=== PATIENT | male | born 1925 | race Caucasian/White ===

== ENCOUNTER 2017-08-17 21:49 | Inpatient (IN) | payer OTHER ==
--- NOTE | 2017-08-17 21:51 | PDOC ---
History of Present Illness - General History Source: Patient, EMS, Old Records Exam Limitations: No Limitations - History of Present Illness Initial Comments: 08/17/17 22:17 The patient is an 89 year old male with a significant PMH of eyelid CA, AFIB (s/ p pacemaker), HTN, hyperlipidemia, diabetes, and extensive cardiac history but unclear if had CHF who presents to the emergency department via EMS from [facility] in respiratory distress. As per EMS, the patients O2 sat. in [facility] was in the 70s. EMS reports starting the patient on BiPaP en route, which brought her O2 sat. to the mid to high 80s. The patient denies any chest pain. The patient denies headache and dizziness. Denies fever, chills, nausea, vomit, diarrhea and constipation. Denies dysuria, frequency, urgency and hematuria. Allergies: Dabigatran etexilate mesylate. Past surgical history: Pacemaker placement (2005, replaced 2013). Open cholecystectomy. Right carpal tunnel release. Social history: Social alcohol use. Former smoker. No reported drug use. PCP: Dr. Carranza <Jermain Farr - Last Filed: 08/17/17 22:17> - General History Source: Patient <Cesar Alvarez - Last Filed: 08/18/17 02:50> - General Stated Complaint: SOB Time Seen by Provider: 08/17/17 21:51 Past History <Jermain Farr - Last Filed: 08/17/17 22:17> - Past Medical History Anemia: No Asthma: No Cancer: Yes (RIGHT LOWER LID) Cardiac Disorders: Yes (A-FIB,PACEMAKER,ANGINA) CVA: No COPD: No CHF: No Dementia: No (FORGETFUL) Diabetes: Yes (TYPE 2) GI Disorders: No Disorders: Yes (RECENT UTI-COMPLETED A/B THERAPY) HTN: Yes Hypercholesterolemia: Yes Liver Disease: No Seizures: No Thyroid Disease: No - Surgical History Abdominal Surgery: Yes (OPEN CHOLEY) Appendectomy: No Cardiac Surgery: Yes (PACEMAKER-2005,REPLACED 12/2013) Cholecystectomy: Yes (OPEN-1974) Lung Surgery: No Neurologic Surgery: No Orthopedic Surgery: Yes (RIGHT CARPAL TUNNEL RELEASE) - Suicide/Smoking/Psychosocial Hx Smoking History: Former smoker Have you smoked in the past 12 months: No Number of Cigarettes Smoked Daily: 20 If you are a former smoker, when did you quit?: 1988 Hx Alcohol Use: Yes (SOCIALLY) Drug/Substance Use Hx: No Substance Use Type: Alcohol Hx Substance Use Treatment: No <Cesar Alvarez - Last Filed: 08/18/17 02:50> - Past Medical History Allergies/Adverse Reactions: Allergies Allergy/AdvReac Type Severity Reaction Status Date / Time dabigatran etexilate mesylate Allergy Intermediate GUM Verified 08/17/17 22:06 [From Pradaxa] BLEEDING Home Medications: Ambulatory Orders Aspirin [Aspirin EC] 81 mg PO DAILY 03/26/15 Atenolol [Tenormin -] 25 mg PO DAILY 03/26/15 Atorvastatin Ca [Lipitor] 40 mg PO DAILY 03/26/15 Digoxin [Lanoxin -] 0.25 mg PO DAILY 03/26/15 Insulin Glargine,Hum.rec.anlog [Lantus Solostar PEN -] 60 units SQ HS 03/26/15 Sitagliptin Phosphate [Januvia] 100 mg PO DAILY 03/26/15 Warfarin Sodium [Coumadin] 5 mg PO DAILY #0 03/26/15 metFORMIN HCL [Glucophage] 1,000 mg PO BID 03/26/15 Brimonidine Tartrate [Alphagan P 0.1% -] 1 drop BID 08/18/17 Review of Systems - Review of Systems Able to Perform ROS?: Yes Comments:: 08/17/17 22:17 CONSTITUTIONAL: Absent: fever, chills, diaphoresis, generalized weakness, malaise, loss of appetite HEENT: Absent: rhinorrhea, nasal congestion, throat pain, throat swelling, difficulty swallowing, mouth swelling, ear pain, eye pain, visual Changes CARDIOVASCULAR: Absent: chest pain, syncope, palpitations, irregular heart rate, lightheadedness , peripheral edema RESPIRATORY: (+) Shortness of breath. Absent: cough, shortness of breath, dyspnea with exertion, orthopnea, wheezing, stridor, hemoptysis GASTROINTESTINAL: Absent: abdominal pain, abdominal distension, nausea, vomiting, diarrhea, constipation, melena, hematochezia GENITOURINARY: Absent: dysuria, frequency, urgency, hesitancy, hematuria, flank pain, genital pain MUSCULOSKELETAL: Absent: myalgia, arthralgia, joint swelling SKIN: Absent: rash, itching, pallor HEMATOLOGIC/IMMUNOLOGIC: Absent: easy bleeding, easy bruising, lymphadenopathy, frequent infections ENDOCRINE: Absent: unexplained weight gain, unexplained weight loss, heat intolerance, cold intolerance NEUROLOGIC: Absent: headache, focal weakness or paresthesias, dizziness, unsteady gait, seizure, mental status changes, bladder or bowel incontinence PSYCHIATRIC: Absent: anxiety, depression, suicidal or homicidal ideation, hallucinations. <Jermain Farr - Last Filed: 08/17/17 22:17> *Physical Exam - Physical Exam Comments: 08/17/17 22:18 GENERAL: Well developed, well nourished. Awake and alert. No acute distress. HEENT: Normocephalic, atraumatic. PERRLA, EOMI. No conjunctival pallor. Sclera are non- icteric. Moist mucous membranes. Oropharynx is clear. NECK: Supple. Full ROM. No JVD. Carotid pulses 2+ and symmetric, without bruits. No thyromegaly. No lymphadenopathy. CARDIOVASCULAR: (+) Tachycardic. Regular rhythm. No murmurs, rubs, or gallops. Distal pulses are 2+ and symmetric. PULMONARY: (+) Moderate respiratory distress. (+) Scattered crackles in upper lung miramontes. (+) Decreased breath sounds bilaterally. No wheezing, rales or rhonchi. ABDOMINAL: Soft. Non-tender. Non-distended. No rebound or guarding. No organomegaly. Normoactive bowel sounds. MUSCULOSKELETAL Normal range of motion at all joints. No bony deformities or tenderness. No CVA tenderness. EXTREMITIES: No cyanosis. No clubbing. No edema. No calf tenderness. SKIN: Warm and dry. Normal capillary refill. No rashes. No jaundice. NEUROLOGICAL: Alert, awake, appropriate. Cranial nerves 2-12 intact. No deficits to light touch and temperature in face, upper extremities and lower extremities. No motor deficits in the in face, upper extremities and lower extremities. Normoreflexic in the upper and lower extremities. Normal speech. Toes are downgoing bilaterally. Gait is normal without ataxia. PSYCHIATRIC: Cooperative. Good eye contact. Appropriate mood and affect. <Jermain Farr - Last Filed: 08/17/17 22:17> Heart Score/ECG Review #1 08/17/17 22:06 Vent rate 81 bpm Atrial fibrillation Left bundle bracnh block Abnormal ECG <Jermain Farr - Last Filed: 08/17/17 22:17> ED Treatment Course - LABORATORY CBC & Chemistry Diagram: 08/17/17 22:00 08/17/17 22:00 <Jermain Farr - Last Filed: 08/17/17 22:17> - LABORATORY CBC & Chemistry Diagram: 08/17/17 22:00 08/17/17 22:00 <Cesar Alvarez - Last Filed: 08/18/17 02:50> Medical Decision Making - Medical Decision Making 08/17/17 23:58 PT seen by ICU CONSUMER ADVOCATE Jennings. not an ICU candidate at this time. Dr. Alvarez: The scribe's documentation has been prepared under my direction and personally reviewed by me in its entirery. I confirm that the note above accurately reflects all work, treatment, procedures, and medical decision making performed by me. 08/18/17 02:47 Pt found to be in pulmonary edema. Pt was diuresed with Lasix 100mg IVP. Pt clinically improved. Will continue to observe here in ED. <Cesar Alvarez - Last Filed: 08/18/17 02:50> *DC/Admit/Observation/Transfer - Attestations Scribe Attestion: 08/17/17 22:18 Documentation prepared by Jermain Farr, acting as biomedical engineering professor for Cesar Alvarez DO. <Jermain Farr - Last Filed: 08/17/17 22:17> - Discharge Dispostion Admit: Yes <Cesar Alvarez - Last Filed: 08/18/17 02:50> Diagnosis at time of Disposition: Pulmonary edema Qualifiers: Chronicity: acute Qualified Code(s): J81.0 - Acute pulmonary edema - Discharge Dispostion Condition at time of disposition: Stable
[2017-08-17] MEDS ORDERED: FUROSEMIDE 40 MG/4 ML INJECTABLE VIAL IVPUSH ONE ×3 (21:53→22:32)
[2017-08-17] MEDS ORDERED: NITROGLYCERIN 2% OINTMENT - 1GM PACKET TD ONE ×2 (21:55→21:57)
[2017-08-17] MEDS ORDERED: FUROSEMIDE 40 MG/4 ML INJECTABLE VIAL ONE ×2 (21:56→22:33)
[2017-08-17 22:10] LABS: EOS % 1.6 % (0-4.5); HEMATOCRIT 45.6 % (35.4-49); HEMOGLOBIN 14.8 GM/dL (11.7-16.9); MCH 32.7 pg (25.7-33.7); MCHC 32.4 g/dl (32.0-35.9); MEAN CELL VOLUME 100.7 fl (80-96); MEAN PLT VOLUME 9.8 fl (7.5-11.1); MONO % 8.4 % (3.8-10.2); PLATELET COUNT 335 K/MM3 (134-434); RBC 4.53 M/mm3 (4.00-5.60); RDW 14.2 % (11.9-15.9); WHITE BLOOD COUNT 18.5 K/mm3 (4.0-10.0)
[2017-08-17 22:23] LABS: INR 1.48 (0.82-1.09); PROTHROMBIN TIME (PATIENT) 16.7 SEC (9.98-11.88)
[2017-08-17 22:32] LABS: ALBUMIN 3.4 g/dl (3.4-5.0); ANION GAP 11 (8-16); BILIRUBIN,TOTAL 0.5 mg/dL (0.2-1.0); BLOOD UREA NITROGEN 37 mg/dL (7-18); CALCIUM 8.4 mg/dL (8.5-10.1); CHLORIDE 102 mmol/L (98-107); CO2 21 mmol/L (21-32); CREATININE 1.5 mg/dL (0.7-1.3); MAGNESIUM 2.1 mg/dL (1.8-2.4); SGOT/AST 50 U/L (15-37); SGPT/ALT 25 U/L (12-78); SODIUM 134 mmol/L (136-145); TOT PROT 7.2 g/dl (6.4-8.2)
[2017-08-17 22:35] VITALS: BMI 25.0
[2017-08-17 22:35] LABS: ALK PHOS 110 U/L (45-117)
[2017-08-17] MEDS ORDERED: INSULIN REGULAR HUMAN 100 UNITS/ML *VIAL IVPUSH ONE (22:45)
[2017-08-17] MEDS ORDERED: CALCIUM GLUCONATE 10% - 1,000 MG/10 ML VIAL IVPUSH ONE (22:45)
[2017-08-17] MEDS ORDERED: SODIUM BICARBONATE 8.4% 50 MEQ/50 ML DISP.SYRIN IVPUSH ONE (22:45)
[2017-08-17 22:47] LABS: GLUCOSE,RANDOM 335 mg/dL (74-106)
[2017-08-17 22:48] LABS: POTASSIUM 6.1 mmol/L (3.5-5.1)
[2017-08-17] MEDS ORDERED: CALCIUM GLUCONATE 10% - 1,000 MG/10 ML VIAL ONE (23:07)
[2017-08-17] MEDS ORDERED: SODIUM BICARBONATE 8.4% - 50 ML ONE (23:07)
[2017-08-17] MEDS ORDERED: INSULIN REGULAR HUMAN 100 UNITS/ML *VIAL ONE (23:07)
[2017-08-17] MEDS ORDERED: ENOXAPARIN NA (PORCINE) 80 MG/0.8 ML DISP.SYRIN SQ SCH (23:30)
[2017-08-17] MEDS ORDERED: ENOXAPARIN NA (PORCINE) 80 MG/0.8 ML DISP.SYRIN SQ ONE ×2 (23:30→23:38)
[2017-08-17] MEDS ORDERED: VANCOMYCIN 1,000 MG in DEXTROSE 5%-WATER - 250 ML IVPB ONE (23:32)
[2017-08-17] MEDS ORDERED: PIPERACILLIN/TAZOB 3.375 GM 50 ML IVPB ONE (23:33)
--- NOTE | 2017-08-17 23:36 | HP ---
CHIEF COMPLAINT: PCP: HISTORY OF PRESENT ILLNESS: ER course was notable for: (1) (2) (3) Recent Travel: PAST MEDICAL HISTORY: PAST SURGICAL HISTORY: Social History: Smoking: Alcohol: Drugs: Family History: Allergies dabigatran etexilate mesylate [From Pradaxa] Allergy (Intermediate, Verified 12/27 22:06) GUM BLEEDING HOME MEDICATIONS: Home Medications Medication Instructions Recorded Aspirin [Aspirin EC] 81 mg PO DAILY 03/26/15 Atenolol [Tenormin -] 25 mg PO DAILY 03/26/15 Atorvastatin Ca [Lipitor] 40 mg PO DAILY 03/26/15 Digoxin [Lanoxin -] 0.25 mg PO DAILY 03/26/15 Insulin Glargine,Hum.rec.anlog 60 units SQ HS 03/26/15 [Lantus Solostar PEN -] Sitagliptin Phosphate [Januvia] 100 mg PO DAILY 03/26/15 Warfarin Sodium [Coumadin] 5 mg PO DAILY #0 03/26/15 metFORMIN HCL [Glucophage] 1,000 mg PO BID 03/26/15 REVIEW OF SYSTEMS CONSTITUTIONAL: Absent: fever, chills, diaphoresis, generalized weakness, malaise, loss of appetite, weight change HEENT: Absent: rhinorrhea, nasal congestion, throat pain, throat swelling, difficulty swallowing, mouth swelling, ear pain, eye pain, visual changes CARDIOVASCULAR: Absent: chest pain, syncope, palpitations, irregular heart rate, lightheadedness , peripheral edema RESPIRATORY: Absent: cough, shortness of breath, dyspnea with exertion, orthopnea, wheezing, stridor, hemoptysis GASTROINTESTINAL: Absent: abdominal pain, abdominal distension, nausea, vomiting, diarrhea, constipation, melena, hematochezia GENITOURINARY: Absent: dysuria, frequency, urgency, hesitancy, hematuria, flank pain, genital pain MUSCULOSKELETAL: Absent: myalgia, arthralgia, joint swelling, back pain, neck pain SKIN: Absent: rash, itching, pallor HEMATOLOGIC/IMMUNOLOGIC: Absent: easy bleeding, easy bruising, lymphadenopathy, frequent infections ENDOCRINE: Absent: unexplained weight gain, unexplained weight loss, heat intolerance, cold intolerance NEUROLOGIC: Absent: headache, focal weakness or paresthesias, dizziness, unsteady gait, seizure, mental status changes, bladder or bowel incontinence PSYCHIATRIC: Absent: anxiety, depression, suicidal or homicidal ideation, hallucinations. PHYSICAL EXAMINATION Vital Signs - 24 hr 08/17/17 08/17/17 22:05 22:06 Pulse Rate 77 Respiratory 38 H Rate Blood Pressure 172/76 O2 Sat by Pulse 98 65 L Oximetry (%) GENERAL: Awake, alert, and fully oriented, in no acute distress. HEAD: Normal with no signs of trauma. EYES: Pupils equal, round and reactive to light, extraocular movements intact, sclera anicteric, conjunctiva clear. No lid lag. EARS, NOSE, THROAT: Ears normal, nares patent, oropharynx clear without exudates. Moist mucous membranes. NECK: Normal range of motion, supple without lymphadenopathy, JVD, or masses. LUNGS: Breath sounds equal, clear to auscultation bilaterally. No wheezes, and no crackles. No accessory muscle use. HEART: Regular rate and rhythm, normal S1 and S2 without murmur, rub or gallop. ABDOMEN: Soft, nontender, not distended, normoactive bowel sounds, no guarding, no rebound, no masses. No hepatomegaly or splenomegaly. MUSCULOSKELETAL: Normal range of motion at all joints. No bony deformities or tenderness. No CVA tenderness. UPPER EXTREMITIES: 2+ pulses, warm, well-perfused. No cyanosis. No clubbing. No peripheral edema. LOWER EXTREMITIES: 2+ pulses, warm, well-perfused. No calf tenderness. No peripheral edema. NEUROLOGICAL: Cranial nerves II-XII intact. Normal speech. Normal gait. PSYCHIATRIC: Cooperative. Good eye contact. Appropriate mood and affect. SKIN: Warm, dry, normal turgor, no rashes or lesions noted, normal capillary refill. Laboratory Results - last 24 hr 08/17/17 08/17/17 08/17/17 22:00 22:00 22:00 WBC 18.5 H RBC 4.53 Hgb 14.8 Hct 45.6 MCV 100.7 H MCH 32.7 MCHC 32.4 RDW 14.2 Plt Count 335 MPV 9.8 Neutrophils % 75.0 Lymphocytes % 14.0 Monocytes % 8.4 Eosinophils % 1.6 Basophils % 1.0 PT with INR 16.70 H INR 1.48 H Sodium 134 L Potassium 6.1 H* Chloride 102 Carbon Dioxide 21 Anion Gap 11 BUN 37 H Creatinine 1.5 H Creat Clearance w eGFR 44.07 Random Glucose 335 H* Lactic Acid Calcium 8.4 L Magnesium 2.1 Total Bilirubin 0.5 AST 50 H ALT 25 Alkaline Phosphatase 110 Creatine Kinase 45 Troponin I 0.14 H B-Natriuretic Peptide Total Protein 7.2 Albumin 3.4 08/17/17 08/17/17 22:00 22:00 WBC RBC Hgb Hct MCV MCH MCHC RDW Plt Count MPV Neutrophils % Lymphocytes % Monocytes % Eosinophils % Basophils % PT with INR INR Sodium Potassium Chloride Carbon Dioxide Anion Gap BUN Creatinine Creat Clearance w eGFR Random Glucose Lactic Acid 6.9 H* Calcium Magnesium Total Bilirubin AST ALT Alkaline Phosphatase Creatine Kinase Troponin I B-Natriuretic Peptide 4683.30 H Total Protein Albumin ASSESSMENT/PLAN:
[2017-08-17] MEDS ORDERED: VANCOMYCIN 1 GRAM (PRE-DOCKED) 1,000 MG/250 ML BAG IVPB ONE (23:38)
--- NOTE | 2017-08-17 23:43 | PN ---
Teaching Attending Note Name of Resident: Layla Bunch ATTENDING PHYSICIAN STATEMENT I saw and evaluated the patient. I reviewed the resident's note and discussed the case with the resident. I agree with the resident's findings and plan as documented. SUBJECTIVE: 89 yo M with pmhx of eyelid ca, Afib (s/p PPm), HTN, HLD, DM, ? CHF who presents from [facility]. Pt. denies chest pain or pressure. Placed on BIPAP upon arrival to ED as pt. had 02 sat 0f 65%. Found to be in pulmonary edema. OBJECTIVE: Physical: VS: Vital Signs Period Temp Pulse Resp BP Sys/Hernandez Pulse Ox Last 24 Hr 77 38 172/76 65-98 GEN: NAD, Resting in bed, Awake and Alert HEENT: NCAT, PERRL, throat without erythema or exudates CARD: RRR S1, S2 RESP: Coarse breath sounds all miramontes ABD: BSX4, NTD to palpation EXT: - C/C/E CBCD WBC 18.5 K/mm3 (4.0-10.0) H 08/17/17 22:00 RBC 4.53 M/mm3 (4.00-5.60) 08/17/17 22:00 Hgb 14.8 GM/dL (11.7-16.9) 08/17/17 22:00 Hct 45.6 % (35.4-49) 08/17/17 22:00 MCV 100.7 fl (80-96) H 08/17/17 22:00 MCHC 32.4 g/dl (32.0-35.9) 08/17/17 22:00 RDW 14.2 % (11.9-15.9) 08/17/17 22:00 Plt Count 335 K/MM3 (134-434) 08/17/17 22:00 MPV 9.8 fl (7.5-11.1) 08/17/17 22:00 CMP Sodium 134 mmol/L (136-145) L 08/17/17 22:00 Potassium 6.1 mmol/L (3.5-5.1) H* 08/17/17 22:00 Chloride 102 mmol/L (98-107) 08/17/17 22:00 Carbon Dioxide 21 mmol/L (21-32) 08/17/17 22:00 Anion Gap 11 (8-16) 08/17/17 22:00 BUN 37 mg/dL (7-18) H 08/17/17 22:00 Creatinine 1.5 mg/dL (0.7-1.3) H 08/17/17 22:00 Creat Clearance w eGFR 44.07 (>60) 08/17/17 22:00 Random Glucose 335 mg/dL (74-106) H* 08/17/17 22:00 Calcium 8.4 mg/dL (8.5-10.1) L 08/17/17 22:00 Total Bilirubin 0.5 mg/dL (0.2-1.0) 08/17/17 22:00 AST 50 U/L (15-37) H 08/17/17 22:00 ALT 25 U/L (12-78) 08/17/17 22:00 Alkaline Phosphatase 110 U/L (45-117) 08/17/17 22:00 Total Protein 7.2 g/dl (6.4-8.2) 08/17/17 22:00 Albumin 3.4 g/dl (3.4-5.0) 08/17/17 22:00 CARDIAC ENZYMES Creatine Kinase 45 IU/L (39-308) 08/17/17 22:00 Troponin I 0.14 ng/ml (0.00-0.05) H 08/17/17 22:00 CXR- ? Infilterates with bilateral venous congestion. 08/17/17 22:06 Vent rate 81 bpm Atrial fibrillation Left bundle bracnh block Abnormal ECG Home Medications Medication Instructions Recorded Aspirin [Aspirin EC] 81 mg PO DAILY 03/26/15 Atenolol [Tenormin -] 25 mg PO DAILY 03/26/15 Atorvastatin Ca [Lipitor] 40 mg PO DAILY 03/26/15 Digoxin [Lanoxin -] 0.25 mg PO DAILY 03/26/15 Insulin Glargine,Hum.rec.anlog 60 units SQ HS 03/26/15 [Lantus Solostar PEN -] Sitagliptin Phosphate [Januvia] 100 mg PO DAILY 03/26/15 Warfarin Sodium [Coumadin] 5 mg PO DAILY #0 03/26/15 metFORMIN HCL [Glucophage] 1,000 mg PO BID 03/26/15 ASSESSMENT AND PLAN: 89 yo M with pmhx of eyelid ca, Afib (s/p PPm), HTN, HLD, DM, ? CHF who presents from [facility], with shortness of breath, being admitted for Acute CHF ans severe sepsis 1.) Acute Hypoxic Respiratory Failure - Repeat ABG - C/W BIPAP 2.) Acute Congestive Heart Failure - No recent echo, possible systolic - LAsix 100mg given in ED - Strict I/O - ECHO - Na/Fluid restrict - Trend Trop/EKG - C/W Lasix IV in Am - Cardiology consult 3.) Sepsis Severe - Most likely due to Pneumonia HCAP/Influenza A Positive - Droplet Percautions/Isolation/Linda-Flu Renally Dosed - Vanco/Zosyn (from MS) - ID consult - REPEAT LA - Linda Flu 4.) Elevated Troponin - Possibly Demand - LBBB unknown if old or new - Denies any chest pain - Trend Troponin/EKG - ECHO/Cards consult 5.) HLD - C/W Home meds 6.) A-Fib - Rate controlle -C/W Digoxin - On Coumadin, Not theraputic - Lovenox - Goal INR 2-3 7.) Hyperk K - S/P Calcium, Alb, Insulin/Dextrose in ED 8.) Uncontrolled DM - HOLD PO meds, including Metformin - FS - RAISS - NPO and poor po intake, Hold Lantus - Chk. HgbA1c 9.) ESTEBAN?CKD - U lytes - Trend Cr - Avoid Nephrotoxins 10.) Dvt Ppx - On Lovenox Asked for ICU Eval, not a candidate at this time
[2017-08-17 23:51] LABS: ARTERIAL BLOOD GAS BASE EXCESS -1.6 meq/l (-2-2); ARTERIAL BLOOD GAS PCO2 32.8 mmHg (35-45); ARTERIAL BLOOD GAS pH 7.43 (7.35-7.45); CARBOXYHEMOGLOBIN 1.2 gm% (0.5-2.0)
[2017-08-17 23:52] LABS: ALLENS TEST POSITIVE
--- NOTE | 2017-08-17 23:53 | PN ---
Progress Note (short form) - Note Progress Note: Asked by ED Attending to Evaluate Pt for possible ICU level of care. Briefly Mr Carty is 89 year old male with a significant PMH of eyelid CA, AFIB (s/p pacemaker), HTN, hyperlipidemia, diabetes, and extensive cardiac history unk CHF/no Echo in our records. Pt tx to emergency department via EMS from [facility] for respiratory distress. Per EMS, the patients O2 sat. in [facility] was in the 70s on [place]. EMS reports starting the patient on BiPaP en route, which improved sats to the mid to high 80s. The patient denies : LOC, chest pain , headache and dizziness, fever, chills, nausea, vomit, diarrhea and constipation. Denies dysuria, frequency, urgency and hematuria. In ED pt was afebrile, BP 170/70s, paced rhythm 70s, RR 30s. CXR with pulm edema L > R, no dense infiltrate. Pt given 100mg lasix with good UOP. Greatly improved resp status with diuresis. Started on PipTaz and Vanco for HCAP. FLu swab pending. Vital Signs Temp Pulse 77 08/17/17 22:06 Resp 38 H 08/17/17 22:06 BP 172/76 08/17/17 22:06 Pulse Ox 65 L 08/17/17 22:06 Intake & Output 08/16/17 08/17/17 08/17/17 23:59 11:59 23:59 Weight 72.575 kg Other: Height 5 ft 7 in Body Mass Index (BMI) 25.0 Weight Measurement Method Estimated by Staff Current Medications Enoxaparin Sodium (Lovenox -) 80 mg SQ ONCE BHAVIN Vancomycin HCl 1,000 mg/ (Dextrose) 250 mls @ 250 mls/hr IVPB ONCE ONE PRN Reason: Protocol Stop: 08/18/17 00:31 Piperacillin/Tazobactam/Dextrose (Zosyn 3.375gm Ivpb (Premix)) 50 mls @ 100 mls /hr IVPB ONCE ONE PRN Reason: Protocol Stop: 08/18/17 00:02 PE: GEn: non toxic non distress HEENT: no jvd, NCAT PULM: crackles bilateral bases, R > L , no wheezes ABD: soft, NT EXT: 1+ tibial edema Neuro: non focal A/ eld man with hypoxic resp failure, improving with diuresis, broad spectum ab Plan: -agree with diuresis as tolerated with BP, already improved nicely - agree with broad spectrum abx for HCAP, pending cxl - f/u flu swab - once out 1.5-2L would trial off NIV to determine if can maintain adequate ventilation and oxygenation - if cont to improve wtih this trajectory, ok for floor vs tele depending on clinical status [place] ACNP [facility] [id number]
[2017-08-17 23:54] LABS: ARTERIAL BLD GAS O2 SATURATION 99.6 % (90-98.9)
[2017-08-17 23:55] LABS: URINE APPEARANCE CLEAR; URINE BILIRUBIN NEGATIVE (NEGATIVE); URINE BLOOD NEGATIVE (NEGATIVE); URINE COLOR LTYELLOW; URINE GLUCOSE (UA) NEGATIVE (NEGATIVE); URINE KETONE NEGATIVE (NEGATIVE); URINE LEUK ESTERASE TRACE (NEGATIVE); URINE NITRITE NEGATIVE (NEGATIVE); URINE PROTEIN NEGATIVE (NEGATIVE); URINE UROBILINOGEN NEGATIVE mg/dL (0.2-1.0)
[2017-08-18] LABS: EPI CELLS RARE /HPF (FEW); URINE BACTERIA RARE /hpf (NONE SEEN); URINE MUCUS RARE
--- NOTE | 2017-08-18 00:15 | HP ---
CHIEF COMPLAINT: cough, resp distress PCP: HISTORY OF PRESENT ILLNESS: 89 y/o M with PMH dementia, cataracts, PVD, CAD, overactive bladder, hx falls, metabolic encephalopathy, eyelid CA, afib (s/p pacemaker), HTN, HLD, diabetes ( with nephropathy), hx falls, who presents to ED from [facility] with respiratory distress. As per EMS, pt's 02 sat at [facility] was into the 70's and once pt was started on BiPAP, he improved into the 80's. In ED pt on following settings: IPAP 14/EPAP 6/ Rate 38/ 100% Fi02, sat 100%. Pt currently only endorses dry cough. Denies GIBSON, fever, chills, SOB, chest pain or pressure, changes in urinary or bowel function. ER course was notable for: (1) Ca gluconate 10% x 1 (2) Lasix 80mg IVP, 60mg IVP, 40mg IVP (3) NG 2% paste (4) Sodium bicarb 50mEq IVP x 1 (5) Vanc 1g, zosyn 3.375g x 1 Recent Travel: none PAST MEDICAL HISTORY: dementia, cataracts, PVD, CAD, overactive bladder, hx falls, metabolic encephalopathy, eyelid CA, afib (s/p pacemaker), HTN, HLD, diabetes (with nephropathy), hx falls PAST SURGICAL HISTORY: pacemaker placement (2005, replaced 2013), open cholecystectomy, R carpal tunnel release Social History: Smoking: smoked in past (does not know when) 1 ppd x 8-10 yrs Alcohol: socially Drugs: denies Family History: non-contributory Allergies dabigatran etexilate mesylate [From Pradaxa] Allergy (Intermediate, Verified 12/27 22:06) GUM BLEEDING HOME MEDICATIONS: Home Medications Medication Instructions Recorded Aspirin [Aspirin EC] 81 mg PO DAILY 03/26/15 Atenolol [Tenormin -] 25 mg PO DAILY 03/26/15 Atorvastatin Ca [Lipitor] 40 mg PO DAILY 03/26/15 Digoxin [Lanoxin -] 0.25 mg PO DAILY 03/26/15 Insulin Glargine,Hum.rec.anlog 60 units SQ HS 03/26/15 [Lantus Solostar PEN -] Sitagliptin Phosphate [Januvia] 100 mg PO DAILY 03/26/15 Warfarin Sodium [Coumadin] 5 mg PO DAILY #0 03/26/15 metFORMIN HCL [Glucophage] 1,000 mg PO BID 03/26/15 REVIEW OF SYSTEMS CONSTITUTIONAL: Absent: fever, chills, diaphoresis, generalized weakness, malaise, loss of appetite, weight change HEENT: Absent: rhinorrhea, nasal congestion, throat pain, throat swelling, difficulty swallowing, mouth swelling, ear pain, eye pain, visual changes CARDIOVASCULAR: Absent: chest pain, syncope, palpitations, irregular heart rate, lightheadedness , peripheral edema RESPIRATORY: +SOB Absent: cough, shortness of breath, dyspnea with exertion, orthopnea, wheezing, stridor, hemoptysis GASTROINTESTINAL: Absent: abdominal pain, abdominal distension, nausea, vomiting, diarrhea, constipation, melena, hematochezia GENITOURINARY: Absent: dysuria, frequency, urgency, hesitancy, hematuria, flank pain, genital pain MUSCULOSKELETAL: Absent: myalgia, arthralgia, joint swelling, back pain, neck pain SKIN: Absent: rash, itching, pallor HEMATOLOGIC/IMMUNOLOGIC: Absent: easy bleeding, easy bruising, lymphadenopathy, frequent infections ENDOCRINE: Absent: unexplained weight gain, unexplained weight loss, heat intolerance, cold intolerance NEUROLOGIC: Absent: headache, focal weakness or paresthesias, dizziness, unsteady gait, seizure, mental status changes, bladder or bowel incontinence PSYCHIATRIC: Absent: anxiety, depression, suicidal or homicidal ideation, hallucinations. PHYSICAL EXAMINATION Vital Signs 08/17/17 22:06 Pulse Rate 77 Respiratory 38 H Rate Blood Pressure 172/76 O2 Sat by Pulse 65 L Oximetry (%) GENERAL: Sitting comfortably. Awake, alert, in no acute distress. On BiPAP HEAD: Normal with no signs of trauma. EYES: Pupils equal, round and reactive to light, extraocular movements intact, sclera anicteric, conjunctiva clear. EARS, NOSE, THROAT: Ears normal, nares patent, oropharynx clear without exudates. Moist mucous membranes. NECK: Normal range of motion, supple without lymphadenopathy, JVD, or masses. LUNGS: scattered rhonchi appreciated, crackles at bases. no wheezing or accessory m. usage. HEART: regular rate and rhythm, normal S1 and S2 without murmur, rub or gallop. ABDOMEN: Soft, nontender, not distended, normoactive bowel sounds, no guarding, no rebound, no masses. MUSCULOSKELETAL: Normal range of motion at all joints. No bony deformities or tenderness LOWER EXTREMITIES: 2+ posterior tibial pulses, warm, well-perfused. No calf tenderness. No peripheral edema. NEUROLOGICAL: Cranial nerves II-XII intact. Normal speech. Normal gait. Laboratory Results 08/17/17 08/17/17 08/17/17 22:00 22:00 22:00 WBC 18.5 H RBC 4.53 Hgb 14.8 Hct 45.6 MCV 100.7 H MCH 32.7 MCHC 32.4 RDW 14.2 Plt Count 335 MPV 9.8 Neutrophils % 75.0 Lymphocytes % 14.0 Monocytes % 8.4 Eosinophils % 1.6 Basophils % 1.0 PT with INR 16.70 H INR 1.48 H Pressure Support Vent Sodium 134 L Potassium 6.1 H* Chloride 102 Carbon Dioxide 21 Anion Gap 11 BUN 37 H Creatinine 1.5 H Creat Clearance w eGFR 44.07 Random Glucose 335 H* Lactic Acid Calcium 8.4 L Magnesium 2.1 Total Bilirubin 0.5 AST 50 H ALT 25 Alkaline Phosphatase 110 Creatine Kinase 45 Troponin I 0.14 H B-Natriuretic Peptide Total Protein 7.2 Albumin 3.4 Urine Color 08/17/17 08/17/17 08/17/17 22:00 22:00 23:27 INR Puncture Site Right radial ABG pH 7.43 ABG pCO2 at Pt Temp 32.8 L ABG pO2 at Pt Temp 175.0 H* ABG HCO3 21.4 L ABG O2 Sat (Measured) 99.6 H* ABG O2 Content 19.2 ABG Base Excess -1.6 Toni Test Positive Carboxyhemoglobin 1.2 Methemoglobin 0.8 O2 Delivery Device Bipap Oxygen Flow Rate 100% Vent Mode No Result Required. Vent Rate No Result Required. Random Glucose Lactic Acid 6.9 H* ALT B-Natriuretic Peptide 4683.30 H Microbiology 08/17/17 23:30 Nasopharyngeal Swab Influenza Types A,B Antigen (VADIM) - Final 08/17/17 23:30 Nasopharyngeal Swab - Final -Blood cx- pending -Urine cx- pending Radio CXR: congestion, blunting of costophrenic angles - b/l effusions, with potential superimposed infiltrate- official report pending ASSESSMENT/PLAN: 89 y/o M with PMH dementia, cataracts, PVD, CAD, overactive bladder, hx falls, metabolic encephalopathy, eyelid CA, afib (s/p pacemaker), HTN, HLD, diabetes ( with nephropathy), hx falls, who presents to ED from [facility] with respiratory distress. Pt admitted to telemetry for acute hypoxic respiratory failure 2/2 Flu, CHF exacerbation. #Acute hypoxic respiratory failure 2/2 Flu, CHF exacerbation -F/u AM ABG -Continue on BiPAP #Influenza A+ -started on Tamiflu 30mg PO BID - for 5 day course. Renally dosed -on isolation precautions- droplet #Acute CHF exacerbation -Elevated BNP -F/u ECHO -Strict I's & O's -Daily weights -Na/fluid restriction -Lasix 40mg IVP in AM, evaluate continued use. Elevated Cr #Sepsis 2/2 HCAP -Leukocytosis 18.5, lactate 6.9 -Received vanc, zosyn in ED x 1 -Continued on vanc 1g IVPB qd, zosyn 3.375g q6h for HCAP coverage -F/u repeat lactate -F/u blood cx, urine cx -F/u Urine Ag -ID consult- Dr. King #Elevated troponin most likely 2/2 demand 2/2 CHF exacerbation -Troponin +0.14, without chest pain -EKG: widening of QRS, ventricular rhythm with pacing, possible LBBB -Trend troponins -F/u EKG as needed -Cardio consult- Dr. Canas #Afib -Subtherapeutic INR 1.48, goal 2-3 -Changed from coumadin to lovenox 70mg BID for a/c -Continue digoxin 0.25 mg PO daily for rate control -Holding BB, as pt with comorbid resp issues #Hyperkalemia -widening of QRS - EKG changes, thus Ca gluconate given in ED -Repeat ca gluconate/insulin/nebs/d50 if needed -Monitor BMP #IDDM -Hold metformin, home meds - avoid lactic acidosis. Also as Cr 1.5 -ISS ACHS -BGM q4h -NPO #ESTEBAN superimposed on CKD -Follow Cr -Urine electrolytes -F/u BMP #PPX DVT: lovenox 70 SQ BID #F/E/N No fluids to avoid vol overload, CHF Monitor electrolytes, ivana K NPO #Dispo Telemetry monitoring Visit type - Emergency Visit Emergency Visit: Yes ED Registration Date: 08/17/17 Care time: The patient presented to the Emergency Department on the above date and was hospitalized for further evaluation of their emergent condition. - New Patient This patient is new to me today: Yes Date on this admission: 08/18/17 - Critical Care Critical Care patient: No
[2017-08-18] MEDS ORDERED: PIPERACILLIN/TAZOB 3.375 GM 3.375 GM/50 ML BAG IVPB ONE ×2 (00:48→08:21)
[2017-08-18] MEDS: OSELTAMIVIR PHOSPHATE 30 MG CAPSULE PO SCH ×3 (01:50→23:20)
[2017-08-18] MEDS ORDERED: PIPERACIL/TAZOB 3.375 GM 3.375 GM/50 ML PREMIX IVPB SCH (05:00)
[2017-08-18] MEDS ORDERED: FUROSEMIDE 40 MG/4 ML INJECTABLE VIAL IVPUSH ONE (06:00)
[2017-08-18 06:42] LABS: ARTERIAL BLD GAS O2 SATURATION 97.7 % (90-98.9); ARTERIAL BLOOD GAS BASE EXCESS -0.7 meq/l (-2-2); ARTERIAL BLOOD GAS PCO2 30.6 mmHg (35-45); ARTERIAL BLOOD GAS PO2 90.8 mmHg (68-100); ARTERIAL BLOOD GAS pH 7.47 (7.35-7.45)
[2017-08-18 06:43] LABS: ALLENS TEST POSITIVE
[2017-08-18 07:27] LABS: HEMATOCRIT 41.5 % (35.4-49); HEMOGLOBIN 13.6 GM/dL (11.7-16.9); MCH 32.1 pg (25.7-33.7); MCHC 32.7 g/dl (32.0-35.9); MEAN PLT VOLUME 9.9 fl (7.5-11.1); PLATELET COUNT 221 K/MM3 (134-434); RBC 4.23 M/mm3 (4.00-5.60); RDW 13.6 % (11.9-15.9); WHITE BLOOD COUNT 25.4 K/mm3 (4.0-10.0)
[2017-08-18 07:56] LABS: ANION GAP 9 (8-16); BLOOD UREA NITROGEN 42 mg/dL (7-18); CALCIUM 8.3 mg/dL (8.5-10.1); CHLORIDE 105 mmol/L (98-107); CO2 24 mmol/L (21-32); CREATININE 1.3 mg/dL (0.7-1.3); GLUCOSE,RANDOM 175 mg/dL (74-106); POTASSIUM 4.6 mmol/L (3.5-5.1); SODIUM 138 mmol/L (136-145)
[2017-08-18] MEDS ORDERED: VANCOMYCIN 1 GRAM (PRE-DOCKED) 1,000 MG/250 ML BAG IVPB ONE (08:21)
[2017-08-18] MEDS ORDERED: ENOXAPARIN NA (PORCINE) 80 MG/0.8 ML DISP.SYRIN SQ ONE (08:21)
[2017-08-18] MEDS ORDERED: DIGOXIN 0.25 MG TABLET (FP) ONE (08:21)
[2017-08-18] MEDS ORDERED: PIPERACILLIN/TAZOB 3.375 GM 3.375 GM in DEXTROSE 5%-WATER - 100 ML IVPB ONE (09:00)
--- NOTE | 2017-08-18 09:03 | CON.ID ---
Consult Consult Specialty:: infectious disease Referred by:: hospitalist Reason for Consultation:: pneumonia - History of Present Illness Chief Complaint: hypoxia History of Present Illness: 89 year old man NHR brought from [facility] with hypoxia, he reports cough at [place] no chest pain, no abdominal pain required BIPAP in ED (still on bipap) oxygen sat in 80s at [facility] per admitting history found to be positive for influenza A wbc noted to be 18.5 lactic acid 6.9 bilateral infiltrates on cxray he received tamiflu/lasiix/vanco/zosyn in ED currently on bipai in ED he is awake and following commands - History Source History Provided By: Patient, Medical Record Limitations to Obtaining History: Clinical Condition - Past Medical History Cardio/Vascular: Yes: AFIB, CAD, HTN, Hyperlipdemia Heme/Onc: Yes: Other (eyelid cancer) Endocrine: Yes: Diabetes Mellitus Additional Medical History: cataracts, overactive bladder - Past Surgical History Past Surgical History: Yes: Cholecystectomy, Permanent Pacemaker Additional Surgical History: right carpal tunnel surgery - Alcohol/Substance Use Hx Alcohol Use: Yes (SOCIALLY) - Smoking History Smoking history: Former smoker Have you smoked in the past 12 months: No Aproximately how many cigarettes per day: 20 If you are a former smoker, when did you quit?: 1987 - Social History Usual Living Arrangement: [facility] History of Recent Travel: No Home Medications - Allergies Allergies/Adverse Reactions: Allergies Allergy/AdvReac Type Severity Reaction Status Date / Time dabigatran etexilate mesylate Allergy Intermediate GUM Verified 08/17/17 22:06 [From Pradaxa] BLEEDING - Home Medications Home Medications: Ambulatory Orders Aspirin [Aspirin EC] 81 mg PO DAILY 03/26/15 Atenolol [Tenormin -] 25 mg PO DAILY 03/26/15 Atorvastatin Ca [Lipitor] 40 mg PO DAILY 03/26/15 Digoxin [Lanoxin -] 0.25 mg PO DAILY 03/26/15 Insulin Glargine,Hum.rec.anlog [Lantus Solostar PEN -] 60 units SQ HS 03/26/15 Sitagliptin Phosphate [Januvia] 100 mg PO DAILY 03/26/15 Warfarin Sodium [Coumadin] 5 mg PO DAILY #0 03/26/15 metFORMIN HCL [Glucophage] 1,000 mg PO BID 03/26/15 Brimonidine Tartrate [Alphagan P 0.1% -] 1 drop BID 08/18/17 Family Disease History - Family Disease History Family History: Unable to Obtain Review of Systems - Review of Systems Cardiovascular: denies: Chest Pain Respiratory: reports: Cough, SOB Gastrointestinal: reports: No Symptoms. denies: Abdominal Pain Genitourinary: reports: No Symptoms Physical Exam Vital Signs: Vital Signs Temperature 99.1 F 08/18/17 06:30 Pulse Rate 74 08/18/17 06:30 Respiratory Rate 29 H 08/18/17 06:30 Blood Pressure 121/53 08/18/17 06:30 O2 Sat by Pulse Oximetry (%) 100 08/18/17 06:30 Constitutional: Yes: Well Nourished, No Distress, Other (on bipap) Eyes: Yes: WNL, Conjunctiva Clear HENT: Yes: Atraumatic, Normocephalic Neck: Yes: Supple Cardiovascular: Yes: Regular Rate and Rhythm Respiratory: Yes: Regular, CTA Bilaterally, Diminished (at bases) Gastrointestinal: Yes: Normal Bowel Sounds, Soft. No: Tenderness, Epigastrium ...Rectal Exam: Yes: Deferred Edema: No Psychiatric: Yes: Alert, Oriented Labs: CBC, BMP 08/18/17 06:32 08/18/17 06:32 influenza A positive Microbiology 08/17/17 23:30 Nasopharyngeal Swab Influenza Types A,B Antigen (VADIM) - Final 08/17/17 23:30 Nasopharyngeal Swab - Final UA negative blood cultures pending Imaging - Results Chest X-ray: Report Reviewed, Image Reviewed Problem List - Problems (1) Influenza A Code(s): J10.1 - FLU DUE TO OTH IDENT INFLUENZA VIRUS W OTH RESP MANIFEST (2) Respiratory failure with hypoxia Code(s): J96.91 - RESPIRATORY FAILURE, UNSPECIFIED WITH HYPOXIA (3) Pneumonia Code(s): J18.9 - PNEUMONIA, UNSPECIFIED ORGANISM Assessment/Plan influenza A with possible HCAP-elevated lact ic acid he has a rising WBC which is concerning and not ususally seen with influenza alone overall hemodynamics and oxygenation have improved overnight would continue tamiflu would continue bs antibiotics to cover HCAP as he is from [place] history of PPM/CAD positive troponins- not unusual to see in the setting of infection, especially influenza repeat cxray
[2017-08-18] MEDS: INSULIN SLIDING SCALE (NOVOLOG) 1 VIAL SQ SCH ×4 (09:15→22:40)
[2017-08-18 09:27] LABS: PLATELET ESTIMATE ADEQUATE
[2017-08-18] MEDS ORDERED: PIPERACILLIN/TAZOB 3.375 GM/50 ML PRE-DOCKED IVPB SCH (09:30)
--- NOTE | 2017-08-18 09:52 | EKG ---
Test Reason : Blood Pressure : / mmHG Vent. Rate : 081 BPM Atrial Rate : 105 BPM P-R Int : 000 ms QRS Dur : 146 ms QT Int : 370 ms P-R-T Axes : 000 005 196 degrees QTc Int : 429 ms ATRIAL FIBRILLATION LEFT BUNDLE BRANCH BLOCK ABNORMAL ECG NO PREVIOUS ECGS AVAILABLE Confirmed by TWILA MIRELES, RADHA ([id number]) on 08/18/2017 9:51:39 AM Referred By: Confirmed By:RADHA MATTSON MD
[2017-08-18] MEDS ORDERED: VANCOMYCIN 1,000 MG in DEXTROSE 5%-WATER - 250 ML IVPB SCH (10:00)
[2017-08-18] MEDS ORDERED: VANCOMYCIN 1 GRAM (PRE-DOCKED) 1,000 MG/250 ML BAG IVPB SCH (10:00)
[2017-08-18] MEDS: DIGOXIN 0.25 MG TABLET (FP) PO SCH (10:04)
[2017-08-18] MEDS: ENOXAPARIN NA (PORCINE) 80 MG/0.8 ML DISP.SYRIN SQ SCH ×2 (10:04→23:00)
[2017-08-18] MEDS: ASPIRIN COATED 81 MG TABLET.EC PO SCH (10:29)
--- NOTE | 2017-08-18 12:02 | CON.CARD ---
Cardiology Consult (text) - Consultation Consultation Note: cc: [place] distress hpi: 89 m hx dementia, ppm, afib, hld, dm, htn, sent [place] resp distress. Hx from chart pt with dementia. In ER treated for pna, flu, chf. Remains on bipap, appears comfortable. pmh: per hpi psh: ppm, cholecystectomy social: ex tob fam: unknown ros: unable to obtain 2/2 dementia meds: Home Medications Medication Instructions Recorded Aspirin [Aspirin EC] 81 mg PO DAILY 03/26/15 Atenolol [Tenormin -] 25 mg PO DAILY 03/26/15 Atorvastatin Ca [Lipitor] 40 mg PO DAILY 03/26/15 Digoxin [Lanoxin -] 0.25 mg PO DAILY 03/26/15 Insulin Glargine,Hum.rec.anlog 60 units SQ HS 03/26/15 [Lantus Solostar PEN -] Sitagliptin Phosphate [Januvia] 100 mg PO DAILY 03/26/15 Warfarin Sodium [Coumadin] 5 mg PO DAILY #0 03/26/15 metFORMIN HCL [Glucophage] 1,000 mg PO BID 03/26/15 Brimonidine Tartrate [Alphagan P 1 drop BID 08/18/17 0.1% -] pe: Vital Signs Period Temp Pulse Resp BP Sys/Hernandez Pulse Ox Last 24 Hr 99.1 F 69-77 28-38 121-172/53-76 65-100 nad no jvd irreg, s1s2 no mrg scattered rhonchi, on bipap no le e/c/c abd nt nd pos bs no jaundice diaphoresis pos dp pt awake alert confused Laboratory Last Values WBC 25.4 K/mm3 (4.0-10.0) H D 08/18/17 06:32 RBC 4.23 M/mm3 (4.00-5.60) 08/18/17 06:32 Hgb 13.6 GM/dL (11.7-16.9) 08/18/17 06:32 Hct 41.5 % (35.4-49) 08/18/17 06:32 MCV 98.0 fl (80-96) H 08/18/17 06:32 MCH 32.1 pg (25.7-33.7) 08/18/17 06:32 MCHC 32.7 g/dl (32.0-35.9) 08/18/17 06:32 RDW 13.6 % (11.9-15.9) 08/18/17 06:32 Plt Count 221 K/MM3 (134-434) D 08/18/17 06:32 MPV 9.9 fl (7.5-11.1) 08/18/17 06:32 Total Counted 100 08/18/17 06:32 Neutrophils % No Result Required. 08/18/17 06:32 Neutrophils % (Manual) 92.0 % (42.8-82.8) H* 08/18/17 06:32 Band Neutrophils % 3.0 % 08/18/17 06:32 Lymphocytes % No Result Required. 08/18/17 06:32 Monocytes % 8.4 % (3.8-10.2) 08/17/17 22:00 Monocytes % (Manual) 5 % (3.8-10.2) 08/18/17 06:32 Eosinophils % 1.6 % (0-4.5) 08/17/17 22:00 Basophils % 1.0 % (0-2.0) 08/17/17 22:00 Platelet Estimate Adequate 08/18/17 06:32 PT with INR 16.70 SEC (9.98-11.88) H 08/17/17 22:00 INR 1.48 (0.82-1.09) H 08/17/17 22:00 Anticoagulation Therapy No Result Required. 08/17/17 23:27 Puncture Site Right radial 08/18/17 06:00 ABG pH 7.47 (7.35-7.45) H 08/18/17 06:00 ABG pCO2 at Pt Temp 30.6 mmHg (35-45) L 08/18/17 06:00 ABG pO2 at Pt Temp 90.8 mmHg (68-100) D 08/18/17 06:00 ABG HCO3 21.7 meq/L (22-26) L 08/18/17 06:00 ABG O2 Sat (Measured) 97.7 % (90-98.9) 08/18/17 06:00 ABG O2 Content 18.3 % vol (15-22) 08/18/17 06:00 ABG Base Excess -0.7 meq/l (-2-2) 02/07/18 06:00 Toni Test Positive 08/18/17 06:00 Carboxyhemoglobin 1.2 gm% (0.5-2.0) 08/17/17 23:27 Methemoglobin 0.8 % (0.4-1.5) 08/17/17 23:27 O2 Delivery Device Bipap 08/18/17 06:00 Oxygen Flow Rate 60 08/18/17 06:00 Vent Mode S/t 08/18/17 06:00 Vent Rate 16 08/18/17 06:00 Mechanical Rate No Result Required. 08/17/17 23:27 Pressure Support Vent 14/7 08/18/17 06:00 Sodium 138 mmol/L (136-145) 08/18/17 06:32 Potassium 4.6 mmol/L (3.5-5.1) D 08/18/17 06:32 Chloride 105 mmol/L (98-107) 08/18/17 06:32 Carbon Dioxide 24 mmol/L (21-32) 08/18/17 06:32 Anion Gap 9 (8-16) 08/18/17 06:32 BUN 42 mg/dL (7-18) H 08/18/17 06:32 Creatinine 1.3 mg/dL (0.7-1.3) 08/18/17 06:32 Creat Clearance w eGFR 44.07 (>60) 08/17/17 22:00 Random Glucose 175 mg/dL (74-106) H D 08/18/17 06:32 Hemoglobin A1c % 6.6 % (4.8-6.0) H 08/18/17 08:55 Lactic Acid 1.9 mmol/L (0.0-2.0) 08/18/17 09:15 Calcium 8.3 mg/dL (8.5-10.1) L 08/18/17 06:32 Magnesium 2.1 mg/dL (1.8-2.4) 08/17/17 22:00 Total Bilirubin 0.5 mg/dL (0.2-1.0) 08/17/17 22:00 AST 50 U/L (15-37) H 08/17/17 22:00 ALT 25 U/L (12-78) 08/17/17 22:00 Alkaline Phosphatase 110 U/L (45-117) 08/17/17 22:00 Creatine Kinase 45 IU/L (39-308) 08/17/17 22:00 Troponin I 0.61 ng/ml (0.00-0.05) H* D 08/18/17 06:32 B-Natriuretic Peptide 4683.30 pg/ml (5-450) H 08/17/17 22:00 Total Protein 7.2 g/dl (6.4-8.2) 08/17/17 22:00 Albumin 3.4 g/dl (3.4-5.0) 08/17/17 22:00 Urine Color Ltyellow 08/17/17 23:30 Urine Appearance Clear 08/17/17 23:30 Urine pH 5.0 (5.0-8.0) 08/17/17 23:30 Ur Specific [place] 1.009 (1.001-1.035) 08/17/17 23:30 Urine Protein Negative (NEGATIVE) 08/17/17 23:30 Urine Glucose (UA) Negative (NEGATIVE) 08/17/17 23:30 Urine Ketones Negative (NEGATIVE) 08/17/17 23:30 Urine Blood Negative (NEGATIVE) 08/17/17 23:30 Urine Nitrite Negative (NEGATIVE) 08/17/17 23:30 Urine Bilirubin Negative (NEGATIVE) 08/17/17 23:30 Urine Urobilinogen Negative mg/dL (0.2-1.0) 08/17/17 23:30 Ur Leukocyte Esterase Trace (NEGATIVE) 08/17/17 23:30 Urine WBC (Auto) 1 /hpf (3-5) 08/17/17 23:30 Urine RBC (Auto) <1 /hpf (0-3) 08/17/17 23:30 Ur Epithelial Cells Rare /HPF (FEW) 08/17/17 23:30 Urine Bacteria Rare /hpf (NONE SEEN) 08/17/17 23:30 Urine Mucus Rare 08/17/17 23:30 Ur Random Sodium 83 MMOL/L 08/18/17 07:32 Ur Random Potassium 41.9 MMOL/L 08/18/17 07:32 Ur Random Chloride 117 MMOL/L 08/18/17 07:32 cxr: ?left pna ecg: afib, rate controlled, lbbb (no old to compare) a/p: 89 m hx dementia, ppm, afib, hld, dm, htn, [place]. resp distress, pna, acute chf: -possibly multifactorial with infection and chf contributing -agree with abx -agree with trial of iv lasix (got dose yesterday and today, monitor response, cr) -check echo pos trops: -mild elevation, possibly demand ischemia -monitor trend for now -check echo -cont tele afib: -rate controlled -cont dig, check level -holding home atenolol, monitor bp -cont ac (on coumadin at [place]) ppm: -routine outpt monitoring hld: -cont statin htn: -low side, monitor off atenolol for now
[2017-08-18] MEDS: DEXTROSE 5%-0.45% SALINE 1,000 ML IV SCH (13:30)
[2017-08-18] MEDS: VANCOMYCIN 1,000 MG in DEXTROSE 5%-WATER - 250 ML IVPB SCH (14:25)
[2017-08-18] MEDS: PIPERACILLIN/TAZOB 3.375 GM 3.375 GM in DEXTROSE 5%-WATER - 100 ML IVPB SCH ×2 (17:32→18:10)
--- NOTE | 2017-08-18 17:42 | PN ---
Progress Note, Physician History of Present Illness: pulmonary alert,less dyspneic currently on nasal o2,-tachypnea. O2 sat 94%. pt positive for influenza A. - Current Medication List Current Medications: Active Medications Aspirin (Ecotrin -) 81 mg PO DAILY [facility] Last Admin: 08/18/17 10:29 Dose: 81 mg Atorvastatin Calcium (Lipitor -) 40 mg PO HS [facility] Digoxin (Lanoxin -) 0.25 mg PO DAILY [facility] Last Admin: 08/18/17 10:04 Dose: 0.25 mg Enoxaparin Sodium (Lovenox -) 70 mg SQ BID [facility] Last Admin: 08/18/17 10:04 Dose: 70 mg Dextrose/Sodium Chloride (D5-1/2ns -) 1,000 mls @ 83 mls/hr IV ASDIR [facility] Last Admin: 08/18/17 13:30 Dose: 83 mls/hr Piperacillin Sod/Tazobactam (Sod 3.375 gm/ Dextrose) 100 mls @ 200 mls/hr IVPB Q8H-IV [facility] Last Admin: 08/18/17 17:32 Dose: 200 mls/hr Vancomycin HCl 1,000 mg/ (Dextrose) 250 mls @ 166.667 mls/hr IVPB DAILY [facility] Last Admin: 08/18/17 14:25 Dose: Not Given Insulin Aspart (Novolog Vial Sliding Scale -) 1 vial SQ ACHS [facility] PRN Reason: Protocol Last Admin: 08/18/17 13:30 Dose: Not Given Oseltamivir Phosphate (Tamiflu -) 30 mg PO BID [facility] Stop: 08/23/17 01:29 Last Admin: 08/18/17 10:29 Dose: 30 mg - Objective Vital Signs: Vital Signs Temperature 99.1 F 08/18/17 06:30 Pulse Rate 63 08/18/17 13:33 Respiratory Rate 23 08/18/17 13:33 Blood Pressure 126/52 08/18/17 13:33 O2 Sat by Pulse Oximetry (%) 60 L 08/18/17 15:45 Constitutional: Yes: Well Nourished, Calm Eyes: Yes: WNL HENT: Yes: WNL Neck: Yes: WNL Cardiovascular: Yes: Pulse Irregular, S1, S2 Respiratory: Yes: Rales (BILATERAL RALES) Gastrointestinal: Yes: Normal Bowel Sounds, Soft Extremities: Yes: WNL Edema: No Labs: CBC, BMP 08/18/17 06:32 08/18/17 06:32 INR, PTT INR 1.48 (0.82-1.09) H 08/17/17 22:00 Laboratory Tests 08/17/17 08/18/17 22:00 06:00 ABG pH 7.47 H ABG pCO2 at Pt Temp 30.6 L ABG pO2 at Pt Temp 90.8 D ABG HCO3 21.7 L ABG O2 Sat (Measured) 97.7 Oxygen Flow Rate 60 Vent Rate 16 Pressure Support Vent 14/7 B-Natriuretic Peptide 4683.30 H Problem List - Problems (1) A-fib Code(s): I48.91 - UNSPECIFIED ATRIAL FIBRILLATION (2) Influenza A Code(s): J10.1 - FLU DUE TO OTH IDENT INFLUENZA VIRUS W OTH RESP MANIFEST (3) Pneumonia Code(s): J18.9 - PNEUMONIA, UNSPECIFIED ORGANISM (4) Pulmonary edema Code(s): J81.1 - CHRONIC PULMONARY EDEMA Qualifiers: Chronicity: acute Qualified Code(s): J81.0 - Acute pulmonary edema (5) Respiratory failure with hypoxia Code(s): J96.91 - RESPIRATORY FAILURE, UNSPECIFIED WITH HYPOXIA (6) Elevated troponin I level Code(s): R74.8 - ABNORMAL LEVELS OF OTHER SERUM ENZYMES (7) Acute hypoxemic respiratory failure Code(s): J96.01 - ACUTE RESPIRATORY FAILURE WITH HYPOXIA Assessment/Plan IMP ACUTE HYPOXEMIC RESPIRATORY FAILURE PNEUMONIA CHF INFLUENZA A AFIB ASHD +TROPONINS DM HTN DEMENTIA PLAN O2 NIPPV NEEDED ANTIBIOTICS PER ID CULTURES F/U CHEST X-RAY LASIX TREND TROPONINS DR ECHOLS
[2017-08-18] MEDS ORDERED: PNEUMOCOCCAL 23 VACCINE 0.5 ML VIAL IM ONE (19:56)
[2017-08-18] MEDS: ATORVASTATIN CA 40 MG TABLET (FP) PO SCH (23:05)
[2017-08-19] MEDS ORDERED: ATORVASTATIN CA 40 MG TABLET (FP) ONE (01:30)
[2017-08-19] MEDS ORDERED: ENOXAPARIN NA (PORCINE) 80 MG/0.8 ML DISP.SYRIN SQ ONE (01:30)
[2017-08-19] MEDS: PIPERACILLIN/TAZOB 3.375 GM 3.375 GM in DEXTROSE 5%-WATER - 100 ML IVPB SCH ×3 (02:43→18:45)
[2017-08-19] MEDS: INSULIN SLIDING SCALE (NOVOLOG) 1 VIAL SQ SCH ×4 (08:58→21:57)
[2017-08-19] MEDS: ASPIRIN COATED 81 MG TABLET.EC PO SCH (10:18)
[2017-08-19] MEDS: OSELTAMIVIR PHOSPHATE 30 MG CAPSULE PO SCH ×2 (10:18→23:18)
[2017-08-19] MEDS: ENOXAPARIN NA (PORCINE) 80 MG/0.8 ML DISP.SYRIN SQ SCH ×2 (10:19→21:57)
[2017-08-19] MEDS: DIGOXIN 0.25 MG TABLET (FP) PO SCH (10:20)
--- NOTE | 2017-08-19 10:34 | PN ---
Progress Note, Physician Chief Complaint: ID Still in ER awaiting bed No distress and denies SOB vancomycin zosyn day 1 along Oseltamavir - Current Medication List Current Medications: Active Medications Albuterol/Ipratropium (Duoneb -) 1 amp NEB Q4H PRN PRN Reason: SHORTNESS OF BREATH Aspirin (Ecotrin -) 81 mg PO DAILY [facility] Last Admin: 08/19/17 10:18 Dose: 81 mg Atorvastatin Calcium (Lipitor -) 40 mg PO HS [facility] Last Admin: 08/18/17 23:05 Dose: 40 mg Digoxin (Lanoxin -) 0.25 mg PO DAILY [facility] Last Admin: 08/19/17 10:20 Dose: 0.25 mg Enoxaparin Sodium (Lovenox -) 70 mg SQ BID [facility] Last Admin: 08/19/17 10:19 Dose: 70 mg Dextrose/Sodium Chloride (D5-1/2ns -) 1,000 mls @ 83 mls/hr IV ASDIR [facility] Last Admin: 08/18/17 13:30 Dose: 83 mls/hr Piperacillin Sod/Tazobactam (Sod 3.375 gm/ Dextrose) 100 mls @ 200 mls/hr IVPB Q8H-IV [facility] Last Admin: 08/19/17 02:43 Dose: 200 mls/hr Vancomycin HCl 1,000 mg/ (Dextrose) 250 mls @ 166.667 mls/hr IVPB DAILY [facility] Last Admin: 08/18/17 14:25 Dose: Not Given Insulin Aspart (Novolog Vial Sliding Scale -) 1 vial SQ ACHS [facility] PRN Reason: Protocol Last Admin: 08/19/17 08:58 Dose: 4 units Oseltamivir Phosphate (Tamiflu -) 30 mg PO BID [facility] Stop: 08/23/17 01:29 Last Admin: 08/19/17 10:18 Dose: 30 mg - Objective Vital Signs: Vital Signs Temperature 98.1 F 08/19/17 06:58 Pulse Rate 67 08/19/17 10:20 Respiratory Rate 16 08/19/17 07:22 Blood Pressure 134/52 08/19/17 07:22 O2 Sat by Pulse Oximetry (%) 95 08/19/17 07:22 Constitutional: Yes: No Distress HENT: Yes: WNL, Atraumatic Neck: Yes: WNL, Supple Cardiovascular: Yes: Regular Rate and Rhythm, S2. No: Murmur Respiratory: Yes: WNL, Regular, CTA Bilaterally, Rhonchi Gastrointestinal: Yes: WNL, Normal Bowel Sounds, Soft Edema: No Labs: CBC, BMP 08/18/17 06:32 08/18/17 06:32 INR, PTT INR 1.48 (0.82-1.09) H 08/17/17 22:00 Assessment/Plan Microbiology 08/18/17 07:32 Urine For Antigen Detection Legionella Antigen - Final 08/18/17 07:32 Urine For Antigen Detection Streptococcus pneumoniae Antigen (M - Final 08/17/17 23:30 Urine - Urine Montes Urine Culture - Final NO GROWTH OBTAINED 08/17/17 23:30 Nasopharyngeal Swab Influenza Types A,B Antigen (VADIM) - Final 08/17/17 23:30 Nasopharyngeal Swab - Final 08/17/17 22:00 Blood - Peripheral Venous Blood Culture - Preliminary NO GROWTH OBTAINED AFTER 24 HOURS, INCUBATION TO CONTINUE FOR 4 DAYS. 08/17/17 22:00 Blood - Peripheral Venous Blood Culture - Preliminary NO GROWTH OBTAINED AFTER 24 HOURS, INCUBATION TO CONTINUE FOR 4 DAYS. Laboratory Tests 08/17/17 08/17/17 08/18/17 22:00 22:00 06:32 WBC 18.5 H 25.4 H D Hgb 13.6 Hct 41.5 Plt Count 221 D BUN Creatinine Creat Clearance w eGFR 44.07 08/18/17 06:32 WBC Hgb Hct Plt Count BUN 42 H Creatinine 1.3 Creat Clearance w eGFR Assessment Influenza A Pneumonia Hypoxemia improved Atrial fibrillation Acute CHF Elevated TNI Leukomoid reaction Plan Continue bacterial coverage along with treatment of the Flu Megan MIRELES
[2017-08-19] MEDS: DEXTROSE 5%-0.45% SALINE 1,000 ML IV SCH ×3 (10:37→15:00)
[2017-08-19] MEDS: VANCOMYCIN 1,000 MG in DEXTROSE 5%-WATER - 250 ML IVPB SCH (13:39)
--- NOTE | 2017-08-19 14:30 | PN ---
Progress Note (short form) - Note Progress Note: PULMONARY Breathing better today. +nonproductive cough. No fevers recorded. Last Vital Signs Temp Pulse Resp BP Pulse Ox 99.5 F 61 20 123/44 94 L 08/19/17 12:28 08/19/17 12:28 08/19/17 12:28 08/19/17 12:28 08/19/17 13:26 Intake & Output 08/16/17 08/17/17 08/18/17 08/19/17 23:59 23:59 23:59 23:59 Intake Total 250 1282 Output Total 1700 500 Balance -1450 782 Weight 72.575 kg 70.307 kg Gen: mildly tachypneic at rest Heart: RRR Lung: scattered rhonchi Abd: soft, nontender Ext:no edema CBC, BMP 08/18/17 06:32 08/18/17 06:32 Active Medications Albuterol/Ipratropium (Duoneb -) 1 amp NEB Q4H PRN PRN Reason: SHORTNESS OF BREATH Aspirin (Ecotrin -) 81 mg PO DAILY [facility] Last Admin: 08/19/17 10:18 Dose: 81 mg Atorvastatin Calcium (Lipitor -) 40 mg PO HS [facility] Last Admin: 08/18/17 23:05 Dose: 40 mg Digoxin (Lanoxin -) 0.25 mg PO DAILY [facility] Last Admin: 08/19/17 10:20 Dose: 0.25 mg Enoxaparin Sodium (Lovenox -) 70 mg SQ BID [facility] Last Admin: 08/19/17 10:19 Dose: 70 mg Piperacillin Sod/Tazobactam (Sod 3.375 gm/ Dextrose) 100 mls @ 200 mls/hr IVPB Q8H-IV [facility] Last Admin: 08/19/17 10:37 Dose: 200 mls/hr Vancomycin HCl 1,000 mg/ (Dextrose) 250 mls @ 166.667 mls/hr IVPB DAILY [facility] Last Admin: 08/19/17 13:39 Dose: 166.667 mls/hr Dextrose/Sodium Chloride (D5-1/2ns -) 1,000 mls @ 60 mls/hr IV ASDIR [facility] Insulin Aspart (Novolog Vial Sliding Scale -) 1 vial SQ ACHS [facility] PRN Reason: Protocol Last Admin: 08/19/17 12:21 Dose: 2 units Oseltamivir Phosphate (Tamiflu -) 30 mg PO BID [facility] Stop: 08/23/17 01:29 Last Admin: 08/19/17 10:18 Dose: 30 mg Warfarin Sodium (Coumadin -) 5 mg PO DAILY@1800 [facility] A/P Acute Hypoxic Respiratory Failure Influenza A r/o Pneumonia Atrial Fibrillation CAD +Troponins likely Demand Ischemia HTN DM Dementia - antibiotics, tamiflu - f/u cultures - o2 to keep SpO2 >90% - rate control - continue anticoagulation - monitor CXR
[2017-08-19] MEDS: ALBUTEROL SO4 2.5/IPRATROPIUM 0.5 INH SOL 3 ML VIAL.NEB. NEB PRN (16:45)
[2017-08-19] MEDS ORDERED: ACETAMINOPHEN 325 MG TABLET (FP) PO ONE (17:00)
[2017-08-19] MEDS: WARFARIN NA 5 MG TABLET (UD) PO SCH (17:06)
--- NOTE | 2017-08-19 18:52 | PN ---
Progress Note, Physician Chief Complaint: Pt examined confused sister states that he is not himself per staff - Current Medication List Current Medications: Active Medications Albuterol/Ipratropium (Duoneb -) 1 amp NEB Q4H PRN PRN Reason: SHORTNESS OF BREATH Last Admin: 08/19/17 16:45 Dose: 1 amp Aspirin (Ecotrin -) 81 mg PO DAILY [facility] Last Admin: 08/19/17 10:18 Dose: 81 mg Atorvastatin Calcium (Lipitor -) 40 mg PO HS [facility] Last Admin: 08/18/17 23:05 Dose: 40 mg Digoxin (Lanoxin -) 0.25 mg PO DAILY [facility] Last Admin: 08/19/17 10:20 Dose: 0.25 mg Enoxaparin Sodium (Lovenox -) 70 mg SQ BID [facility] Last Admin: 08/19/17 10:19 Dose: 70 mg Piperacillin Sod/Tazobactam (Sod 3.375 gm/ Dextrose) 100 mls @ 200 mls/hr IVPB Q8H-IV [facility] Last Admin: 08/19/17 10:37 Dose: 200 mls/hr Vancomycin HCl 1,000 mg/ (Dextrose) 250 mls @ 166.667 mls/hr IVPB DAILY [facility] Last Admin: 08/19/17 13:39 Dose: 166.667 mls/hr Dextrose/Sodium Chloride (D5-1/2ns -) 1,000 mls @ 60 mls/hr IV ASDIR [facility] Last Admin: 08/19/17 15:00 Dose: 60 mls/hr Insulin Aspart (Novolog Vial Sliding Scale -) 1 vial SQ ACHS [facility] PRN Reason: Protocol Last Admin: 08/19/17 17:06 Dose: 2 units Oseltamivir Phosphate (Tamiflu -) 30 mg PO BID [facility] Stop: 08/23/17 01:29 Last Admin: 08/19/17 10:18 Dose: 30 mg Warfarin Sodium (Coumadin -) 5 mg PO DAILY@1800 [facility] Last Admin: 08/19/17 17:06 Dose: 5 mg - Objective Vital Signs: Vital Signs Temperature 98.8 F 08/19/17 18:14 Pulse Rate 61 08/19/17 13:45 Respiratory Rate 28 H 08/19/17 13:45 Blood Pressure 122/47 08/19/17 13:45 O2 Sat by Pulse Oximetry (%) 94 L 08/19/17 13:26 Constitutional: Yes: No Distress Cardiovascular: Yes: Regular Rate and Rhythm Respiratory: Yes: Diminished, Rhonchi Gastrointestinal: Yes: Normal Bowel Sounds, Soft. No: Abdomen, Obese, Tenderness Edema: No Labs: CBC, BMP 08/18/17 06:32 08/18/17 06:32 INR, PTT INR 1.48 (0.82-1.09) H 08/17/17 22:00 Problem List - Problems (1) A-fib Code(s): I48.91 - UNSPECIFIED ATRIAL FIBRILLATION (2) Acute hypoxemic respiratory failure Code(s): J96.01 - ACUTE RESPIRATORY FAILURE WITH HYPOXIA (3) Influenza A Code(s): J10.1 - FLU DUE TO OTH IDENT INFLUENZA VIRUS W OTH RESP MANIFEST (4) Pneumonia Code(s): J18.9 - PNEUMONIA, UNSPECIFIED ORGANISM (5) Pulmonary edema Code(s): J81.1 - CHRONIC PULMONARY EDEMA Qualifiers: Chronicity: acute Qualified Code(s): J81.0 - Acute pulmonary edema (6) Respiratory failure with hypoxia Code(s): J96.91 - RESPIRATORY FAILURE, UNSPECIFIED WITH HYPOXIA (7) Elevated troponin I level Code(s): R74.8 - ABNORMAL LEVELS OF OTHER SERUM ENZYMES Assessment/Plan PLAN droplet isolation On Iv antibiotics and Tamiflu supportive care Continue iv fluids-- has poor po intake may start supplements O2 Nebs elevated troponins-- trending down now-- demand ischemia
--- NOTE | 2017-08-19 20:10 | PN ---
Progress Note (short form) - Note Progress Note: cc: resp distress/flu S: off bipap. received both lasix and IVF yesterday. remains on iVF. states breathing better today, minimal cough. no cp, palps, dizziness. Current Medications Albuterol/Ipratropium (Duoneb -) 1 amp NEB Q4H PRN PRN Reason: SHORTNESS OF BREATH Last Admin: 08/19/17 16:45 Dose: 1 amp Aspirin (Ecotrin -) 81 mg PO DAILY [facility] Last Admin: 08/19/17 10:18 Dose: 81 mg Atorvastatin Calcium (Lipitor -) 40 mg PO HS [facility] Last Admin: 08/18/17 23:05 Dose: 40 mg Digoxin (Lanoxin -) 0.25 mg PO DAILY [facility] Last Admin: 08/19/17 10:20 Dose: 0.25 mg Enoxaparin Sodium (Lovenox -) 70 mg SQ BID [facility] Last Admin: 08/19/17 10:19 Dose: 70 mg Piperacillin Sod/Tazobactam (Sod 3.375 gm/ Dextrose) 100 mls @ 200 mls/hr IVPB Q8H-IV [facility] Last Admin: 08/19/17 18:45 Dose: 200 mls/hr Vancomycin HCl 1,000 mg/ (Dextrose) 250 mls @ 166.667 mls/hr IVPB DAILY [facility] Last Admin: 08/19/17 13:39 Dose: 166.667 mls/hr Dextrose/Sodium Chloride (D5-1/2ns -) 1,000 mls @ 60 mls/hr IV ASDIR [facility] Last Admin: 08/19/17 15:00 Dose: 60 mls/hr Insulin Aspart (Novolog Vial Sliding Scale -) 1 vial SQ ACHS [facility] PRN Reason: Protocol Last Admin: 08/19/17 17:06 Dose: 2 units Oseltamivir Phosphate (Tamiflu -) 30 mg PO BID [facility] Stop: 08/23/17 01:29 Last Admin: 08/19/17 10:18 Dose: 30 mg Warfarin Sodium (Coumadin -) 5 mg PO DAILY@1800 [facility] Last Admin: 08/19/17 17:06 Dose: 5 mg pe: Vital Signs - 24 hr 08/19/17 08/19/17 08/19/17 06:58 07:22 09:00 Temperature 98.1 F Pulse Rate Pulse Rate [ 69 65 Apical] Pulse Rate [ 16 L 16 L Left Apical] Respiratory 16 16 16 Rate Blood Pressure Blood Pressure 121/77 134/52 [Right Arm] O2 Sat by Pulse 98 95 93 L Oximetry (%) 08/19/17 08/19/17 08/19/17 10:20 12:28 13:26 Temperature 99.5 F Pulse Rate 67 61 Pulse Rate [ Apical] Pulse Rate [ Left Apical] Respiratory 20 Rate Blood Pressure 123/44 Blood Pressure [Right Arm] O2 Sat by Pulse 94 L Oximetry (%) 08/19/17 08/19/17 08/19/17 13:45 17:00 18:14 Temperature 99.7 F H 101.4 F H 98.8 F Pulse Rate 61 60 Pulse Rate [ Apical] Pulse Rate [ Left Apical] Respiratory 28 H 24 Rate Blood Pressure 122/47 132/60 Blood Pressure [Right Arm] O2 Sat by Pulse Oximetry (%) Intake & Output 08/17/17 08/18/17 08/19/17 08/20/17 07:59 07:59 07:59 07:59 Intake Total 250 1282 Output Total 400 1300 800 Balance -400 -1050 482 Weight 160 lb 0.002 oz 155 lb nad calm no jvd irreg, s1s2 no mrg scattered rhonchi, nl effort no le e/c/c abd nt nd pos bs no jaundice diaphoresis pos dp pt awake alert CBC, BMP 08/18/17 06:32 08/18/17 06:32 Laboratory Tests 08/17/17 08/17/17 08/18/17 22:00 22:00 06:00 INR 1.48 H ABG pH 7.47 H ABG pCO2 at Pt Temp 30.6 L ABG pO2 at Pt Temp 90.8 D ABG HCO3 21.7 L Troponin I 0.14 H 08/18/17 08/18/17 06:32 17:50 INR ABG pH ABG pCO2 at Pt Temp ABG pO2 at Pt Temp ABG HCO3 Troponin I 0.61 H* D 0.44 H cxr: ?left pna cxr 08/19: mild inc in congestive changes. increased bibasilar infiltrates. echo 08/2017: nl lv size/fn.. tds rwma. rv not well seen. vlaves not well seen , no gross pathology ecg: afib, rate controlled, lbbb (no old to compare) tele: intermittent v-pacing with intermittent [place] beats. underlying afib. a/p: 89 m hx dementia, ppm, afib, hld, dm, htn, sent from [place] for resp distress. resp distress, pna, acute chf: -possibly multifactorial with infection and chf contributing -agree with abx -unclear whether he needs diuresis or IVF since don't have accurate i/o's or weights and he received both iv lasix (60 on 08/17 and 40 on 08/18) as well as IVF. currently remains on maintenance fluids. cxr slightly worse today, but symptomatically improved agree so will con't current mgm't and defer lasix today and reassess tomorrow. - echo tds but no gross ab pos trops: -mild elevation, possibly demand ischemia - con't asa for now. con't statin -echo tds, but overall nl sys fn. -cont tele afib: -rate controlled -cont dig, check level -holding home atenolol, monitor bp, currently controlled. -cont ac (on coumadin). dosing per pmd. currently on lovenox bridge. ppm: -routine outpt monitoring hld: -cont statin htn: -initally on low side. atenolol held. stable for now off atenolol.
[2017-08-19] MEDS ORDERED: PT OWN MED DRAWER 7, Y5N ONE (21:51)
[2017-08-19] MEDS: ATORVASTATIN CA 40 MG TABLET (FP) PO SCH (21:58)
[2017-08-20] MEDS ORDERED: PT OWN MED DRAWER 7, Y5N ONE ×6 (01:09→22:55)
[2017-08-20] MEDS: PIPERACILLIN/TAZOB 3.375 GM 3.375 GM in DEXTROSE 5%-WATER - 100 ML IVPB SCH ×3 (01:20→17:42)
[2017-08-20] MEDS ORDERED: ACETAMINOPHEN 325 MG TABLET (FP) PO PRN (06:02)
[2017-08-20] MEDS: INSULIN SLIDING SCALE (NOVOLOG) 1 VIAL SQ SCH ×4 (06:55→21:48)
[2017-08-20 07:26] LABS: HEMOGLOBIN 10.8 GM/dL (11.7-16.9); MCH 33.1 pg (25.7-33.7); MCHC 33.8 g/dl (32.0-35.9); MEAN CELL VOLUME 97.9 fl (80-96); MEAN PLT VOLUME 9.6 fl (7.5-11.1); PLATELET COUNT 157 K/MM3 (134-434); RBC 3.27 M/mm3 (4.00-5.60); RDW 13.6 % (11.9-15.9); WHITE BLOOD COUNT 8.9 K/mm3 (4.0-10.0)
[2017-08-20 07:38] LABS: INR 1.73 (0.82-1.09); PROTHROMBIN TIME (PATIENT) 19.5 SEC (9.98-11.88)
[2017-08-20 07:57] LABS: CHLORIDE 102 mmol/L (98-107); SODIUM 138 mmol/L (136-145)
[2017-08-20 08:05] LABS: ALBUMIN 2.5 g/dl (3.4-5.0); ALK PHOS 59 U/L (45-117); ANION GAP 9 (8-16); BILIRUBIN,TOTAL 1.2 mg/dL (0.2-1.0); BLOOD UREA NITROGEN 35 mg/dL (7-18); CALCIUM 7.7 mg/dL (8.5-10.1); CO2 27 mmol/L (21-32); GLUCOSE,RANDOM 193 mg/dL (74-106); SGOT/AST 42 U/L (15-37); SGPT/ALT 17 U/L (12-78); TOT PROT 5.4 g/dl (6.4-8.2)
[2017-08-20] MEDS: DEXTROSE 5%-0.45% SALINE 1,000 ML IV SCH ×2 (10:16→17:27)
[2017-08-20] MEDS: ASPIRIN COATED 81 MG TABLET.EC PO SCH (10:17)
[2017-08-20] MEDS: DIGOXIN 0.25 MG TABLET (FP) PO SCH (10:18)
[2017-08-20] MEDS: ENOXAPARIN NA (PORCINE) 80 MG/0.8 ML DISP.SYRIN SQ SCH ×2 (10:18→21:48)
[2017-08-20] MEDS: OSELTAMIVIR PHOSPHATE 30 MG CAPSULE PO SCH ×2 (10:19→21:48)
[2017-08-20] MEDS: VANCOMYCIN 1,000 MG in DEXTROSE 5%-WATER - 250 ML IVPB SCH (10:19)
--- NOTE | 2017-08-20 10:42 | PN ---
Progress Note (short form) - Note Progress Note: awake and alert no complaints some blood tinged sputum this am no chest pain or abdominal pain less cough Vital Signs Period Temp Pulse Resp BP Sys/Hernandez Pulse Ox Last 24 Hr 98.8 F-101.4 F 60-76 20-28 122-132/44-60 93-94 cor-rrr lungs decreased bs at bases abd soft,nt ext no edema CBC, BMP 08/20/17 07:14 08/20/17 07:14 Microbiology 08/17/17 22:00 Blood - Peripheral Venous Blood Culture - Preliminary NO GROWTH OBTAINED AFTER 48 HOURS, INCUBATION TO CONTINUE FOR 3 DAYS. 08/17/17 22:00 Blood - Peripheral Venous Blood Culture - Preliminary NO GROWTH OBTAINED AFTER 48 HOURS, INCUBATION TO CONTINUE FOR 3 DAYS. 08/17/17 23:30 Urine - Urine Montes Urine Culture - Final NO GROWTH OBTAINED 08/18/17 07:32 Urine For Antigen Detection Legionella Antigen - Final 08/18/17 07:32 Urine For Antigen Detection Streptococcus pneumoniae Antigen (M - Final 08/17/17 23:30 Nasopharyngeal Swab Influenza Types A,B Antigen (VADIM) - Final 08/17/17 23:30 Nasopharyngeal Swab - Final Current Medications Acetaminophen (Tylenol -) 650 mg PO Q6H PRN PRN Reason: FEVER Last Admin: 08/20/17 06:55 Dose: 650 mg Albuterol/Ipratropium (Duoneb -) 1 amp NEB Q4H PRN PRN Reason: SHORTNESS OF BREATH Last Admin: 08/19/17 16:45 Dose: 1 amp Aspirin (Ecotrin -) 81 mg PO DAILY [facility] Last Admin: 08/20/17 10:17 Dose: 81 mg Atorvastatin Calcium (Lipitor -) 40 mg PO HS [facility] Last Admin: 08/19/17 21:58 Dose: 40 mg Digoxin (Lanoxin -) 0.25 mg PO DAILY [facility] Last Admin: 08/20/17 10:18 Dose: 0.25 mg Enoxaparin Sodium (Lovenox -) 70 mg SQ BID [facility] Last Admin: 08/20/17 10:18 Dose: 70 mg Piperacillin Sod/Tazobactam (Sod 3.375 gm/ Dextrose) 100 mls @ 200 mls/hr IVPB Q8H-IV [facility] Last Admin: 08/20/17 10:20 Dose: 200 mls/hr Vancomycin HCl 1,000 mg/ (Dextrose) 250 mls @ 166.667 mls/hr IVPB DAILY [facility] Last Admin: 08/20/17 10:19 Dose: 166.667 mls/hr Dextrose/Sodium Chloride (D5-1/2ns -) 1,000 mls @ 60 mls/hr IV ASDIR [facility] Last Admin: 08/20/17 10:16 Dose: 60 mls/hr Insulin Aspart (Novolog Vial Sliding Scale -) 1 vial SQ ACHS [facility] PRN Reason: Protocol Last Admin: 08/20/17 06:55 Dose: 2 units Oseltamivir Phosphate (Tamiflu -) 30 mg PO BID [facility] Stop: 08/23/17 01:29 Last Admin: 08/20/17 10:19 Dose: 30 mg Warfarin Sodium (Coumadin -) 5 mg PO DAILY@1800 [facility] Last Admin: 08/19/17 17:06 Dose: 5 mg cxray ?RML infiltrate a/p Influenza A HCAP ?CHF send sputum culture clinically improved continue tamiflu/zosyn/vancomycin leukocytosis resolved Problem List - Problems (1) Influenza A Code(s): J10.1 - FLU DUE TO OTH IDENT INFLUENZA VIRUS W OTH RESP MANIFEST (2) Respiratory failure with hypoxia Code(s): J96.91 - RESPIRATORY FAILURE, UNSPECIFIED WITH HYPOXIA (3) Pneumonia Code(s): J18.9 - PNEUMONIA, UNSPECIFIED ORGANISM
--- NOTE | 2017-08-20 10:56 | PN ---
Progress Note (short form) - Note Progress Note: cc: resp distress/flu S: off bipap. states breathing better today, minimal cough. no cp, palps, dizziness. Current Medications Generic Name Dose Route Start Last Admin Trade Name Freq PRN Reason Stop Dose Admin Acetaminophen 650 mg 08/20/17 06:02 08/20/17 06:55 Tylenol - PO 650 mg Q6H PRN Administration FEVER Albuterol/Ipratropium 1 amp 08/18/17 17:47 08/19/17 16:45 Duoneb - NEB 1 amp Q4H PRN Administration SHORTNESS OF BREATH Aspirin 81 mg 08/18/17 10:00 08/20/17 10:17 Ecotrin - PO 81 mg DAILY [facility] Administration Atorvastatin Calcium 40 mg 08/18/17 22:00 08/19/17 21:58 Lipitor - PO 40 mg HS [facility] Administration Digoxin 0.25 mg 08/18/17 10:00 08/20/17 10:18 Lanoxin - PO 0.25 mg DAILY [facility] Administration Enoxaparin Sodium 70 mg 08/18/17 10:00 08/20/17 10:18 Lovenox - SQ 70 mg BID [facility] Administration Piperacillin Sod/Tazobactam 100 mls @ 200 mls/hr 08/18/17 14:00 08/20/17 10: 20 Sod 3.375 gm/ Dextrose IVPB 200 mls/hr Q8H-IV [facility] Administration Vancomycin HCl 1,000 mg/ 250 mls @ 166.667 mls/hr 08/18/17 14:15 08/20/17 10: 19 Dextrose IVPB 166.667 mls/hr DAILY [facility] Administration Dextrose/Sodium Chloride 1,000 mls @ 60 mls/hr 08/19/17 14:07 08/20/17 10:16 D5-1/2ns - IV 60 mls/hr ASDIR [facility] Administration Insulin Aspart 1 vial 08/18/17 07:00 08/20/17 06:55 Novolog Vial Sliding Scale - SQ 2 units ACHS [facility] Administration Protocol Oseltamivir Phosphate 30 mg 08/18/17 01:30 08/20/17 10:19 Tamiflu - PO 08/23/17 01:29 30 mg BID [facility] Administration Warfarin Sodium 5 mg 08/19/17 18:00 08/19/17 17:06 Coumadin - PO 5 mg DAILY@1800 [facility] Administration pe: Vital Signs Period Temp Pulse Resp BP Sys/Hernandez Pulse Ox Last 24 Hr 98.8 F-101.4 F 60-76 20-28 122-132/44-60 93-94 nad calm no jvd irreg, s1s2 no mrg scattered rhonchi, nl effort no le e/c/c abd nt nd pos bs no jaundice diaphoresis pos dp pt awake alert CBC, BMP 08/20/17 07:14 08/20/17 07:14 echo 08/2017: nl lv size/fn.. tds rwma. rv not well seen. vlaves not well seen , no gross pathology ecg: afib, rate controlled, lbbb (no old to compare) tele: intermittent v-pacing with intermittent [place] beats. underlying afib. a/p: 89 m hx dementia, ppm, afib, hld, dm, htn, sent from [facility] for resp distress. resp distress, pna, acute chf: -possibly multifactorial with infection and chf contributing -agree with abx -unclear whether he needs diuresis or IVF since don't have accurate i/o's or weights and he received both iv lasix (60 on 08/17 and 40 on 08/18) as well as IVF. symptomatically improved agree so will con't current mgm't and defer lasix for now. - echo tds but no gross ab pos trops: -mild elevation, flat trend, likely demand ischemia. no signs acs - con't asa for now. con't statin -echo tds, but overall nl sys fn. -cont tele afib: -rate controlled -cont dig, level ok -holding home atenolol, monitor bp, currently controlled. -cont ac (on coumadin) ppm: -routine outpt monitoring hld: -cont statin htn: -initally on low side. atenolol held. stable for now off atenolol.
--- NOTE | 2017-08-20 14:17 | PN ---
Progress Note, Physician History of Present Illness: pulmonary alert,feeling better,less congested - Current Medication List Current Medications: Active Medications Acetaminophen (Tylenol -) 650 mg PO Q6H PRN PRN Reason: FEVER Last Admin: 08/20/17 06:55 Dose: 650 mg Albuterol/Ipratropium (Duoneb -) 1 amp NEB Q4H PRN PRN Reason: SHORTNESS OF BREATH Last Admin: 08/19/17 16:45 Dose: 1 amp Aspirin (Ecotrin -) 81 mg PO DAILY [facility] Last Admin: 08/20/17 10:17 Dose: 81 mg Atorvastatin Calcium (Lipitor -) 40 mg PO HS [facility] Last Admin: 08/19/17 21:58 Dose: 40 mg Digoxin (Lanoxin -) 0.25 mg PO DAILY [facility] Last Admin: 08/20/17 10:18 Dose: 0.25 mg Enoxaparin Sodium (Lovenox -) 70 mg SQ BID [facility] Last Admin: 08/20/17 10:18 Dose: 70 mg Piperacillin Sod/Tazobactam (Sod 3.375 gm/ Dextrose) 100 mls @ 200 mls/hr IVPB Q8H-IV [facility] Last Admin: 08/20/17 10:20 Dose: 200 mls/hr Vancomycin HCl 1,000 mg/ (Dextrose) 250 mls @ 166.667 mls/hr IVPB DAILY [facility] Last Admin: 08/20/17 10:19 Dose: 166.667 mls/hr Dextrose/Sodium Chloride (D5-1/2ns -) 1,000 mls @ 60 mls/hr IV ASDIR [facility] Last Admin: 08/20/17 10:16 Dose: 60 mls/hr Insulin Aspart (Novolog Vial Sliding Scale -) 1 vial SQ ACHS [facility] PRN Reason: Protocol Last Admin: 08/20/17 11:53 Dose: 2 units Oseltamivir Phosphate (Tamiflu -) 30 mg PO BID [facility] Stop: 08/23/17 01:29 Last Admin: 08/20/17 10:19 Dose: 30 mg Warfarin Sodium (Coumadin -) 5 mg PO DAILY@1800 [facility] Last Admin: 08/19/17 17:06 Dose: 5 mg - Objective Vital Signs: Vital Signs Temperature 98.4 F 08/20/17 10:00 Pulse Rate 65 08/20/17 10:18 Respiratory Rate 20 08/20/17 10:00 Blood Pressure 115/55 08/20/17 10:00 O2 Sat by Pulse Oximetry (%) 96 08/20/17 09:00 Constitutional: Yes: Well Nourished, Calm Eyes: Yes: WNL HENT: Yes: WNL Neck: Yes: WNL Cardiovascular: Yes: Pulse Irregular, S1, S2 Respiratory: Yes: Rhonchi (scattered rhonchi) Gastrointestinal: Yes: Normal Bowel Sounds, Soft Extremities: Yes: WNL Edema: No Labs: CBC, BMP 08/20/17 07:14 08/20/17 07:14 INR, PTT INR 1.73 (0.82-1.09) H 08/20/17 07:14 Problem List - Problems (1) A-fib Code(s): I48.91 - UNSPECIFIED ATRIAL FIBRILLATION (2) Influenza A Code(s): J10.1 - FLU DUE TO OTH IDENT INFLUENZA VIRUS W OTH RESP MANIFEST (3) Pneumonia Code(s): J18.9 - PNEUMONIA, UNSPECIFIED ORGANISM (4) Pulmonary edema Code(s): J81.1 - CHRONIC PULMONARY EDEMA Qualifiers: Chronicity: acute Qualified Code(s): J81.0 - Acute pulmonary edema (5) Respiratory failure with hypoxia Code(s): J96.91 - RESPIRATORY FAILURE, UNSPECIFIED WITH HYPOXIA (6) Elevated troponin I level Code(s): R74.8 - ABNORMAL LEVELS OF OTHER SERUM ENZYMES (7) Acute hypoxemic respiratory failure Code(s): J96.01 - ACUTE RESPIRATORY FAILURE WITH HYPOXIA Assessment/Plan Problem List - Problems (1) A-fib Code(s): I48.91 - UNSPECIFIED ATRIAL FIBRILLATION (2) Influenza A Code(s): J10.1 - FLU DUE TO OTH IDENT INFLUENZA VIRUS W OTH RESP MANIFEST (3) Pneumonia Code(s): J18.9 - PNEUMONIA, UNSPECIFIED ORGANISM (4) Pulmonary edema Code(s): J81.1 - CHRONIC PULMONARY EDEMA Qualifiers: Chronicity: acute Qualified Code(s): J81.0 - Acute pulmonary edema (5) Respiratory failure with hypoxia Code(s): J96.91 - RESPIRATORY FAILURE, UNSPECIFIED WITH HYPOXIA (6) Elevated troponin I level Code(s): R74.8 - ABNORMAL LEVELS OF OTHER SERUM ENZYMES (7) Acute hypoxemic respiratory failure Code(s): J96.01 - ACUTE RESPIRATORY FAILURE WITH HYPOXIA Assessment/Plan IMP ACUTE HYPOXEMIC RESPIRATORY FAILURE PNEUMONIA CHF INFLUENZA A AFIB ASHD +TROPONINS DM HTN DEMENTIA PLAN O2 NIPPV NEEDED ANTIBIOTICS PER ID TAMIFLU F/U CHEST X-RAY LASIX TREND TROPONINS DR ECHOLS
[2017-08-20] MEDS: WARFARIN NA 5 MG TABLET (UD) PO SCH (17:42)
--- NOTE | 2017-08-20 18:26 | PN ---
Progress Note (short form) - Note Progress Note: pt seen/ examined . chart reviewed awake/ comfortable denies pain enganges in meaningful conversation Vital Signs Temp 98.6 F 08/20/17 15:50 Pulse 64 08/20/17 15:50 Resp 20 08/20/17 15:50 BP 125/61 08/20/17 15:50 Pulse Ox 96 08/20/17 09:00 Intake & Output 08/19/17 08/20/17 08/20/17 23:59 11:59 23:59 Intake Total 1010 1020 Output Total 550 200 500 Balance -550 810 520 Intake: IV 720 720 D5-1/2Ns - 1,000 ml @ 60 720 720 mls/hr IV ASDIR BHAVIN Rx#: [id number] IVPB 50 300 Oral 240 Output: Urine 550 200 500 Montes 550 200 500 Other: Voiding Method Indwelling Catheter Indwelling Catheter Indwelling Catheter # Unmeasured Voids Montes 0 Bowel Movement No No Active Medications Acetaminophen (Tylenol -) 650 mg PO Q6H PRN PRN Reason: FEVER Last Admin: 08/20/17 06:55 Dose: 650 mg Albuterol/Ipratropium (Duoneb -) 1 amp NEB Q4H PRN PRN Reason: SHORTNESS OF BREATH Last Admin: 08/19/17 16:45 Dose: 1 amp Aspirin (Ecotrin -) 81 mg PO DAILY [facility] Last Admin: 08/20/17 10:17 Dose: 81 mg Atorvastatin Calcium (Lipitor -) 40 mg PO HS [facility] Last Admin: 08/19/17 21:58 Dose: 40 mg Digoxin (Lanoxin -) 0.25 mg PO DAILY [facility] Last Admin: 08/20/17 10:18 Dose: 0.25 mg Enoxaparin Sodium (Lovenox -) 70 mg SQ BID [facility] Last Admin: 08/20/17 10:18 Dose: 70 mg Piperacillin Sod/Tazobactam (Sod 3.375 gm/ Dextrose) 100 mls @ 200 mls/hr IVPB Q8H-IV [facility] Last Admin: 08/20/17 17:42 Dose: 200 mls/hr Vancomycin HCl 1,000 mg/ (Dextrose) 250 mls @ 166.667 mls/hr IVPB DAILY [facility] Last Admin: 08/20/17 10:19 Dose: 166.667 mls/hr Dextrose/Sodium Chloride (D5-1/2ns -) 1,000 mls @ 60 mls/hr IV ASDIR [facility] Last Admin: 08/20/17 17:27 Dose: Not Given Insulin Aspart (Novolog Vial Sliding Scale -) 1 vial SQ ACHS [facility] PRN Reason: Protocol Last Admin: 08/20/17 17:42 Dose: 2 units Oseltamivir Phosphate (Tamiflu -) 30 mg PO BID [facility] Stop: 08/23/17 01:29 Last Admin: 08/20/17 10:19 Dose: 30 mg Warfarin Sodium (Coumadin -) 5 mg PO DAILY@1800 [facility] Last Admin: 08/20/17 17:42 Dose: 5 mg CBC, BMP 08/20/17 07:14 08/20/17 07:14 Microbiology 08/17/17 22:00 Blood Culture - Preliminary Blood - Peripheral Venous NO GROWTH OBTAINED AFTER 48 HOURS, INCUBATION TO CONTINUE FOR 3 DAYS. 08/17/17 22:00 Blood Culture - Preliminary Blood - Peripheral Venous NO GROWTH OBTAINED AFTER 48 HOURS, INCUBATION TO CONTINUE FOR 3 DAYS. - Objective Constitutional: Yes: No Distress. comfortable. Cardiovascular: Yes: Regular Rate and Rhythm Respiratory: Yes: Diminished at bases Gastrointestinal: Yes: Normal Bowel Sounds, Soft. No: Abdomen, Obese, Tenderness Edema: No Problem List - Problems (1) A-fib Code(s): I48.91 - UNSPECIFIED ATRIAL FIBRILLATION (2) Acute hypoxemic respiratory failure Code(s): J96.01 - ACUTE RESPIRATORY FAILURE WITH HYPOXIA (3) Influenza A Code(s): J10.1 - FLU DUE TO OTH IDENT INFLUENZA VIRUS W OTH RESP MANIFEST (4) Pneumonia Code(s): J18.9 - PNEUMONIA, UNSPECIFIED ORGANISM (5) Pulmonary edema Code(s): J81.1 - CHRONIC PULMONARY EDEMA Qualifiers: Chronicity: acute Qualified Code(s): J81.0 - Acute pulmonary edema (6) Respiratory failure with hypoxia Code(s): J96.91 - RESPIRATORY FAILURE, UNSPECIFIED WITH HYPOXIA (7) Elevated troponin I level Code(s): R74.8 - ABNORMAL LEVELS OF OTHER SERUM ENZYMES Assessment/Plan clinically better continue current management droplet precautions abx monitor inr discussed with nursing staff
[2017-08-20] MEDS ORDERED: INSULIN (NOVOLOG) ASPART 100 UNITS/ML 10ML VIAL ONE (21:36)
[2017-08-20] MEDS: ATORVASTATIN CA 40 MG TABLET (FP) PO SCH (21:48)
[2017-08-21] MEDS: PIPERACILLIN/TAZOB 3.375 GM 3.375 GM in DEXTROSE 5%-WATER - 100 ML IVPB SCH ×3 (01:53→17:06)
[2017-08-21] MEDS: DEXTROSE 5%-0.45% SALINE 1,000 ML IV SCH (01:54)
[2017-08-21] MEDS: INSULIN SLIDING SCALE (NOVOLOG) 1 VIAL SQ SCH ×4 (06:23→22:24)
[2017-08-21] MEDS ORDERED: PT OWN MED DRAWER 7, Y5N ONE ×4 (08:58→22:20)
[2017-08-21] MEDS: ASPIRIN COATED 81 MG TABLET.EC PO SCH (10:01)
[2017-08-21] MEDS: ENOXAPARIN NA (PORCINE) 80 MG/0.8 ML DISP.SYRIN SQ SCH (10:01)
[2017-08-21] MEDS: DIGOXIN 0.25 MG TABLET (FP) PO SCH (10:01)
[2017-08-21] MEDS: OSELTAMIVIR PHOSPHATE 30 MG CAPSULE PO SCH ×2 (10:01→22:24)
[2017-08-21] MEDS: VANCOMYCIN 1,000 MG in DEXTROSE 5%-WATER - 250 ML IVPB SCH (10:01)
[2017-08-21 10:49] LABS: INR 3.67 (0.82-1.09); PROTHROMBIN TIME (PATIENT) 41.5 SEC (9.98-11.88)
--- NOTE | 2017-08-21 11:19 | PN ---
Progress Note, Physician Chief Complaint: Pt examined mental status better more alert eating better per staff - Current Medication List Current Medications: Active Medications Acetaminophen (Tylenol -) 650 mg PO Q6H PRN PRN Reason: FEVER Last Admin: 08/20/17 06:55 Dose: 650 mg Albuterol/Ipratropium (Duoneb -) 1 amp NEB Q4H PRN PRN Reason: SHORTNESS OF BREATH Last Admin: 08/19/17 16:45 Dose: 1 amp Aspirin (Ecotrin -) 81 mg PO DAILY [facility] Last Admin: 08/21/17 10:01 Dose: 81 mg Atorvastatin Calcium (Lipitor -) 40 mg PO HS [facility] Last Admin: 08/20/17 21:48 Dose: 40 mg Digoxin (Lanoxin -) 0.25 mg PO DAILY [facility] Last Admin: 08/21/17 10:01 Dose: 0.25 mg Piperacillin Sod/Tazobactam (Sod 3.375 gm/ Dextrose) 100 mls @ 200 mls/hr IVPB Q8H-IV [facility] Last Admin: 08/21/17 10:02 Dose: 200 mls/hr Vancomycin HCl 1,000 mg/ (Dextrose) 250 mls @ 166.667 mls/hr IVPB DAILY [facility] [place] Last Admin: 08/21/17 10:01 Dose: 166.667 mls/hr Dextrose/Sodium Chloride (D5-1/2ns -) 1,000 mls @ 60 mls/hr IV ASDIR [facility] [place] Last Admin: 08/21/17 01:54 Dose: 60 mls/hr Insulin Aspart (Novolog Vial Sliding Scale -) 1 vial SQ ACHS [facility] [place] PRN Reason: Protocol Last Admin: 08/21/17 06:23 Dose: 2 units Oseltamivir Phosphate (Tamiflu -) 30 mg PO BID [facility] Stop: 08/23/17 01:29 Last Admin: 08/21/17 10:01 Dose: 30 mg - Objective Vital Signs: Vital Signs Temperature 98 F 08/21/17 06:00 Pulse Rate 64 08/21/17 10:01 Respiratory Rate 20 08/21/17 06:00 Blood Pressure 123/65 08/21/17 06:00 O2 Sat by Pulse Oximetry (%) 94 L 08/21/17 08:37 Constitutional: Yes: No Distress, Calm Cardiovascular: Yes: Pulse Irregular Respiratory: Yes: Diminished Gastrointestinal: Yes: Normal Bowel Sounds, Soft. No: Tenderness Edema: No Labs: CBC, BMP 08/20/17 07:14 08/20/17 07:14 INR, PTT INR 3.67 (0.82-1.09) H D 08/21/17 10:10 Problem List - Problems (1) A-fib Code(s): I48.91 - UNSPECIFIED ATRIAL FIBRILLATION Qualifiers: Atrial fibrillation type: permanent Qualified Code(s): I48.2 - Chronic atrial fibrillation (2) Acute hypoxemic respiratory failure Code(s): J96.01 - ACUTE RESPIRATORY FAILURE WITH HYPOXIA (3) Influenza A Code(s): J10.1 - FLU DUE TO OTH IDENT INFLUENZA VIRUS W OTH RESP MANIFEST (4) Pneumonia Code(s): J18.9 - PNEUMONIA, UNSPECIFIED ORGANISM (5) Pulmonary edema Code(s): J81.1 - CHRONIC PULMONARY EDEMA Qualifiers: Chronicity: acute Qualified Code(s): J81.0 - Acute pulmonary edema (6) Respiratory failure with hypoxia Code(s): J96.91 - RESPIRATORY FAILURE, UNSPECIFIED WITH HYPOXIA (7) Elevated troponin I level Code(s): R74.8 - ABNORMAL LEVELS OF OTHER SERUM ENZYMES Assessment/Plan PLAN droplet isolation On Iv antibiotics and Tamiflu supportive care dc iv fluids dc Lovenox and hold coumadin today-- INR elevated-- monitor may start supplements PT eval O2 Nebs elevated troponins-- trending down now-- demand ischemia
--- NOTE | 2017-08-21 11:49 | PN ---
Progress Note, Physician History of Present Illness: pulmonary alert,feeling better,dyspnea improving - Current Medication List Current Medications: Active Medications Acetaminophen (Tylenol -) 650 mg PO Q6H PRN PRN Reason: FEVER Last Admin: 08/20/17 06:55 Dose: 650 mg Albuterol/Ipratropium (Duoneb -) 1 amp NEB Q4H PRN PRN Reason: SHORTNESS OF BREATH Last Admin: 08/19/17 16:45 Dose: 1 amp Aspirin (Ecotrin -) 81 mg PO DAILY [facility] Last Admin: 08/21/17 10:01 Dose: 81 mg Atorvastatin Calcium (Lipitor -) 40 mg PO HS [facility] Last Admin: 08/20/17 21:48 Dose: 40 mg Digoxin (Lanoxin -) 0.25 mg PO DAILY [facility] Last Admin: 08/21/17 10:01 Dose: 0.25 mg Piperacillin Sod/Tazobactam (Sod 3.375 gm/ Dextrose) 100 mls @ 200 mls/hr IVPB Q8H-IV [facility] Last Admin: 08/21/17 10:02 Dose: 200 mls/hr Vancomycin HCl 1,000 mg/ (Dextrose) 250 mls @ 166.667 mls/hr IVPB DAILY [facility] Last Admin: 08/21/17 10:01 Dose: 166.667 mls/hr Insulin Aspart (Novolog Vial Sliding Scale -) 1 vial SQ ACHS [facility] PRN Reason: Protocol Last Admin: 08/21/17 06:23 Dose: 2 units Oseltamivir Phosphate (Tamiflu -) 30 mg PO BID [facility] Stop: 08/23/17 01:29 Last Admin: 08/21/17 10:01 Dose: 30 mg - Objective Vital Signs: Vital Signs Temperature 98 F 08/21/17 06:00 Pulse Rate 64 08/21/17 10:01 Respiratory Rate 20 08/21/17 06:00 Blood Pressure 123/65 08/21/17 06:00 O2 Sat by Pulse Oximetry (%) 94 L 08/21/17 08:37 Constitutional: Yes: Well Nourished, Calm Eyes: Yes: WNL HENT: Yes: WNL Neck: Yes: WNL Cardiovascular: Yes: Pulse Irregular, S1, S2 Respiratory: Yes: Rales (el crackles and scattered rhonchi) Gastrointestinal: Yes: Normal Bowel Sounds, Soft Extremities: Yes: WNL Edema: No Labs: CBC, BMP 08/20/17 07:14 08/20/17 07:14 INR, PTT INR 3.67 (0.82-1.09) H D 08/21/17 10:10 Problem List - Problems (1) A-fib Code(s): I48.91 - UNSPECIFIED ATRIAL FIBRILLATION (2) Influenza A Code(s): J10.1 - FLU DUE TO OTH IDENT INFLUENZA VIRUS W OTH RESP MANIFEST (3) Pneumonia Code(s): J18.9 - PNEUMONIA, UNSPECIFIED ORGANISM (4) Pulmonary edema Code(s): J81.1 - CHRONIC PULMONARY EDEMA Qualifiers: Chronicity: acute Qualified Code(s): J81.0 - Acute pulmonary edema (5) Respiratory failure with hypoxia Code(s): J96.91 - RESPIRATORY FAILURE, UNSPECIFIED WITH HYPOXIA (6) Elevated troponin I level Code(s): R74.8 - ABNORMAL LEVELS OF OTHER SERUM ENZYMES (7) Acute hypoxemic respiratory failure Code(s): J96.01 - ACUTE RESPIRATORY FAILURE WITH HYPOXIA Assessment/Plan Problem List - Problems (1) A-fib Code(s): I48.91 - UNSPECIFIED ATRIAL FIBRILLATION (2) Influenza A Code(s): J10.1 - FLU DUE TO OTH IDENT INFLUENZA VIRUS W OTH RESP MANIFEST (3) Pneumonia Code(s): J18.9 - PNEUMONIA, UNSPECIFIED ORGANISM (4) Pulmonary edema Code(s): J81.1 - CHRONIC PULMONARY EDEMA Qualifiers: Chronicity: acute Qualified Code(s): J81.0 - Acute pulmonary edema (5) Respiratory failure with hypoxia Code(s): J96.91 - RESPIRATORY FAILURE, UNSPECIFIED WITH HYPOXIA (6) Elevated troponin I level Code(s): R74.8 - ABNORMAL LEVELS OF OTHER SERUM ENZYMES (7) Acute hypoxemic respiratory failure Code(s): J96.01 - ACUTE RESPIRATORY FAILURE WITH HYPOXIA Assessment/Plan IMP ACUTE HYPOXEMIC RESPIRATORY FAILURE improving PNEUMONIA CHF INFLUENZA A AFIB ASHD +TROPONINS DM HTN DEMENTIA PLAN O2 NIPPV NEEDED ANTIBIOTICS PER ID TAMIFLU F/U CHEST X-RAY AM LASIX PER CARDIOLOGY AC DR ECHOLS
--- NOTE | 2017-08-21 16:06 | PN ---
Progress Note (short form) - Note Progress Note: cc: resp distress/flu S: states breathing better today, minimal cough. no cp, palps, dizziness. IVF stopped Current Medications Acetaminophen (Tylenol -) 650 mg PO Q6H PRN PRN Reason: FEVER Last Admin: 08/20/17 06:55 Dose: 650 mg Albuterol/Ipratropium (Duoneb -) 1 amp NEB Q4H PRN PRN Reason: SHORTNESS OF BREATH Last Admin: 08/19/17 16:45 Dose: 1 amp Aspirin (Ecotrin -) 81 mg PO DAILY [facility] Last Admin: 08/21/17 10:01 Dose: 81 mg Atorvastatin Calcium (Lipitor -) 40 mg PO HS [facility] Last Admin: 08/20/17 21:48 Dose: 40 mg Digoxin (Lanoxin -) 0.25 mg PO DAILY [facility] Last Admin: 08/21/17 10:01 Dose: 0.25 mg Piperacillin Sod/Tazobactam (Sod 3.375 gm/ Dextrose) 100 mls @ 200 mls/hr IVPB Q8H-IV [facility] Last Admin: 08/21/17 10:02 Dose: 200 mls/hr Vancomycin HCl 1,000 mg/ (Dextrose) 250 mls @ 166.667 mls/hr IVPB DAILY [facility] Last Admin: 08/21/17 10:01 Dose: 166.667 mls/hr Insulin Aspart (Novolog Vial Sliding Scale -) 1 vial SQ ACHS [facility] PRN Reason: Protocol Last Admin: 08/21/17 12:18 Dose: 2 units Oseltamivir Phosphate (Tamiflu -) 30 mg PO BID [facility] Stop: 08/23/17 01:29 Last Admin: 08/21/17 10:01 Dose: 30 mg pe: Vital Signs - 24 hr 08/20/17 08/20/17 08/20/17 18:30 22:00 22:27 Temperature 97.7 F 97.4 F L Pulse Rate 69 61 Respiratory 20 16 Rate Blood Pressure 134/55 123/56 O2 Sat by Pulse 97 Oximetry (%) 08/21/17 08/21/17 08/21/17 02:00 06:00 08:37 Temperature 98.8 F 98 F Pulse Rate 71 68 Respiratory 20 20 Rate Blood Pressure 129/64 123/65 O2 Sat by Pulse 94 L Oximetry (%) 08/21/17 08/21/17 08/21/17 10:00 10:01 13:30 Temperature 97.4 F L Pulse Rate 64 64 60 Respiratory 18 27 H Rate Blood Pressure 119/54 121/51 O2 Sat by Pulse 94 L Oximetry (%) Intake & Output 08/19/17 08/20/17 08/21/17 08/22/17 07:59 07:59 07:59 07:59 Intake Total 250 2292 2280 Output Total 1300 1250 1500 600 Balance -1050 1042 780 -600 Weight 155 lb 166 lb 9.6 oz nad calm no jvd irreg, s1s2 08/17 harsh sys murmur at lsb radiating to apex. scattered rhonchi, nl effort no le e/c/c abd nt nd pos bs no jaundice diaphoresis pos dp pt awake alert no CBC, BMP today 08/20/17 07:14 08/20/17 07:14 Laboratory Tests 08/21/17 10:10 INR 3.67 H D echo 08/2017: nl lv size/fn.. tds rwma. rv not well seen. vlaves not well seen , no gross pathology ecg: afib, rate controlled, lbbb (no old to compare) tele: intermittent v-pacing with intermittent [place] beats. underlying afib. a/p: 89 m hx dementia, ppm, afib, hld, dm, htn, [place] resp distress. resp distress, pna, vs acute chf: -possibly multifactorial with infection and chf contributing -agree with abx -unclear whether he needs diuresis or IVF since don't have accurate i/o's or weights and he received both iv lasix (60 on 08/17 and 40 on 08/18) as well as IVF. - has continued to symptomatically improved on IVF alone. Stopped yesterday, defer lasix for now. repeat cxr tomorrow - echo tds but no gross ab pos trops: -mild elevation, flat trend, likely demand ischemia. no signs acs - con't asa for now. con't statin -echo tds, but overall nl sys fn. -cont tele afib: -rate controlled -cont dig, level ok -holding home atenolol, monitor bp, currently controlled. -cont ac (on coumadin) ppm: -routine outpt monitoring hld: -cont statin htn: -initally on low side. atenolol held. stable for now off atenolol.
[2017-08-21] MEDS: ALBUTEROL SO4 2.5/IPRATROPIUM 0.5 INH SOL 3 ML VIAL.NEB. NEB PRN (20:25)
[2017-08-21] MEDS: ATORVASTATIN CA 40 MG TABLET (FP) PO SCH (22:24)
[2017-08-22] MEDS: PIPERACILLIN/TAZOB 3.375 GM 3.375 GM in DEXTROSE 5%-WATER - 100 ML IVPB SCH ×3 (02:19→17:22)
[2017-08-22] MEDS: INSULIN SLIDING SCALE (NOVOLOG) 1 VIAL SQ SCH ×4 (06:46→22:05)
[2017-08-22] MEDS ORDERED: INSULIN (NOVOLOG) ASPART 100 UNITS/ML 10ML VIAL ONE (07:00)
[2017-08-22 08:05] LABS: INR 3.45 (0.82-1.09)
[2017-08-22] MEDS: OSELTAMIVIR PHOSPHATE 30 MG CAPSULE PO SCH ×2 (10:03→22:02)
[2017-08-22] MEDS: DIGOXIN 0.25 MG TABLET (FP) PO SCH (10:03)
[2017-08-22] MEDS: ASPIRIN COATED 81 MG TABLET.EC PO SCH (10:03)
[2017-08-22] MEDS: VANCOMYCIN 1,000 MG in DEXTROSE 5%-WATER - 250 ML IVPB SCH (10:04)
--- NOTE | 2017-08-22 11:52 | PN ---
Progress Note, Physician Chief Complaint: Pt examined mental status better more alert eating better per staff had loose bm today x 1 - Current Medication List Current Medications: Active Medications Acetaminophen (Tylenol -) 650 mg PO Q6H PRN PRN Reason: FEVER Last Admin: 08/20/17 06:55 Dose: 650 mg Albuterol/Ipratropium (Duoneb -) 1 amp NEB Q4H PRN PRN Reason: SHORTNESS OF BREATH Last Admin: 08/21/17 20:25 Dose: 1 amp Aspirin (Ecotrin -) 81 mg PO DAILY [facility] Last Admin: 08/22/17 10:03 Dose: 81 mg Atorvastatin Calcium (Lipitor -) 40 mg PO HS [facility] Last Admin: 08/21/17 22:24 Dose: 40 mg Digoxin (Lanoxin -) 0.25 mg PO DAILY [facility] Last Admin: 08/22/17 10:03 Dose: 0.25 mg Piperacillin Sod/Tazobactam (Sod 3.375 gm/ Dextrose) 100 mls @ 200 mls/hr IVPB Q8H-IV [facility] Last Admin: 08/22/17 10:04 Dose: 200 mls/hr Vancomycin HCl 1,000 mg/ (Dextrose) 250 mls @ 166.667 mls/hr IVPB DAILY [facility] Last Admin: 08/22/17 10:04 Dose: 166.667 mls/hr Insulin Aspart (Novolog Vial Sliding Scale -) 1 vial SQ ACHS [facility] PRN Reason: Protocol Last Admin: 08/22/17 11:44 Dose: 6 units Oseltamivir Phosphate (Tamiflu -) 30 mg PO BID [facility] Stop: 08/23/17 01:29 Last Admin: 08/22/17 10:03 Dose: 30 mg - Objective Vital Signs: Vital Signs Temperature 97.5 F L 08/22/17 10:09 Pulse Rate 76 08/22/17 10:09 Respiratory Rate 20 08/22/17 10:09 Blood Pressure 140/60 08/22/17 10:09 O2 Sat by Pulse Oximetry (%) 93 L 08/22/17 09:20 Constitutional: Yes: No Distress Cardiovascular: Yes: Pulse Irregular Respiratory: Yes: Diminished Gastrointestinal: Yes: Normal Bowel Sounds, Soft. No: Tenderness Edema: No Labs: CBC, BMP 08/20/17 07:14 08/20/17 07:14 INR, PTT INR 3.45 (0.82-1.09) H 08/22/17 06:30 Problem List - Problems (1) A-fib Code(s): I48.91 - UNSPECIFIED ATRIAL FIBRILLATION Qualifiers: Atrial fibrillation type: permanent Qualified Code(s): I48.2 - Chronic atrial fibrillation (2) Acute hypoxemic respiratory failure Code(s): J96.01 - ACUTE RESPIRATORY FAILURE WITH HYPOXIA (3) Influenza A Code(s): J10.1 - FLU DUE TO OTH IDENT INFLUENZA VIRUS W OTH RESP MANIFEST (4) Pneumonia Code(s): J18.9 - PNEUMONIA, UNSPECIFIED ORGANISM (5) Pulmonary edema Code(s): J81.1 - CHRONIC PULMONARY EDEMA Qualifiers: Chronicity: acute Qualified Code(s): J81.0 - Acute pulmonary edema (6) Respiratory failure with hypoxia Code(s): J96.91 - RESPIRATORY FAILURE, UNSPECIFIED WITH HYPOXIA (7) Elevated troponin I level Code(s): R74.8 - ABNORMAL LEVELS OF OTHER SERUM ENZYMES Assessment/Plan PLAN droplet isolation On Iv antibiotics and Tamiflu supportive care dc iv fluids hold coumadin today-- INR elevated-- monitor PT eval O2 Nebs elevated troponins-- trending down now-- demand ischemia if any further loose bm, advised to send stool for cdiff
--- NOTE | 2017-08-22 12:17 | PN ---
Progress Note, Physician History of Present Illness: pulmonary alert,nad,-c/o sob,-cp - Current Medication List Current Medications: Active Medications Acetaminophen (Tylenol -) 650 mg PO Q6H PRN PRN Reason: FEVER Last Admin: 08/20/17 06:55 Dose: 650 mg Albuterol/Ipratropium (Duoneb -) 1 amp NEB Q4H PRN PRN Reason: SHORTNESS OF BREATH Last Admin: 08/21/17 20:25 Dose: 1 amp Aspirin (Ecotrin -) 81 mg PO DAILY [facility] Last Admin: 08/22/17 10:03 Dose: 81 mg Atorvastatin Calcium (Lipitor -) 40 mg PO HS [facility] Last Admin: 08/21/17 22:24 Dose: 40 mg Digoxin (Lanoxin -) 0.25 mg PO DAILY [facility] Last Admin: 08/22/17 10:03 Dose: 0.25 mg Piperacillin Sod/Tazobactam (Sod 3.375 gm/ Dextrose) 100 mls @ 200 mls/hr IVPB Q8H-IV [facility] Last Admin: 08/22/17 10:04 Dose: 200 mls/hr Vancomycin HCl 1,000 mg/ (Dextrose) 250 mls @ 166.667 mls/hr IVPB DAILY [facility] Last Admin: 08/22/17 10:04 Dose: 166.667 mls/hr Insulin Aspart (Novolog Vial Sliding Scale -) 1 vial SQ ACHS [facility] PRN Reason: Protocol Last Admin: 08/22/17 11:44 Dose: 6 units Oseltamivir Phosphate (Tamiflu -) 30 mg PO BID [facility] Stop: 08/23/17 01:29 Last Admin: 08/22/17 10:03 Dose: 30 mg - Objective Vital Signs: Vital Signs Temperature 97.5 F L 08/22/17 10:09 Pulse Rate 76 08/22/17 10:09 Respiratory Rate 20 08/22/17 10:09 Blood Pressure 140/60 08/22/17 10:09 O2 Sat by Pulse Oximetry (%) 93 L 08/22/17 09:20 Constitutional: Yes: Well Nourished, Calm Eyes: Yes: WNL HENT: Yes: WNL Neck: Yes: WNL Cardiovascular: Yes: Pulse Irregular, S1, S2 Respiratory: Yes: Rales (bibasilar crackles) Gastrointestinal: Yes: Normal Bowel Sounds, Soft Extremities: Yes: WNL Edema: No Labs: CBC, BMP 08/20/17 07:14 - ....Imaging Chest X-ray: Report Reviewed, Image Reviewed (decreased congestion el) Problem List - Problems (1) A-fib Code(s): I48.91 - UNSPECIFIED ATRIAL FIBRILLATION Qualifiers: Atrial fibrillation type: permanent Qualified Code(s): I48.2 - Chronic atrial fibrillation (2) Influenza A Code(s): J10.1 - FLU DUE TO OTH IDENT INFLUENZA VIRUS W OTH RESP MANIFEST (3) Pneumonia Code(s): J18.9 - PNEUMONIA, UNSPECIFIED ORGANISM (4) Pulmonary edema Code(s): J81.1 - CHRONIC PULMONARY EDEMA Qualifiers: Chronicity: acute Qualified Code(s): J81.0 - Acute pulmonary edema (5) Respiratory failure with hypoxia Code(s): J96.91 - RESPIRATORY FAILURE, UNSPECIFIED WITH HYPOXIA (6) Elevated troponin I level Code(s): R74.8 - ABNORMAL LEVELS OF OTHER SERUM ENZYMES (7) Acute hypoxemic respiratory failure Code(s): J96.01 - ACUTE RESPIRATORY FAILURE WITH HYPOXIA Assessment/Plan Problem List - Problems (1) A-fib Code(s): I48.91 - UNSPECIFIED ATRIAL FIBRILLATION (2) Influenza A Code(s): J10.1 - FLU DUE TO OTH IDENT INFLUENZA VIRUS W OTH RESP MANIFEST (3) Pneumonia Code(s): J18.9 - PNEUMONIA, UNSPECIFIED ORGANISM (4) Pulmonary edema Code(s): J81.1 - CHRONIC PULMONARY EDEMA Qualifiers: Chronicity: acute Qualified Code(s): J81.0 - Acute pulmonary edema (5) Respiratory failure with hypoxia Code(s): J96.91 - RESPIRATORY FAILURE, UNSPECIFIED WITH HYPOXIA (6) Elevated troponin I level Code(s): R74.8 - ABNORMAL LEVELS OF OTHER SERUM ENZYMES (7) Acute hypoxemic respiratory failure Code(s): J96.01 - ACUTE RESPIRATORY FAILURE WITH HYPOXIA Assessment/Plan IMP ACUTE HYPOXEMIC RESPIRATORY FAILURE improving PNEUMONIA CHF INFLUENZA A AFIB ASHD +TROPONINS DM HTN DEMENTIA PLAN O2 NIPPV NEEDED ANTIBIOTICS PER ID TAMIFLU F/U CHEST X-RAY AM LASIX PER CARDIOLOGY AC DR ECHOLS
--- NOTE | 2017-08-22 16:02 | PN ---
Progress Note (short form) - Note Progress Note: cc: resp distress/flu S: more confused today, per nursing frequent bm's/?diarrhea today. minimal cough. patient denies sob, cp, palps, dizziness. Current Medications Acetaminophen (Tylenol -) 650 mg PO Q6H PRN PRN Reason: FEVER Last Admin: 08/20/17 06:55 Dose: 650 mg Albuterol/Ipratropium (Duoneb -) 1 amp NEB Q4H PRN PRN Reason: SHORTNESS OF BREATH Last Admin: 08/21/17 20:25 Dose: 1 amp Aspirin (Ecotrin -) 81 mg PO DAILY [facility] Last Admin: 08/22/17 10:03 Dose: 81 mg Atorvastatin Calcium (Lipitor -) 40 mg PO HS [facility] Last Admin: 08/21/17 22:24 Dose: 40 mg Digoxin (Lanoxin -) 0.25 mg PO DAILY [facility] Last Admin: 08/22/17 10:03 Dose: 0.25 mg Piperacillin Sod/Tazobactam (Sod 3.375 gm/ Dextrose) 100 mls @ 200 mls/hr IVPB Q8H-IV [facility] Last Admin: 08/22/17 10:04 Dose: 200 mls/hr Vancomycin HCl 1,000 mg/ (Dextrose) 250 mls @ 166.667 mls/hr IVPB DAILY [facility] Last Admin: 08/22/17 10:04 Dose: 166.667 mls/hr Insulin Aspart (Novolog Vial Sliding Scale -) 1 vial SQ ACHS [facility] PRN Reason: Protocol Last Admin: 08/22/17 11:44 Dose: 6 units Oseltamivir Phosphate (Tamiflu -) 30 mg PO BID [facility] Stop: 08/23/17 01:29 Last Admin: 08/22/17 10:03 Dose: 30 mg pe: Vital Signs - 24 hr 08/21/17 08/21/17 08/21/17 16:40 18:35 20:47 Temperature 97.7 F Pulse Rate 65 Respiratory 18 Rate Blood Pressure 140/59 O2 Sat by Pulse 97 97 Oximetry (%) 08/21/17 08/21/17 08/22/17 21:00 21:05 02:00 Temperature 98.6 F 97.6 F Pulse Rate 75 75 Respiratory 20 20 20 Rate Blood Pressure 147/83 153/54 O2 Sat by Pulse Oximetry (%) 08/22/17 08/22/17 08/22/17 06:00 09:00 09:20 Temperature 97.7 F Pulse Rate 70 Respiratory 20 20 Rate Blood Pressure 142/68 O2 Sat by Pulse 93 L 93 L Oximetry (%) 08/22/17 08/22/17 08/22/17 10:03 10:09 13:14 Temperature 97.5 F L Pulse Rate 76 76 Respiratory 20 Rate Blood Pressure 140/60 O2 Sat by Pulse 93 L Oximetry (%) 08/22/17 13:40 Temperature 98.0 F Pulse Rate 79 Respiratory 26 H Rate Blood Pressure 137/61 O2 Sat by Pulse Oximetry (%) Intake & Output 08/20/17 08/21/17 08/22/17 08/23/17 07:59 07:59 07:59 07:59 Intake Total 2292 2280 1520 Output Total 1250 1500 1350 300 Balance 1042 780 170 -300 Weight 166 lb 9.6 oz 166 lb nad calm no jvd irreg, s1s2 08/17 harsh sys murmur at lsb radiating to apex. scattered rhonchi, nl effort no le e/c/c abd nt nd pos bs no jaundice diaphoresis pos dp pt awake alert CBC, BMP 08/20/17 07:14 08/20/17 07:14 Laboratory Tests 08/22/17 06:30 INR 3.45 H echo 08/2017: nl lv size/fn.. tds rwma. rv not well seen. vlaves not well seen , no gross pathology ecg: afib, rate controlled, lbbb (no old to compare) tele: intermittent v-pacing with intermittent chemehuevi beats. underlying afib. a/p: 89 m hx dementia, ppm, afib, hld, dm, htn, sent from [place] for resp distress. a/p: 89 m hx dementia, ppm, afib, hld, dm, htn, sent from [place] for resp distress. resp distress, pna, vs acute chf: -possibly multifactorial with infection and chf contributing -agree with abx -unclear whether he needs diuresis or IVF since don't have accurate i/o's or weights and he received both iv lasix (60 on 08/17 and 40 on 08/18) as well as IVF. - 08/21 has continued to symptomatically improved on IVF alone. Stopped 08/20, defer lasix for now. repeat cxr tomorrow - 08/22: cxr today with slight improvement. Also with possible diarrhea today/ frequent bm's. con't to defer lasix. - echo tds but no gross ab pos trops: -mild elevation, flat trend, likely demand ischemia. no signs acs -on asa statin -echo tds, but overall nl sys fn. - 08/22 hgb has trended down while here and currently with supratherapeutic INR. Low suspicion for ACS. Ok to stop ASA. afib: -rate controlled -cont dig, level ok. will repeat for tomorrow. -holding home atenolol, monitor bp, currently controlled. -cont ac (on coumadin), dosing per inr - monitor lytes while with diarrhea. ppm: -routine outpt monitoring hld: -cont statin htn: -initally on low side. atenolol held --> stable bp's off atenolol - 08/22 sbp's trending up slightly. If persists tomorrow, consider adding back home atenolol 25 mg/day. OK to d/c telemetry
[2017-08-22] MEDS ORDERED: PT OWN MED DRAWER 7, Y5N ONE (21:49)
[2017-08-22] MEDS: ATORVASTATIN CA 40 MG TABLET (FP) PO SCH (22:02)
[2017-08-23] MEDS ORDERED: PT OWN MED DRAWER 7, Y5N ONE (01:58)
[2017-08-23] MEDS: PIPERACILLIN/TAZOB 3.375 GM 3.375 GM in DEXTROSE 5%-WATER - 100 ML IVPB SCH ×2 (02:44→10:18)
[2017-08-23] MEDS: INSULIN SLIDING SCALE (NOVOLOG) 1 VIAL SQ SCH ×4 (06:02→23:20)
[2017-08-23 06:49] LABS: HEMATOCRIT 32.9 % (35.4-49); HEMOGLOBIN 10.8 GM/dL (11.7-16.9); MCHC 32.9 g/dl (32.0-35.9); MEAN CELL VOLUME 97.2 fl (80-96); MEAN PLT VOLUME 9.4 fl (7.5-11.1); PLATELET COUNT 213 K/MM3 (134-434); RBC 3.39 M/mm3 (4.00-5.60); RDW 13.6 % (11.9-15.9); WHITE BLOOD COUNT 11.4 K/mm3 (4.0-10.0)
[2017-08-23 07:05] LABS: INR 2.94 (0.82-1.09); PROTHROMBIN TIME (PATIENT) 33.2 SEC (9.98-11.88)
[2017-08-23 07:16] LABS: ALBUMIN 2.2 g/dl (3.4-5.0); ALK PHOS 69 U/L (45-117); ANION GAP 7 (8-16); BILIRUBIN,TOTAL 0.8 mg/dL (0.2-1.0); BLOOD UREA NITROGEN 22 mg/dL (7-18); CALCIUM 8.1 mg/dL (8.5-10.1); CHLORIDE 106 mmol/L (98-107); CO2 28 mmol/L (21-32); CREATININE 0.8 mg/dL (0.7-1.3); GLUCOSE,RANDOM 153 mg/dL (74-106); POTASSIUM 3.7 mmol/L (3.5-5.1); SGOT/AST 88 U/L (15-37); SGPT/ALT 45 U/L (12-78); SODIUM 141 mmol/L (136-145); TOT PROT 5.4 g/dl (6.4-8.2)
--- NOTE | 2017-08-23 08:58 | PN ---
Progress Note, Physician Chief Complaint: sob History of Present Illness: no sob. no cp, heaviness no leg swelling no palpit - Current Medication List Current Medications: Active Medications Acetaminophen (Tylenol -) 650 mg PO Q6H PRN PRN Reason: FEVER Last Admin: 08/20/17 06:55 Dose: 650 mg Albuterol/Ipratropium (Duoneb -) 1 amp NEB Q4H PRN PRN Reason: SHORTNESS OF BREATH Last Admin: 08/21/17 20:25 Dose: 1 amp Atorvastatin Calcium (Lipitor -) 40 mg PO HS [facility] Last Admin: 08/22/17 22:02 Dose: 40 mg Digoxin (Lanoxin -) 0.25 mg PO DAILY [facility] Last Admin: 08/22/17 10:03 Dose: 0.25 mg Piperacillin Sod/Tazobactam (Sod 3.375 gm/ Dextrose) 100 mls @ 200 mls/hr IVPB Q8H-IV [facility] Last Admin: 08/23/17 02:44 Dose: 200 mls/hr Vancomycin HCl 1,000 mg/ (Dextrose) 250 mls @ 166.667 mls/hr IVPB DAILY [facility] Last Admin: 08/22/17 10:04 Dose: 166.667 mls/hr Insulin Aspart (Novolog Vial Sliding Scale -) 1 vial SQ ACHS [facility] PRN Reason: Protocol Last Admin: 08/23/17 06:02 Dose: 2 units - Objective Vital Signs: Vital Signs Temperature 97.6 F 08/23/17 02:24 Pulse Rate 58 L 08/23/17 07:42 Respiratory Rate 20 08/23/17 02:24 Blood Pressure 126/55 08/23/17 02:24 O2 Sat by Pulse Oximetry (%) 97 08/23/17 07:42 Constitutional: Yes: Well Nourished, No Distress, Calm Cardiovascular: Yes: Regular Rate and Rhythm, Murmur (3/6 early FABIANA rusb, no s2 split audible), S1, S2. No: JVD, Gallop, S3, S4 Respiratory: Yes: Regular, CTA Bilaterally. No: Accessory Muscle Use, Rales, Wheezes Extremities: No: Cold Edema: No Neurological: Yes: Alert. No: Seizure Psychiatric: No: Agitated Labs: CBC, BMP 08/23/17 06:37 08/23/17 06:37 INR, PTT INR 2.94 (0.82-1.09) H 08/23/17 06:37 - ....Imaging EKG: Other (tele: afib, V-s/V-p. HR controlled) Assessment/Plan echo 08/2017: nl lv size/fn. tds rwma. rv not well seen. valves not well seen, no gross pathology ecg: afib, rate controlled, lbbb (no old to compare) a/p: 89 m hx dementia, ppm, afib, hld, dm, htn, sent [place] for resp distress. resp distress, pna, vs acute chf: -possibly multifactorial with infection and chf contributing -agree with abx -unclear whether he needs diuresis or IVF since don't have accurate i/o's or weights and he received both iv lasix (60 on 08/17 and 40 on 08/18) as well as IVF. - 08/21 has continued to symptomatically improved on IVF alone. Stopped 08/20, defer lasix for now. repeat cxr tomorrow - 08/22: cxr today with slight improvement. Also with possible diarrhea today/ frequent bm's. con't to defer lasix. - 08/23: appears clinically euvolemic, no sx's. defer lasix as doing - has audible systolic murmur cannot exclude severe on exam (though early peaking timing)--TDS echo here. given no active sx's attributable to valve, no further inpt w/u is necessary. however i rec he have rpt high quality echo done as outpt in our office (d/w'd dr baltazar) NSTEMI: - 0.1-->0.6-->0.4 - slight [id number] pattern noted, though pt without s/sx of acute plaque rupture ACS - likely Type II CT (due to severe hypoxia on 08/17) -echo tds, but overall nl syst fn. -08/22 hgb has trended down while here and currently with supratherapeutic INR. Low suspicion for active ischemia--ASA held -cont statin, resume home atenolol -rec MPI for risk stratification as pt may very well have underlying stable coronary stenosis. in absence of any ischemic sx's here, this can be done as outpt but if he is staying for other reasons, will order for tomorrow to be done here (d/w'd dr baltazar) afib: -rate controlled -cont dig (level ok), cont home atenolol -cont ac (on coumadin), dosing per inr - monitor lytes while with diarrhea. ppm: -routine outpt monitoring hld: -cont statin htn: -initally on low side. atenolol held --> stable bp's off atenolol -bp stable to mildly elevated--resumed home atenolol OK to d/c telemetry
[2017-08-23] MEDS: DIGOXIN 0.25 MG TABLET (FP) PO SCH (10:22)
[2017-08-23] MEDS: VANCOMYCIN 1,000 MG in DEXTROSE 5%-WATER - 250 ML IVPB SCH (10:48)
--- NOTE | 2017-08-23 11:39 | PN ---
Progress Note, Physician Chief Complaint: ID Appears comfortable NO fever since admission - Current Medication List Current Medications: Active Medications Acetaminophen (Tylenol -) 650 mg PO Q6H PRN PRN Reason: FEVER Last Admin: 08/20/17 06:55 Dose: 650 mg Albuterol/Ipratropium (Duoneb -) 1 amp NEB Q4H PRN PRN Reason: SHORTNESS OF BREATH Last Admin: 08/21/17 20:25 Dose: 1 amp Atenolol (Tenormin -) 25 mg PO DAILY [facility] Atorvastatin Calcium (Lipitor -) 40 mg PO HS [facility] Last Admin: 08/22/17 22:02 Dose: 40 mg Digoxin (Lanoxin -) 0.25 mg PO DAILY [facility] Last Admin: 08/23/17 10:22 Dose: 0.25 mg Piperacillin Sod/Tazobactam (Sod 3.375 gm/ Dextrose) 100 mls @ 200 mls/hr IVPB Q8H-IV [facility] Last Admin: 08/23/17 10:18 Dose: 200 mls/hr Vancomycin HCl 1,000 mg/ (Dextrose) 250 mls @ 166.667 mls/hr IVPB DAILY [facility] Last Admin: 08/23/17 10:48 Dose: 166.667 mls/hr Insulin Aspart (Novolog Vial Sliding Scale -) 1 vial SQ ACHS [facility] PRN Reason: Protocol Last Admin: 08/23/17 06:02 Dose: 2 units - Objective Vital Signs: Vital Signs Temperature 98.6 F 08/23/17 10:00 Pulse Rate 65 08/23/17 10:22 Respiratory Rate 18 08/23/17 10:00 Blood Pressure 145/57 08/23/17 10:00 O2 Sat by Pulse Oximetry (%) 97 08/23/17 07:42 Constitutional: Yes: No Distress Cardiovascular: Yes: S1, S2 Respiratory: Yes: WNL, Regular, CTA Bilaterally Gastrointestinal: Yes: Soft. No: Tenderness Edema: No Labs: CBC, BMP 08/23/17 06:37 08/23/17 06:37 INR, PTT INR 2.94 (0.82-1.09) H 08/23/17 06:37 Assessment/Plan Microbiology 08/20/17 19:50 Sputum - Expectorated Gram Stain - Final 08/17/17 23:30 Urine - Urine Montes Urine Culture - Final NO GROWTH OBTAINED 08/17/17 23:30 Nasopharyngeal Swab Influenza Types A,B Antigen (VADIM) - Final 08/17/17 23:30 Nasopharyngeal Swab - Final 08/17/17 22:00 Blood - Peripheral Venous Blood Culture - Final NO GROWTH AFTER 5 DAYS INCUBATION 08/17/17 22:00 Blood - Peripheral Venous Blood Culture - Final NO GROWTH AFTER 5 DAYS INCUBATION 08/20/17 19:50 Sputum - Expectorated Sputum Culture - Preliminary Yeast Like Organism Laboratory Tests 08/23/17 06:37 WBC 11.4 H Hgb 10.8 L Plt Count 213 D Assessment Influenza A with exacerbation of Congestive heart failure Plan Stop all antibiotics C diff sent Discussed with cardiology Megan MIRELES
[2017-08-23] MEDS: ATENOLOL 25 MG TABLET (FP) PO SCH (11:40)
--- NOTE | 2017-08-23 12:15 | PN ---
Progress Note (short form) - Note Progress Note: Pt seen/ examined chart reviewed awake/ comfortable denies pain. no diarrhea today Vital Signs Temp 98.6 F 08/23/17 10:00 Pulse 65 08/23/17 10:22 Resp 18 08/23/17 10:00 BP 145/57 08/23/17 10:00 Pulse Ox 97 08/23/17 07:42 Intake & Output 08/22/17 08/23/17 08/23/17 23:59 11:59 23:59 Intake Total 1030 170 Output Total 700 600 Balance 330 -430 Intake: IV 10 sl 10 IVPB 300 50 Oral 720 120 Output: Urine 700 600 Montes 700 600 Other: Voiding Method Indwelling Catheter # Unmeasured Voids Montes 0 Bowel Movement Yes: 2* # Bowel Movements 2 Active Medications Acetaminophen (Tylenol -) 650 mg PO Q6H PRN PRN Reason: FEVER Last Admin: 08/20/17 06:55 Dose: 650 mg Albuterol/Ipratropium (Duoneb -) 1 amp NEB Q4H PRN PRN Reason: SHORTNESS OF BREATH Last Admin: 08/21/17 20:25 Dose: 1 amp Atenolol (Tenormin -) 25 mg PO DAILY [facility] Last Admin: 08/23/17 11:40 Dose: 25 mg Atorvastatin Calcium (Lipitor -) 40 mg PO HS [facility] Last Admin: 08/22/17 22:02 Dose: 40 mg Digoxin (Lanoxin -) 0.25 mg PO DAILY [facility] Last Admin: 08/23/17 10:22 Dose: 0.25 mg Insulin Aspart (Novolog Vial Sliding Scale -) 1 vial SQ ACHS [facility] PRN Reason: Protocol Last Admin: 08/23/17 11:39 Dose: 4 units Microbiology 08/17/17 22:00 Blood Culture - Final Blood - Peripheral Venous NO GROWTH AFTER 5 DAYS INCUBATION 08/17/17 22:00 Blood Culture - Final Blood - Peripheral Venous NO GROWTH AFTER 5 DAYS INCUBATION 08/20/17 19:50 Gram Stain - Final Sputum - Expectorated Sputum Culture - Preliminary Yeast Like Organism CBC, BMP 08/23/17 06:37 08/23/17 06:37 Physical Exam. Constitutional: Yes: No Distress . comfortable Cardiovascular: Yes: Pulse Irregular Respiratory: Yes: Diminished Gastrointestinal: Yes: Normal Bowel Sounds, Soft. No: Tenderness Edema: No Neuro- Alert and awake A/P stable off abx discussed with Leonard Schwarz and Dr. March today Stress test tomorrow d/c planning Anticipate tomorrow if stress test is -ve will follow time spend 25 min.
--- NOTE | 2017-08-23 12:20 | PN ---
Progress Note, Physician History of Present Illness: pulmonary alert,nad,-sob,-cough,-cp - Current Medication List Current Medications: Active Medications Acetaminophen (Tylenol -) 650 mg PO Q6H PRN PRN Reason: FEVER Last Admin: 08/20/17 06:55 Dose: 650 mg Albuterol/Ipratropium (Duoneb -) 1 amp NEB Q4H PRN PRN Reason: SHORTNESS OF BREATH Last Admin: 08/21/17 20:25 Dose: 1 amp Atenolol (Tenormin -) 25 mg PO DAILY [facility] Last Admin: 08/23/17 11:40 Dose: 25 mg Atorvastatin Calcium (Lipitor -) 40 mg PO HS [facility] Last Admin: 08/22/17 22:02 Dose: 40 mg Digoxin (Lanoxin -) 0.25 mg PO DAILY [facility] Last Admin: 08/23/17 10:22 Dose: 0.25 mg Insulin Aspart (Novolog Vial Sliding Scale -) 1 vial SQ ACHS [facility] PRN Reason: Protocol Last Admin: 08/23/17 11:39 Dose: 4 units - Objective Vital Signs: Vital Signs Temperature 98.6 F 08/23/17 10:00 Pulse Rate 65 08/23/17 10:22 Respiratory Rate 18 08/23/17 10:00 Blood Pressure 145/57 08/23/17 10:00 O2 Sat by Pulse Oximetry (%) 97 08/23/17 07:42 Constitutional: Yes: Well Nourished, Calm Eyes: Yes: WNL HENT: Yes: WNL Neck: Yes: WNL Cardiovascular: Yes: Pulse Irregular, S1, S2 Respiratory: Yes: CTA Bilaterally Gastrointestinal: Yes: Normal Bowel Sounds, Soft Extremities: Yes: WNL Edema: No Labs: CBC, BMP 08/23/17 06:37 08/23/17 06:37 INR, PTT INR 2.94 (0.82-1.09) H 08/23/17 06:37 - ....Imaging Chest X-ray: Report Reviewed (LESS CONGESTION), Image Reviewed Problem List - Problems (1) A-fib Code(s): I48.91 - UNSPECIFIED ATRIAL FIBRILLATION Qualifiers: Atrial fibrillation type: permanent Qualified Code(s): I48.2 - Chronic atrial fibrillation (2) Influenza A Code(s): J10.1 - FLU DUE TO OTH IDENT INFLUENZA VIRUS W OTH RESP MANIFEST (3) Pneumonia Code(s): J18.9 - PNEUMONIA, UNSPECIFIED ORGANISM (4) Pulmonary edema Code(s): J81.1 - CHRONIC PULMONARY EDEMA Qualifiers: Chronicity: acute Qualified Code(s): J81.0 - Acute pulmonary edema (5) Respiratory failure with hypoxia Code(s): J96.91 - RESPIRATORY FAILURE, UNSPECIFIED WITH HYPOXIA (6) Elevated troponin I level Code(s): R74.8 - ABNORMAL LEVELS OF OTHER SERUM ENZYMES (7) Acute hypoxemic respiratory failure Code(s): J96.01 - ACUTE RESPIRATORY FAILURE WITH HYPOXIA Assessment/Plan Problem List - Problems (1) A-fib Code(s): I48.91 - UNSPECIFIED ATRIAL FIBRILLATION (2) Influenza A Code(s): J10.1 - FLU DUE TO OTH IDENT INFLUENZA VIRUS W OTH RESP MANIFEST (3) Pneumonia Code(s): J18.9 - PNEUMONIA, UNSPECIFIED ORGANISM (4) Pulmonary edema Code(s): J81.1 - CHRONIC PULMONARY EDEMA Qualifiers: Chronicity: acute Qualified Code(s): J81.0 - Acute pulmonary edema (5) Respiratory failure with hypoxia Code(s): J96.91 - RESPIRATORY FAILURE, UNSPECIFIED WITH HYPOXIA (6) Elevated troponin I level Code(s): R74.8 - ABNORMAL LEVELS OF OTHER SERUM ENZYMES (7) Acute hypoxemic respiratory failure Code(s): J96.01 - ACUTE RESPIRATORY FAILURE WITH HYPOXIA Assessment/Plan IMP ACUTE HYPOXEMIC RESPIRATORY FAILURE IMPROVED PNEUMONIA IMPROVED CHF INFLUENZA A AFIB ASHD +TROPONINS DM HTN DEMENTIA PLAN O2 NIPPV NEEDED TAMIFLU AC STRESS TEST AM DR ECHOLS
[2017-08-23] MEDS: ATORVASTATIN CA 40 MG TABLET (FP) PO SCH (23:18)
[2017-08-24] MEDS: INSULIN SLIDING SCALE (NOVOLOG) 1 VIAL SQ SCH ×4 (06:51→21:31)
[2017-08-24 07:35] LABS: INR 2.96 (0.82-1.09); PROTHROMBIN TIME (PATIENT) 33.5 SEC (9.98-11.88)
[2017-08-24] MEDS ORDERED: REGADENOSON 0.4 MG/5 ML PRE-FILLED SYRINGE IVPUSH ONE ×2 (10:15→12:47)
--- NOTE | 2017-08-24 11:45 | PN ---
Progress Note (short form) - Note Progress Note: cc: resp distress/flu S: went for stress test today --> positive. patient denies sob, cp, palps, dizziness. ? still confused. Current Medications Acetaminophen (Tylenol -) 650 mg PO Q6H PRN PRN Reason: FEVER Last Admin: 08/20/17 06:55 Dose: 650 mg Atenolol (Tenormin -) 25 mg PO DAILY [facility] Last Admin: 08/23/17 11:40 Dose: 25 mg Atorvastatin Calcium (Lipitor -) 40 mg PO HS [facility] Last Admin: 08/23/17 23:18 Dose: 40 mg Digoxin (Lanoxin -) 0.25 mg PO DAILY [facility] Last Admin: 08/23/17 10:22 Dose: 0.25 mg Insulin Aspart (Novolog Vial Sliding Scale -) 1 vial SQ ACHS [facility] PRN Reason: Protocol Last Admin: 08/24/17 06:51 Dose: Not Give pe: Vital Signs - 24 hr 08/23/17 08/23/17 08/23/17 13:24 14:06 18:35 Temperature 98 F 98.7 F Pulse Rate 60 60 Respiratory 20 18 Rate Blood Pressure 157/75 123/55 O2 Sat by Pulse 92 L Oximetry (%) 08/23/17 08/23/17 08/24/17 21:00 22:00 06:00 Temperature 98.4 F 98.6 F Pulse Rate 94 H 61 Respiratory 18 20 Rate Blood Pressure 134/85 139/56 O2 Sat by Pulse 94 L 94 L Oximetry (%) 08/24/17 09:41 Temperature Pulse Rate 60 Respiratory 17 Rate Blood Pressure 129/63 O2 Sat by Pulse Oximetry (%) Intake & Output 08/22/17 08/23/17 08/24/17 08/25/17 07:59 07:59 07:59 07:59 Intake Total 1520 1200 630 Output Total 1350 1300 Balance 170 -100 630 Weight 166 lb 161 lb 8 oz nad calm no jvd irreg, s1s2 2/6 harsh sys murmur at lsb radiating to apex. trace rales, nl effort no le e/c/c abd nt nd pos bs no jaundice diaphoresis pos dp pt awake alert no CBC, BMP today 08/23/17 06:37 08/23/17 06:37 Laboratory Tests 08/23/17 08/24/17 07:00 05:35 INR 2.96 H Digoxin 1.6379 echo 08/2017: nl lv size/fn. tds rwma. rv not well seen. valves not well seen, no gross pathology ecg: afib, rate controlled, lbbb (no old to compare) stress test 08/24: moderate sized, severe intensity + ischemia in mid anterior wall to apex and inferoapical wall. TID 1.22 a/p: 89 m hx dementia, ppm, afib, hld, dm, htn, sent [place]. resp distress, pna, vs acute chf: -possibly multifactorial with infection and chf contributing -agree with abx -unclear whether he needs diuresis or IVF since don't have accurate i/o's or weights and he received both iv lasix (60 on 08/17 and 40 on 08/18) as well as IVF. - 08/21 has continued to symptomatically improved on IVF alone. Stopped 08/20, defer lasix for now. repeat cxr tomorrow - 08/22: cxr today with slight improvement. Also with possible diarrhea today/ frequent bm's. con't to defer lasix. - 08/23-08/24: appears clinically euvolemic, no sx's. defer lasix as doing - has audible systolic murmur cannot exclude severe on exam (though early peaking timing)--TDS echo here. given no active sx's attributable to valve, no further inpt w/u is necessary. however i rec he have rpt high quality echo done as outpt in our office (d/w'd dr baltazar) NSTEMI: - 0.1-->0.6-->0.4 - slight [id number] pattern noted, though pt without s/sx of acute plaque rupture ACS - likely Type II [place] (due to severe hypoxia on 08/17), MPI ordered for risk stratification - pt may have underlying stable coronary stenosis. -echo tds, but overall nl syst fn. -08/22 hgb has trended down while here and currently with supratherapeutic INR. Low suspicion for active ischemia--ASA held -cont statin, bp improved resumed home atenolol 08/23 -08/24: stress test positive for ischemia in LAD territory , + TID - may suggest high risk findings. Discussed with pmd, unclear what his baseline cognition/ mental status is. Need to clarify. afib: -rate controlled -cont dig (level ok), cont home atenolol -cont ac (on coumadin), dosing per inr - monitor lytes while with diarrhea. ppm: -routine outpt monitoring hld: -cont statin htn: -initally on low side. atenolol held --> stable bp's off atenolol -bp stable to mildly elevated--resumed home atenolol
--- NOTE | 2017-08-24 13:14 | PN ---
Progress Note, Physician Chief Complaint: s/p stress test no complaints - Current Medication List Current Medications: Active Medications Acetaminophen (Tylenol -) 650 mg PO Q6H PRN PRN Reason: FEVER Last Admin: 08/20/17 06:55 Dose: 650 mg Atenolol (Tenormin -) 25 mg PO DAILY [facility] Last Admin: 08/23/17 11:40 Dose: 25 mg Atorvastatin Calcium (Lipitor -) 40 mg PO HS [facility] Last Admin: 08/23/17 23:18 Dose: 40 mg Digoxin (Lanoxin -) 0.25 mg PO DAILY [facility] Last Admin: 08/23/17 10:22 Dose: 0.25 mg Insulin Aspart (Novolog Vial Sliding Scale -) 1 vial SQ ACHS [facility] PRN Reason: Protocol Last Admin: 08/24/17 06:51 Dose: Not Given - Objective Vital Signs: Vital Signs Temperature 98.6 F 08/24/17 06:00 Pulse Rate 60 08/24/17 09:41 Respiratory Rate 17 08/24/17 09:41 Blood Pressure 129/63 08/24/17 09:41 O2 Sat by Pulse Oximetry (%) 94 L 08/23/17 22:00 Constitutional: Yes: No Distress Cardiovascular: Yes: Pulse Irregular Respiratory: Yes: CTA Bilaterally Gastrointestinal: Yes: Normal Bowel Sounds, Soft. No: Tenderness Edema: No Labs: CBC, BMP 08/23/17 06:37 08/23/17 06:37 INR, PTT INR 2.96 (0.82-1.09) H 08/24/17 05:35 Problem List - Problems (1) A-fib Code(s): I48.91 - UNSPECIFIED ATRIAL FIBRILLATION Qualifiers: Atrial fibrillation type: permanent Qualified Code(s): I48.2 - Chronic atrial fibrillation (2) Acute hypoxemic respiratory failure Code(s): J96.01 - ACUTE RESPIRATORY FAILURE WITH HYPOXIA (3) Influenza A Code(s): J10.1 - FLU DUE TO OTH IDENT INFLUENZA VIRUS W OTH RESP MANIFEST (4) Pneumonia Code(s): J18.9 - PNEUMONIA, UNSPECIFIED ORGANISM (5) Pulmonary edema Code(s): J81.1 - CHRONIC PULMONARY EDEMA Qualifiers: Chronicity: acute Qualified Code(s): J81.0 - Acute pulmonary edema (6) Respiratory failure with hypoxia Code(s): J96.91 - RESPIRATORY FAILURE, UNSPECIFIED WITH HYPOXIA (7) Elevated troponin I level Code(s): R74.8 - ABNORMAL LEVELS OF OTHER SERUM ENZYMES Assessment/Plan PLAN completed Tamiflu and antibiotics supportive care dc iv fluids s/p stress test monitor INR PT eval O2 Nebs elevated troponins-- trending down now-- demand ischemia cdiff-- negative
[2017-08-24] MEDS: DIGOXIN 0.25 MG TABLET (FP) PO SCH (14:30)
[2017-08-24] MEDS: ATENOLOL 25 MG TABLET (FP) PO SCH (14:30)
[2017-08-24] MEDS: ATORVASTATIN CA 40 MG TABLET (FP) PO SCH (21:31)
[2017-08-25] MEDS: INSULIN SLIDING SCALE (NOVOLOG) 1 VIAL SQ SCH ×4 (06:19→21:21)
[2017-08-25 07:09] LABS: PROTHROMBIN TIME (PATIENT) 45.5 SEC (9.98-11.88)
[2017-08-25 07:45] LABS: INR 4.03 (0.82-1.09)
[2017-08-25] MEDS: DIGOXIN 0.25 MG TABLET (FP) PO SCH (09:35)
[2017-08-25] MEDS: ASPIRIN 81 MG CHEWABLE TABLETS PO SCH (09:36)
[2017-08-25] MEDS: ATENOLOL 25 MG TABLET (FP) PO SCH (09:36)
--- NOTE | 2017-08-25 11:33 | PN ---
Progress Note (short form) - Note Progress Note: cc: resp distress/flu S: patient denies sob, cp, palps, dizziness. ex cigs Current Medications Generic Name Dose Route Start Last Admin Trade Name Penelope PRN Reason Stop Dose Admin Acetaminophen 650 mg 08/20/17 06:02 08/20/17 06:55 Tylenol - PO 650 mg Q6H PRN Administration FEVER Aspirin 81 mg 08/25/17 10:00 08/25/17 09:36 Asa - PO 81 mg DAILY BHAVIN Administration Atenolol 25 mg 08/23/17 10:00 08/25/17 09:36 Tenormin - PO 25 mg DAILY BHAVIN Administration Atorvastatin Calcium 40 mg 08/18/17 22:00 08/24/17 21:31 Lipitor - PO 40 mg HS BHAVIN Administration Digoxin 0.25 mg 08/18/17 10:00 08/25/17 09:35 Lanoxin - PO 0.25 mg DAILY BHAVIN Administration Insulin Aspart 1 vial 08/18/17 07:00 08/25/17 11:47 Novolog Vial Sliding Scale - SQ 4 units ACHS BHAVIN Administration Protocol o: Vital Signs Temp 97.9 F 08/25/17 06:44 Pulse 67 08/25/17 09:35 Resp 16 08/25/17 06:44 BP 137/67 08/25/17 06:44 Pulse Ox 97 08/24/17 21:00 Intake & Output 08/24/17 08/24/17 08/25/17 11:59 23:59 11:59 Intake Total 120 Output Total 120 Balance 120 -120 Weight 161 lb 8 oz 162 lb 8 oz Intake: Oral 120 Output: Urine 120 Montes 120 Other: Voiding Method Diaper Diaper # Unmeasured Voids Montes 2 1 2 Bowel Movement Yes # Bowel Movements 2 Weight Measurement Method Patient Lift Scale Patient Lift Scale nad calm no jvd irreg, s1s2 2/6 harsh sys murmur at lsb radiating to apex. cta bl, nl effort no le e/c/c abd nt nd pos bs no jaundice diaphoresis pos dp pt awake alert Laboratory Last Values WBC 11.4 K/mm3 (4.0-10.0) H 08/23/17 06:37 RBC 3.39 M/mm3 (4.00-5.60) L 08/23/17 06:37 Hgb 10.8 GM/dL (11.7-16.9) L 08/23/17 06:37 Hct 32.9 % (35.4-49) L 08/23/17 06:37 MCV 97.2 fl (80-96) H 08/23/17 06:37 MCH 32.0 pg (25.7-33.7) 08/23/17 06:37 MCHC 32.9 g/dl (32.0-35.9) 08/23/17 06:37 RDW 13.6 % (11.9-15.9) 08/23/17 06:37 Plt Count 213 K/MM3 (134-434) D 08/23/17 06:37 MPV 9.4 fl (7.5-11.1) 08/23/17 06:37 Total Counted 100 08/18/17 06:32 Neutrophils % No Result Required. 08/18/17 06:32 Neutrophils % (Manual) 92.0 % (42.8-82.8) H* 08/18/17 06:32 Band Neutrophils % 3.0 % 08/18/17 06:32 Lymphocytes % No Result Required. 08/18/17 06:32 Monocytes % 8.4 % (3.8-10.2) 08/17/17 22:00 Monocytes % (Manual) 5 % (3.8-10.2) 08/18/17 06:32 Eosinophils % 1.6 % (0-4.5) 08/17/17 22:00 Basophils % 1.0 % (0-2.0) 08/17/17 22:00 Platelet Estimate Adequate 08/18/17 06:32 PT with INR 45.50 SEC (9.98-11.88) H 08/25/17 05:30 INR 4.03 (0.82-1.09) H* D 08/25/17 05:30 Anticoagulation Therapy No Result Required. 08/17/17 23:27 Puncture Site Right radial 08/18/17 06:00 ABG pH 7.47 (7.35-7.45) H 08/18/17 06:00 ABG pCO2 at Pt Temp 30.6 mmHg (35-45) L 08/18/17 06:00 ABG pO2 at Pt Temp 90.8 mmHg (68-100) D 08/18/17 06:00 ABG HCO3 21.7 meq/L (22-26) L 08/18/17 06:00 ABG O2 Sat (Measured) 97.7 % (90-98.9) 08/18/17 06:00 ABG O2 Content 18.3 % vol (15-22) 08/18/17 06:00 ABG Base Excess -0.7 meq/l (-2-2) 08/18/17 06:00 Toni Test Positive 08/18/17 06:00 Carboxyhemoglobin 1.2 gm% (0.5-2.0) 08/17/17 23:27 Methemoglobin 0.8 % (0.4-1.5) 08/17/17 23:27 O2 Delivery Device Bipap 08/18/17 06:00 Oxygen Flow Rate 60 08/18/17 06:00 Vent Mode S/t 08/18/17 06:00 Vent Rate 16 08/18/17 06:00 Mechanical Rate No Result Required. 08/17/17 23:27 Pressure Support Vent 14/7 08/18/17 06:00 Sodium 141 mmol/L (136-145) 08/23/17 06:37 Potassium 3.7 mmol/L (3.5-5.1) 08/23/17 06:37 Chloride 106 mmol/L (98-107) 08/23/17 06:37 Carbon Dioxide 28 mmol/L (21-32) 08/23/17 06:37 Anion Gap 7 (8-16) L 08/23/17 06:37 BUN 22 mg/dL (7-18) H D 08/23/17 06:37 Creatinine 0.8 mg/dL (0.7-1.3) 08/23/17 06:37 Creat Clearance w eGFR > 60 (>60) 08/23/17 06:37 POC Glucometer 147 UNITS (80-120) 08/25/17 05:47 Random Glucose 153 mg/dL (74-106) H D 08/23/17 06:37 Hemoglobin A1c % 6.6 % (4.8-6.0) H 08/18/17 08:55 Lactic Acid 1.9 mmol/L (0.0-2.0) 08/18/17 09:15 Calcium 8.1 mg/dL (8.5-10.1) L 08/23/17 06:37 Magnesium 2.0 mg/dL (1.8-2.4) 08/23/17 07:00 Total Bilirubin 0.8 mg/dL (0.2-1.0) D 08/23/17 06:37 AST 88 U/L (15-37) H D 08/23/17 06:37 ALT 45 U/L (12-78) D 08/23/17 06:37 Alkaline Phosphatase 69 U/L (45-117) 08/23/17 06:37 Creatine Kinase 45 IU/L (39-308) 08/17/17 22:00 Troponin I 0.44 ng/ml (0.00-0.05) H 08/18/17 17:50 B-Natriuretic Peptide 4683.30 pg/ml (5-450) H 08/17/17 22:00 Total Protein 5.4 g/dl (6.4-8.2) L 08/23/17 06:37 Albumin 2.2 g/dl (3.4-5.0) L 08/23/17 06:37 Urine Color Ltyellow 08/17/17 23:30 Urine Appearance Clear 08/17/17 23:30 Urine pH 5.0 (5.0-8.0) 08/17/17 23:30 Ur Specific [place] 1.009 (1.001-1.035) 08/17/17 23:30 Urine Protein Negative (NEGATIVE) 08/17/17 23:30 Urine Glucose (UA) Negative (NEGATIVE) 08/17/17 23:30 Urine Ketones Negative (NEGATIVE) 08/17/17 23:30 Urine Blood Negative (NEGATIVE) 08/17/17 23:30 Urine Nitrite Negative (NEGATIVE) 08/17/17 23:30 Urine Bilirubin Negative (NEGATIVE) 08/17/17 23:30 Urine Urobilinogen Negative mg/dL (0.2-1.0) 08/17/17 23:30 Ur Leukocyte Esterase Trace (NEGATIVE) 08/17/17 23:30 Urine WBC (Auto) 1 /hpf (3-5) 08/17/17 23:30 Urine RBC (Auto) <1 /hpf (0-3) 08/17/17 23:30 Ur Epithelial Cells Rare /HPF (FEW) 08/17/17 23:30 Urine Bacteria Rare /hpf (NONE SEEN) 08/17/17 23:30 Urine Mucus Rare 08/17/17 23:30 Ur Random Sodium 83 MMOL/L 08/18/17 07:32 Ur Random Potassium 41.9 MMOL/L 08/18/17 07:32 Ur Random Chloride 117 MMOL/L 08/18/17 07:32 Digoxin 1.6379 ng/ml (0.8-2.0) 08/23/17 07:00 tele: [employer] echo 08/2017: nl lv size/fn. tds rwma. rv not well seen. valves not well seen, no gross pathology ecg: afib, rate controlled, lbbb (no old to compare) stress test 08/24/17: moderate sized, severe intensity + ischemia in mid anterior wall to apex and inferoapical wall. TID 1.22 a/p: 89 m hx dementia, ppm, afib, hld, dm, htn, [place]. resp distress, pna, vs acute chf: -possibly multifactorial with infection and chf contributing -agree with abx -unclear whether he needs diuresis or IVF since don't have accurate i/o's or weights and he received both iv lasix (60 on 08/17 and 40 on 08/18) as well as IVF. - 08/21 has continued to symptomatically improved on IVF alone. Stopped 08/20, defer lasix for now. repeat cxr tomorrow - 08/22: cxr today with slight improvement. Also with possible diarrhea today/ frequent bm's. con't to defer lasix. - 08/23-08/25: appears clinically euvolemic, no sx's. defer lasix as doing - has audible systolic murmur cannot exclude severe on exam (though early peaking timing)--TDS echo here. given no active sx's attributable to valve, no further inpt w/u is necessary. however i rec he have rpt high quality echo done as outpt in our office (d/w'd dr baltazar) NSTEMI: - 0.1-->0.6-->0.4 - slight [id number] pattern noted, though pt without s/sx of acute plaque rupture ACS - likely Type II [place] (due to severe hypoxia on 08/17), MPI ordered for risk stratification-->stress test positive for ischemia in LAD territory , + TID (i reviewed images as well, visually TID is not impressive.) -discussed stress test and tx options with pt, he has mild dementia but clearly stated he does not want invasive procedures done such as cath/cabg. -Given his normal lvef, lack of cardiac sxs, bleeding risk if needed dapt post pci, poor functional status (dementia, bedbound, decubes), and his wishes to avoid invasive procedures, he is not a good candidate for revascularization and will continue with med rx for presumed cad. cont statin, asa, bb. Called pts listed contacts (both his sister and sagger soak) at several numbers but no answer. afib: -rate controlled -cont dig (level ok), cont home atenolol -cont ac (on coumadin), dosing per inr ppm: -routine outpt monitoring hld: -cont statin htn: -stable
--- NOTE | 2017-08-25 13:22 | PN ---
Progress Note, Physician History of Present Illness: PULMONARY ALERT,NAD,-CP,-SOB,-COUGH - Current Medication List Current Medications: Active Medications Acetaminophen (Tylenol -) 650 mg PO Q6H PRN PRN Reason: FEVER Last Admin: 08/20/17 06:55 Dose: 650 mg Aspirin (Asa -) 81 mg PO DAILY [facility] Last Admin: 08/25/17 09:36 Dose: 81 mg Atenolol (Tenormin -) 25 mg PO DAILY [facility] Last Admin: 08/25/17 09:36 Dose: 25 mg Atorvastatin Calcium (Lipitor -) 40 mg PO HS [facility] Last Admin: 08/24/17 21:31 Dose: 40 mg Digoxin (Lanoxin -) 0.25 mg PO DAILY [facility] Last Admin: 08/25/17 09:35 Dose: 0.25 mg Insulin Aspart (Novolog Vial Sliding Scale -) 1 vial SQ ACHS [facility] PRN Reason: Protocol Last Admin: 08/25/17 11:47 Dose: 4 units - Objective Vital Signs: Vital Signs Temperature 97.9 F 08/25/17 06:44 Pulse Rate 67 08/25/17 09:35 Respiratory Rate 16 08/25/17 06:44 Blood Pressure 137/67 08/25/17 06:44 O2 Sat by Pulse Oximetry (%) 98 08/25/17 09:00 Constitutional: Yes: Well Nourished, Calm Eyes: Yes: WNL HENT: Yes: WNL Neck: Yes: WNL Cardiovascular: Yes: Pulse Irregular, S1, S2 Respiratory: Yes: Rales (FEW BIBASILAR RALES) Gastrointestinal: Yes: Normal Bowel Sounds, Soft Extremities: Yes: WNL Edema: No Labs: CBC, BMP 08/23/17 06:37 08/23/17 06:37 INR, PTT INR 4.03 (0.82-1.09) H* D 08/25/17 05:30 Problem List - Problems (1) A-fib Code(s): I48.91 - UNSPECIFIED ATRIAL FIBRILLATION Qualifiers: Atrial fibrillation type: permanent Qualified Code(s): I48.2 - Chronic atrial fibrillation (2) Influenza A Code(s): J10.1 - FLU DUE TO OTH IDENT INFLUENZA VIRUS W OTH RESP MANIFEST (3) Pneumonia Code(s): J18.9 - PNEUMONIA, UNSPECIFIED ORGANISM (4) Pulmonary edema Code(s): J81.1 - CHRONIC PULMONARY EDEMA Qualifiers: Chronicity: acute Qualified Code(s): J81.0 - Acute pulmonary edema (5) Respiratory failure with hypoxia Code(s): J96.91 - RESPIRATORY FAILURE, UNSPECIFIED WITH HYPOXIA (6) Elevated troponin I level Code(s): R74.8 - ABNORMAL LEVELS OF OTHER SERUM ENZYMES (7) Acute hypoxemic respiratory failure Code(s): J96.01 - ACUTE RESPIRATORY FAILURE WITH HYPOXIA Assessment/Plan Problem List - Problems (1) A-fib Code(s): I48.91 - UNSPECIFIED ATRIAL FIBRILLATION (2) Influenza A Code(s): J10.1 - FLU DUE TO OTH IDENT INFLUENZA VIRUS W OTH RESP MANIFEST (3) Pneumonia Code(s): J18.9 - PNEUMONIA, UNSPECIFIED ORGANISM (4) Pulmonary edema Code(s): J81.1 - CHRONIC PULMONARY EDEMA Qualifiers: Chronicity: acute Qualified Code(s): J81.0 - Acute pulmonary edema (5) Respiratory failure with hypoxia Code(s): J96.91 - RESPIRATORY FAILURE, UNSPECIFIED WITH HYPOXIA (6) Elevated troponin I level Code(s): R74.8 - ABNORMAL LEVELS OF OTHER SERUM ENZYMES (7) Acute hypoxemic respiratory failure Code(s): J96.01 - ACUTE RESPIRATORY FAILURE WITH HYPOXIA Assessment/Plan IMP ACUTE HYPOXEMIC RESPIRATORY FAILURE IMPROVED PNEUMONIA IMPROVED CHF INFLUENZA A AFIB ASHD +TROPONINS +STRESS TEST DM HTN DEMENTIA PLAN O2 MEDICAL RX PER CARDIOLOGY AC DR ECHOLS
--- NOTE | 2017-08-25 17:29 | PN ---
Progress Note, Physician Chief Complaint: no distress confused - Current Medication List Current Medications: Active Medications Acetaminophen (Tylenol -) 650 mg PO Q6H PRN PRN Reason: FEVER Last Admin: 08/20/17 06:55 Dose: 650 mg Aspirin (Asa -) 81 mg PO DAILY [facility] Last Admin: 08/25/17 09:36 Dose: 81 mg Atenolol (Tenormin -) 25 mg PO DAILY [facility] Last Admin: 08/25/17 09:36 Dose: 25 mg Atorvastatin Calcium (Lipitor -) 40 mg PO HS [facility] Last Admin: 08/24/17 21:31 Dose: 40 mg Digoxin (Lanoxin -) 0.25 mg PO DAILY [facility] Last Admin: 08/25/17 09:35 Dose: 0.25 mg Insulin Aspart (Novolog Vial Sliding Scale -) 1 vial SQ ACHS [facility] PRN Reason: Protocol Last Admin: 08/25/17 16:28 Dose: Not Given - Objective Vital Signs: Vital Signs Temperature 97.9 F 08/25/17 06:44 Pulse Rate 67 08/25/17 09:35 Respiratory Rate 16 08/25/17 06:44 Blood Pressure 137/67 08/25/17 06:44 O2 Sat by Pulse Oximetry (%) 96 08/25/17 09:40 Constitutional: Yes: No Distress Cardiovascular: Yes: Pulse Irregular Respiratory: Yes: Diminished Gastrointestinal: Yes: Normal Bowel Sounds, Soft. No: Distention, Tenderness Edema: No Labs: CBC, BMP 08/23/17 06:37 08/23/17 06:37 INR, PTT INR 4.03 (0.82-1.09) H* D 08/25/17 05:30 Problem List - Problems (1) A-fib Code(s): I48.91 - UNSPECIFIED ATRIAL FIBRILLATION Qualifiers: Atrial fibrillation type: permanent Qualified Code(s): I48.2 - Chronic atrial fibrillation (2) Acute hypoxemic respiratory failure Code(s): J96.01 - ACUTE RESPIRATORY FAILURE WITH HYPOXIA (3) Influenza A Code(s): J10.1 - FLU DUE TO OTH IDENT INFLUENZA VIRUS W OTH RESP MANIFEST (4) Pneumonia Code(s): J18.9 - PNEUMONIA, UNSPECIFIED ORGANISM (5) Pulmonary edema Code(s): J81.1 - CHRONIC PULMONARY EDEMA Qualifiers: Chronicity: acute Qualified Code(s): J81.0 - Acute pulmonary edema (6) Respiratory failure with hypoxia Code(s): J96.91 - RESPIRATORY FAILURE, UNSPECIFIED WITH HYPOXIA (7) Elevated troponin I level Code(s): R74.8 - ABNORMAL LEVELS OF OTHER SERUM ENZYMES Assessment/Plan PLAN completed Tamiflu and antibiotics supportive care dc iv fluids s/p stress test-- positive for ischemia-- spoke to pt's biological sister-- who said that she will have primary contact-- Br Fletcher call back for decision making monitor INR PT eval O2 Nebs cdiff-- negative
[2017-08-25] MEDS: ATORVASTATIN CA 40 MG TABLET (FP) PO SCH (21:17)
[2017-08-26] MEDS: INSULIN SLIDING SCALE (NOVOLOG) 1 VIAL SQ SCH ×4 (06:08→21:50)
[2017-08-26] MEDS ORDERED: PT OWN MED DRAWER 7, Y5N ONE (09:39)
[2017-08-26] MEDS: ATENOLOL 25 MG TABLET (FP) PO SCH (09:44)
[2017-08-26] MEDS: ASPIRIN 81 MG CHEWABLE TABLETS PO SCH (09:44)
[2017-08-26] MEDS: DIGOXIN 0.25 MG TABLET (FP) PO SCH (09:44)
--- NOTE | 2017-08-26 10:53 | PN ---
Progress Note (short form) - Note Progress Note: cc: resp distress/flu S: patient denies sob, cp, palps, dizziness. ex cigs Current Medications Generic Name Dose Route Start Last Admin Trade Name Penelope PRN Reason Stop Dose Admin Acetaminophen 650 mg 08/20/17 06:02 08/20/17 06:55 Tylenol - PO 650 mg Q6H PRN Administration FEVER Aspirin 81 mg 08/25/17 10:00 08/26/17 09:44 Asa - PO 81 mg DAILY BHAVIN Administration Atenolol 25 mg 08/23/17 10:00 08/26/17 09:44 Tenormin - PO 25 mg DAILY BHAVIN Administration Atorvastatin Calcium 40 mg 08/18/17 22:00 08/25/17 21:17 Lipitor - PO 40 mg HS BHAVIN Administration Digoxin 0.25 mg 08/18/17 10:00 08/26/17 09:44 Lanoxin - PO 0.25 mg DAILY BHAVIN Administration Insulin Aspart 1 vial 08/18/17 07:00 08/26/17 06:08 Novolog Vial Sliding Scale - SQ Not Given ACHS [facility] Protocol o: Vital Signs Temp 98.3 F 08/26/17 06:00 Pulse 60 08/26/17 09:44 Resp 16 08/26/17 06:00 BP 133/63 08/26/17 06:00 Pulse Ox 96 08/26/17 07:40 Intake & Output 08/25/17 08/25/17 08/26/17 11:59 23:59 11:59 Output Total 120 150 Balance -120 -150 Weight 162 lb 8 oz 163 lb 2 oz Output: Urine 120 150 Montes 120 150 Other: Voiding Method Incontinent Diaper # Unmeasured Voids Montes 2 2 Weight Measurement Method Patient Lift Scale Patient Lift Scale nad calm no jvd irreg, s1s2 2/6 harsh sys murmur at lsb radiating to apex. cta bl, nl effort no le e/c/c abd nt nd pos bs no jaundice diaphoresis pos dp pt awake alert Laboratory Last Values WBC 11.4 K/mm3 (4.0-10.0) H 08/23/17 06:37 RBC 3.39 M/mm3 (4.00-5.60) L 08/23/17 06:37 Hgb 10.8 GM/dL (11.7-16.9) L 08/23/17 06:37 Hct 32.9 % (35.4-49) L 08/23/17 06:37 MCV 97.2 fl (80-96) H 08/23/17 06:37 MCH 32.0 pg (25.7-33.7) 08/23/17 06:37 MCHC 32.9 g/dl (32.0-35.9) 08/23/17 06:37 RDW 13.6 % (11.9-15.9) 08/23/17 06:37 Plt Count 213 K/MM3 (134-434) D 08/23/17 06:37 MPV 9.4 fl (7.5-11.1) 08/23/17 06:37 Total Counted 100 08/18/17 06:32 Neutrophils % No Result Required. 08/18/17 06:32 Neutrophils % (Manual) 92.0 % (42.8-82.8) H* 08/18/17 06:32 Band Neutrophils % 3.0 % 08/18/17 06:32 Lymphocytes % No Result Required. 08/18/17 06:32 Monocytes % 8.4 % (3.8-10.2) 08/17/17 22:00 Monocytes % (Manual) 5 % (3.8-10.2) 08/18/17 06:32 Eosinophils % 1.6 % (0-4.5) 08/17/17 22:00 Basophils % 1.0 % (0-2.0) 08/17/17 22:00 Platelet Estimate Adequate 08/18/17 06:32 PT with INR 45.50 SEC (9.98-11.88) H 08/25/17 05:30 INR 4.03 (0.82-1.09) H* D 08/25/17 05:30 Anticoagulation Therapy No Result Required. 08/17/17 23:27 Puncture Site Right radial 08/18/17 06:00 ABG pH 7.47 (7.35-7.45) H 08/18/17 06:00 ABG pCO2 at Pt Temp 30.6 mmHg (35-45) L 08/18/17 06:00 ABG pO2 at Pt Temp 90.8 mmHg (68-100) D 08/18/17 06:00 ABG HCO3 21.7 meq/L (22-26) L 08/18/17 06:00 ABG O2 Sat (Measured) 97.7 % (90-98.9) 08/18/17 06:00 ABG O2 Content 18.3 % vol (15-22) 08/18/17 06:00 ABG Base Excess -0.7 meq/l (-2-2) 08/18/17 06:00 Toni Test Positive 08/18/17 06:00 Carboxyhemoglobin 1.2 gm% (0.5-2.0) 08/17/17 23:27 Methemoglobin 0.8 % (0.4-1.5) 08/17/17 23:27 O2 Delivery Device Bipap 08/18/17 06:00 Oxygen Flow Rate 60 08/18/17 06:00 Vent Mode S/t 08/18/17 06:00 Vent Rate 16 08/18/17 06:00 Mechanical Rate No Result Required. 08/17/17 23:27 Pressure Support Vent 14/7 08/18/17 06:00 Sodium 141 mmol/L (136-145) 08/23/17 06:37 Potassium 3.7 mmol/L (3.5-5.1) 08/23/17 06:37 Chloride 106 mmol/L (98-107) 08/23/17 06:37 Carbon Dioxide 28 mmol/L (21-32) 08/23/17 06:37 Anion Gap 7 (8-16) L 08/23/17 06:37 BUN 22 mg/dL (7-18) H D 08/23/17 06:37 Creatinine 0.8 mg/dL (0.7-1.3) 08/23/17 06:37 Creat Clearance w eGFR > 60 (>60) 08/23/17 06:37 POC Glucometer 149 UNITS (80-120) 08/26/17 05:30 Random Glucose 153 mg/dL (74-106) H D 08/23/17 06:37 Hemoglobin A1c % 6.6 % (4.8-6.0) H 08/18/17 08:55 Lactic Acid 1.9 mmol/L (0.0-2.0) 08/18/17 09:15 Calcium 8.1 mg/dL (8.5-10.1) L 08/23/17 06:37 Magnesium 2.0 mg/dL (1.8-2.4) 08/23/17 07:00 Total Bilirubin 0.8 mg/dL (0.2-1.0) D 08/23/17 06:37 AST 88 U/L (15-37) H D 08/23/17 06:37 ALT 45 U/L (12-78) D 08/23/17 06:37 Alkaline Phosphatase 69 U/L (45-117) 08/23/17 06:37 Creatine Kinase 45 IU/L (39-308) 08/17/17 22:00 Troponin I 0.44 ng/ml (0.00-0.05) H 08/18/17 17:50 B-Natriuretic Peptide 4683.30 pg/ml (5-450) H 08/17/17 22:00 Total Protein 5.4 g/dl (6.4-8.2) L 08/23/17 06:37 Albumin 2.2 g/dl (3.4-5.0) L 08/23/17 06:37 Urine Color Ltyellow 08/17/17 23:30 Urine Appearance Clear 08/17/17 23:30 Urine pH 5.0 (5.0-8.0) 08/17/17 23:30 Ur Specific [place] 1.009 (1.001-1.035) 08/17/17 23:30 Urine Protein Negative (NEGATIVE) 08/17/17 23:30 Urine Glucose (UA) Negative (NEGATIVE) 08/17/17 23:30 Urine Ketones Negative (NEGATIVE) 08/17/17 23:30 Urine Blood Negative (NEGATIVE) 08/17/17 23:30 Urine Nitrite Negative (NEGATIVE) 08/17/17 23:30 Urine Bilirubin Negative (NEGATIVE) 08/17/17 23:30 Urine Urobilinogen Negative mg/dL (0.2-1.0) 08/17/17 23:30 Ur Leukocyte Esterase Trace (NEGATIVE) 08/17/17 23:30 Urine WBC (Auto) 1 /hpf (3-5) 08/17/17 23:30 Urine RBC (Auto) <1 /hpf (0-3) 08/17/17 23:30 Ur Epithelial Cells Rare /HPF (FEW) 08/17/17 23:30 Urine Bacteria Rare /hpf (NONE SEEN) 08/17/17 23:30 Urine Mucus Rare 08/17/17 23:30 Ur Random Sodium 83 MMOL/L 08/18/17 07:32 Ur Random Potassium 41.9 MMOL/L 08/18/17 07:32 Ur Random Chloride 117 MMOL/L 08/18/17 07:32 Digoxin 1.6379 ng/ml (0.8-2.0) 08/23/17 07:00 tele: [employer] echo 08/2017: nl lv size/fn. tds rwma. rv not well seen. valves not well seen, no gross pathology ecg: afib, rate controlled, lbbb (no old to compare) stress test 08/24/17: moderate sized, severe intensity + ischemia in mid anterior wall to apex and inferoapical wall. TID 1.22 a/p: 89 m hx dementia, ppm, afib, hld, dm, htn, [place]. resp distress, pna, vs acute chf: -possibly multifactorial with infection and chf contributing -agree with abx -unclear whether he needs diuresis or IVF since don't have accurate i/o's or weights and he received both iv lasix (60 on 08/17 and 40 on 08/18) as well as IVF. - 08/21 has continued to symptomatically improved on IVF alone. Stopped 08/20, defer lasix for now. repeat cxr tomorrow - 08/22: cxr today with slight improvement. Also with possible diarrhea today/ frequent bm's. con't to defer lasix. - 08/23-08/26: appears clinically euvolemic, no sx's. defer lasix as doing - has audible systolic murmur cannot exclude severe on exam (though early peaking timing)--TDS echo here. given no active sx's attributable to valve, no further inpt w/u is necessary. however i rec he have rpt high quality echo done as outpt in our office (d/w'd dr baltazar) NSTEMI: - 0.1-->0.6-->0.4 - slight [id number] pattern noted, though pt without s/sx of acute plaque rupture ACS - likely Type II [place] (due to severe hypoxia on 08/17), MPI ordered for risk stratification-->stress test positive for ischemia in LAD territory , + TID (i reviewed images as well, visually TID is not impressive.) -discussed stress test and tx options with pt, he has mild dementia but clearly stated he does not want invasive procedures done such as cath/cabg. -Given his normal lvef, lack of cardiac sxs, bleeding risk if needed dapt post pci, poor functional status (dementia, bedbound, decubes), and his wishes to avoid invasive procedures, he is not a good candidate for revascularization and will continue with med rx for presumed cad. cont statin, asa, bb. Again called pts contact brother aida but no answer, will try again. afib: -rate controlled -cont dig (level ok), cont home atenolol -cont ac (on coumadin), dosing per inr ppm: -routine outpt monitoring hld: -cont statin htn: -stable cardiac carbajal stable for dc
[2017-08-26 11:02] LABS: INR 1.65 (0.82-1.09); PROTHROMBIN TIME (PATIENT) 18.6 SEC (9.98-11.88)
--- NOTE | 2017-08-26 15:09 | PN ---
Progress Note (short form) - Note Progress Note: No CP or SOB. No acute events overnight. Intake & Output 08/23/17 08/24/17 08/25/17 08/26/17 23:59 23:59 23:59 23:59 Intake Total 680 120 Output Total 600 270 Balance 80 120 -270 Weight 161 lb 8 oz 162 lb 8 oz 163 lb 2 oz Last Vital Signs Temp Pulse Resp BP Pulse Ox 98.3 F 60 16 133/63 96 08/26/17 06:00 08/26/17 09:44 08/26/17 06:00 08/26/17 06:00 08/26/17 07:40 Active Medications Acetaminophen (Tylenol -) 650 mg PO Q6H PRN PRN Reason: FEVER Last Admin: 08/20/17 06:55 Dose: 650 mg Aspirin (Asa -) 81 mg PO DAILY [facility] Last Admin: 08/26/17 09:44 Dose: 81 mg Atenolol (Tenormin -) 25 mg PO DAILY [facility] Last Admin: 08/26/17 09:44 Dose: 25 mg Atorvastatin Calcium (Lipitor -) 40 mg PO HS [facility] Last Admin: 08/25/17 21:17 Dose: 40 mg Digoxin (Lanoxin -) 0.25 mg PO DAILY [facility] Last Admin: 08/26/17 09:44 Dose: 0.25 mg Insulin Aspart (Novolog Vial Sliding Scale -) 1 vial SQ ACHS [facility] PRN Reason: Protocol Last Admin: 08/26/17 12:23 Dose: 2 units Constitutional: Yes: NAD Eyes: Yes: WNL HENT: Yes: WNL Neck: Yes: WNL Cardiovascular: Yes: Pulse Irregular, S1, S2 Respiratory: Yes: Scattered basilar Rales/rhonchi Gastrointestinal: Yes: Normal Bowel Sounds, Soft Extremities: Yes: WNL Edema: No Labs: Laboratory Results - last 24 hr 08/25/17 08/25/17 08/26/17 16:27 21:19 05:30 PT with INR INR POC Glucometer 138 140 149 08/26/17 08/26/17 10:40 12:22 PT with INR 18.60 H INR 1.65 H D POC Glucometer 182 Problem List - Problems (1) A-fib Code(s): I48.91 - UNSPECIFIED ATRIAL FIBRILLATION Qualifiers: Atrial fibrillation type: permanent Qualified Code(s): I48.2 - Chronic atrial fibrillation (2) Influenza A Code(s): J10.1 - FLU DUE TO OTH IDENT INFLUENZA VIRUS W OTH RESP MANIFEST (3) Pneumonia Code(s): J18.9 - PNEUMONIA, UNSPECIFIED ORGANISM (4) Pulmonary edema Code(s): J81.1 - CHRONIC PULMONARY EDEMA Qualifiers: Chronicity: acute Qualified Code(s): J81.0 - Acute pulmonary edema (5) Respiratory failure with hypoxia Code(s): J96.91 - RESPIRATORY FAILURE, UNSPECIFIED WITH HYPOXIA (6) Elevated troponin I level Code(s): R74.8 - ABNORMAL LEVELS OF OTHER SERUM ENZYMES (7) Acute hypoxemic respiratory failure Code(s): J96.01 - ACUTE RESPIRATORY FAILURE WITH HYPOXIA Assessment/Plan IMP ACUTE HYPOXEMIC RESPIRATORY FAILURE IMPROVED PNEUMONIA IMPROVED CHF INFLUENZA A AFIB ASHD +TROPONINS +STRESS TEST DM HTN DEMENTIA PLAN O2 NEEDED CURRENT MEDS AC D/C PLANNING DR GOODSON
--- NOTE | 2017-08-26 16:49 | DS ---
Physical Examination Vital Signs: Vital Signs Temperature 97.6 F 08/26/17 13:40 Pulse Rate 60 08/26/17 13:40 Respiratory Rate 26 H 08/26/17 13:40 Blood Pressure 112/59 08/26/17 13:40 O2 Sat by Pulse Oximetry (%) 96 08/26/17 10:00 Constitutional: Yes: No Distress Cardiovascular: Yes: Pulse Irregular Respiratory: Yes: Diminished Gastrointestinal: Yes: Normal Bowel Sounds, Soft. No: Tenderness Edema: No Labs: CBC, BMP 08/23/17 06:37 08/23/17 06:37 Discharge Summary Reason For Visit: PULMONARY EDEMA Current Active Problems A-fib (Acute) Acute hypoxemic respiratory failure (Acute) Elevated troponin I level (Acute) Influenza A (Acute) Pneumonia (Acute) Pulmonary edema (Acute) Respiratory failure with hypoxia (Acute) Hospital Course: admitted for acute hypoxemic respiratory failure due to Influenza Chf decompensation and NSTEMI Seen by Cardiology , Pulmonary, ID Completed course of Tamiflu Pt improved Underwent stress test- positive for ischemia Spoke with HCP-- medical management for now per Cardiology Pt may start Eliquis Stable for dc to [facility] Condition: Stable - Instructions Referrals: Aj Carranza MD [Primary Care Provider] - [facility]position: [facility] - Home Medications Comprehensive Discharge Medication List: Ambulatory Orders Aspirin [Aspirin EC] 81 mg PO DAILY 03/26/15 Digoxin [Lanoxin -] 0.25 mg PO DAILY 03/26/15 Insulin Glargine,Hum.rec.anlog [Lantus Solostar PEN -] 15 units SQ HS 03/26/15 Sitagliptin Phosphate [Januvia] 100 mg PO DAILY 03/26/15 metFORMIN HCL [Glucophage] 1,000 mg PO BID 03/26/15 Acetaminophen 650 mg PO Q6H PRN 08/18/17 Brimonidine Tartrate [Alphagan P 0.1% -] 1 drop OU BID 08/18/17 Cholecalciferol (Vitamin D3) [Vitamin D3] 1,000 unit PO DAILY 08/18/17 Metoprolol Tartrate [Lopressor -] 25 mg PO DAILY 08/18/17 Multivitamins [Multivit ([facility] Formulary)] 1 tab PO DAILY 08/18/17 Simvastatin [Zocor -] 20 mg PO HS 08/18/17 Tolterodine Tartrate [Detrol LA] 4 mg PO DAILY 08/18/17 Vit A/Vitamin D3/E/Aloe V/Zinc [Periguard Ointment] 0 gm TP QSHIFT 08/18/17 Apixaban [Eliquis] 5 mg PO BID #0 tab 08/26/17
[2017-08-26 20:31] VITALS: PULSE 60
[2017-08-26] MEDS: ATORVASTATIN CA 40 MG TABLET (FP) PO SCH (21:47)
[2017-08-26] MEDS ORDERED: APIXABAN 5 MG TABLET PO ONE (22:15)
[2017-08-27] MEDS: INSULIN SLIDING SCALE (NOVOLOG) 1 VIAL SQ SCH ×3 (07:19→16:29)
[2017-08-27] MEDS: DIGOXIN 0.25 MG TABLET (FP) PO SCH (09:33)
[2017-08-27] MEDS: ATENOLOL 25 MG TABLET (FP) PO SCH (09:33)
[2017-08-27] MEDS: ASPIRIN 81 MG CHEWABLE TABLETS PO SCH (09:33)
--- NOTE | 2017-08-27 11:14 | PN ---
Progress Note (short form) - Note Progress Note: cc: resp distress/flu S: patient denies sob, cp, palps, dizziness. ex cigs Current Medications Generic Name Dose Route Start Last Admin Trade Name Penelope PRN Reason Stop Dose Admin Acetaminophen 650 mg 08/20/17 06:02 08/20/17 06:55 Tylenol - PO 650 mg Q6H PRN Administration FEVER Aspirin 81 mg 08/25/17 10:00 08/27/17 09:33 Asa - PO 81 mg DAILY BHAVIN Administration Atenolol 25 mg 08/23/17 10:00 08/27/17 09:33 Tenormin - PO 25 mg DAILY BHAVIN Administration Atorvastatin Calcium 40 mg 08/18/17 22:00 08/26/17 21:47 Lipitor - PO 40 mg HS BHAVIN Administration Digoxin 0.25 mg 08/18/17 10:00 08/27/17 09:33 Lanoxin - PO 0.25 mg DAILY BHAVIN Administration Insulin Aspart 1 vial 08/18/17 07:00 08/27/17 07:19 Novolog Vial Sliding Scale - SQ 2 units ACHS BHAVIN Administration Protocol o: Vital Signs Temp 97.9 F 08/27/17 08:45 Pulse 60 08/27/17 09:33 Resp 18 08/27/17 09:43 BP 137/60 08/27/17 08:45 Pulse Ox 98 08/27/17 09:43 Intake & Output 08/26/17 08/26/17 08/27/17 11:59 23:59 11:59 Intake Total 1190 210 Balance 1190 210 Weight 163 lb 2 oz 162 lb Intake: IV 10 10 sl 10 10 Oral 1180 200 Other: Voiding Method Diaper Diaper Diaper # Unmeasured Voids Montes 2 3 2 Bowel Movement Yes No No # Bowel Movements 1 Weight Measurement Method Patient Lift Scale Patient Lift Scale nad calm no jvd irreg, s1s2 2/6 harsh sys murmur at lsb radiating to apex. cta bl, nl effort no le e/c/c abd nt nd pos bs no jaundice diaphoresis pos dp pt awake alert Laboratory Last Values WBC 11.4 K/mm3 (4.0-10.0) H 08/23/17 06:37 RBC 3.39 M/mm3 (4.00-5.60) L 08/23/17 06:37 Hgb 10.8 GM/dL (11.7-16.9) L 08/23/17 06:37 Hct 32.9 % (35.4-49) L 08/23/17 06:37 MCV 97.2 fl (80-96) H 08/23/17 06:37 MCH 32.0 pg (25.7-33.7) 08/23/17 06:37 MCHC 32.9 g/dl (32.0-35.9) 08/23/17 06:37 RDW 13.6 % (11.9-15.9) 08/23/17 06:37 Plt Count 213 K/MM3 (134-434) D 08/23/17 06:37 MPV 9.4 fl (7.5-11.1) 08/23/17 06:37 Total Counted 100 08/18/17 06:32 Neutrophils % No Result Required. 08/18/17 06:32 Neutrophils % (Manual) 92.0 % (42.8-82.8) H* 08/18/17 06:32 Band Neutrophils % 3.0 % 08/18/17 06:32 Lymphocytes % No Result Required. 08/18/17 06:32 Monocytes % 8.4 % (3.8-10.2) 08/17/17 22:00 Monocytes % (Manual) 5 % (3.8-10.2) 08/18/17 06:32 Eosinophils % 1.6 % (0-4.5) 08/17/17 22:00 Basophils % 1.0 % (0-2.0) 08/17/17 22:00 Platelet Estimate Adequate 08/18/17 06:32 PT with INR 18.60 SEC (9.98-11.88) H 08/26/17 10:40 INR 1.65 (0.82-1.09) H D 08/26/17 10:40 Anticoagulation Therapy No Result Required. 08/17/17 23:27 Puncture Site Right radial 08/18/17 06:00 ABG pH 7.47 (7.35-7.45) H 08/18/17 06:00 ABG pCO2 at Pt Temp 30.6 mmHg (35-45) L 08/18/17 06:00 ABG pO2 at Pt Temp 90.8 mmHg (68-100) D 08/18/17 06:00 ABG HCO3 21.7 meq/L (22-26) L 08/18/17 06:00 ABG O2 Sat (Measured) 97.7 % (90-98.9) 08/18/17 06:00 ABG O2 Content 18.3 % vol (15-22) 08/18/17 06:00 ABG Base Excess -0.7 meq/l (-2-2) 08/18/17 06:00 Toni Test Positive 08/18/17 06:00 Carboxyhemoglobin 1.2 gm% (0.5-2.0) 08/17/17 23:27 Methemoglobin 0.8 % (0.4-1.5) 08/17/17 23:27 O2 Delivery Device Bipap 08/18/17 06:00 Oxygen Flow Rate 60 08/18/17 06:00 Vent Mode S/t 08/18/17 06:00 Vent Rate 16 08/18/17 06:00 Mechanical Rate No Result Required. 08/17/17 23:27 Pressure Support Vent 14/7 08/18/17 06:00 Sodium 141 mmol/L (136-145) 08/23/17 06:37 Potassium 3.7 mmol/L (3.5-5.1) 08/23/17 06:37 Chloride 106 mmol/L (98-107) 08/23/17 06:37 Carbon Dioxide 28 mmol/L (21-32) 08/23/17 06:37 Anion Gap 7 (8-16) L 08/23/17 06:37 BUN 22 mg/dL (7-18) H D 08/23/17 06:37 Creatinine 0.8 mg/dL (0.7-1.3) 08/23/17 06:37 Creat Clearance w eGFR > 60 (>60) 08/23/17 06:37 POC Glucometer 152 UNITS (80-120) 08/27/17 05:44 Random Glucose 153 mg/dL (74-106) H D 08/23/17 06:37 Hemoglobin A1c % 6.6 % (4.8-6.0) H 08/18/17 08:55 Lactic Acid 1.9 mmol/L (0.0-2.0) 08/18/17 09:15 Calcium 8.1 mg/dL (8.5-10.1) L 08/23/17 06:37 Magnesium 2.0 mg/dL (1.8-2.4) 08/23/17 07:00 Total Bilirubin 0.8 mg/dL (0.2-1.0) D 08/23/17 06:37 AST 88 U/L (15-37) H D 08/23/17 06:37 ALT 45 U/L (12-78) D 08/23/17 06:37 Alkaline Phosphatase 69 U/L (45-117) 08/23/17 06:37 Creatine Kinase 45 IU/L (39-308) 08/17/17 22:00 Troponin I 0.44 ng/ml (0.00-0.05) H 08/18/17 17:50 B-Natriuretic Peptide 4683.30 pg/ml (5-450) H 08/17/17 22:00 Total Protein 5.4 g/dl (6.4-8.2) L 08/23/17 06:37 Albumin 2.2 g/dl (3.4-5.0) L 08/23/17 06:37 Urine Color Ltyellow 08/17/17 23:30 Urine Appearance Clear 08/17/17 23:30 Urine pH 5.0 (5.0-8.0) 08/17/17 23:30 Ur Specific [place] 1.009 (1.001-1.035) 08/17/17 23:30 Urine Protein Negative (NEGATIVE) 08/17/17 23:30 Urine Glucose (UA) Negative (NEGATIVE) 08/17/17 23:30 Urine Ketones Negative (NEGATIVE) 08/17/17 23:30 Urine Blood Negative (NEGATIVE) 08/17/17 23:30 Urine Nitrite Negative (NEGATIVE) 08/17/17 23:30 Urine Bilirubin Negative (NEGATIVE) 08/17/17 23:30 Urine Urobilinogen Negative mg/dL (0.2-1.0) 08/17/17 23:30 Ur Leukocyte Esterase Trace (NEGATIVE) 08/17/17 23:30 Urine WBC (Auto) 1 /hpf (3-5) 08/17/17 23:30 Urine RBC (Auto) <1 /hpf (0-3) 08/17/17 23:30 Ur Epithelial Cells Rare /HPF (FEW) 08/17/17 23:30 Urine Bacteria Rare /hpf (NONE SEEN) 08/17/17 23:30 Urine Mucus Rare 08/17/17 23:30 Ur Random Sodium 83 MMOL/L 08/18/17 07:32 Ur Random Potassium 41.9 MMOL/L 08/18/17 07:32 Ur Random Chloride 117 MMOL/L 08/18/17 07:32 Digoxin 1.6379 ng/ml (0.8-2.0) 08/23/17 07:00 echo 08/2017: nl lv size/fn. tds rwma. rv not well seen. valves not well seen, no gross pathology ecg: afib, rate controlled, lbbb (no old to compare) stress test 08/24/17: moderate sized, severe intensity + ischemia in mid anterior wall to apex and inferoapical wall. TID 1.22 a/p: 89 m hx dementia, ppm, afib, hld, dm, htn, sent from [place] for resp distress. resp distress, pna, vs acute chf: -possibly multifactorial with infection and chf contributing -agree with abx -unclear whether he needs diuresis or IVF since don't have accurate i/o's or weights and he received both iv lasix (60 on 08/17 and 40 on 08/18) as well as IVF. - 08/21 has continued to symptomatically improved on IVF alone. Stopped 08/20, defer lasix for now. repeat cxr tomorrow - 08/22: cxr today with slight improvement. Also with possible diarrhea today/ frequent bm's. con't to defer lasix. - 08/23-08/27: appears clinically euvolemic, no sx's. defer lasix as doing - has audible systolic murmur cannot exclude severe on exam (though early peaking timing)--TDS echo here. given no active sx's attributable to valve, no further inpt w/u is necessary. however i rec he have rpt high quality echo done as outpt in our office (d/w'd dr baltazar) NSTEMI: - 0.1-->0.6-->0.4 - slight inlu-wrc-ewza pattern noted, though pt without s/sx of acute plaque rupture ACS - likely Type II IN (due to severe hypoxia on 08/17), MPI ordered for risk stratification-->stress test positive for ischemia in LAD territory , + TID (i reviewed images as well, visually TID is not impressive.) -discussed stress test and tx options with pt, he has mild dementia but clearly stated he does not want invasive procedures done such as cath/cabg. -Given his normal lvef, lack of cardiac sxs, bleeding risk if needed dapt post pci, poor functional status (dementia, bedbound, decubes), and his wishes to avoid invasive procedures, he is not a good candidate for revascularization and will continue with med rx for presumed cad. cont statin, asa, bb. afib: -rate controlled -cont dig (level ok), cont home atenolol -cont ac (on coumadin), dosing per inr ppm: -routine outpt monitoring hld: -cont statin htn: -stable Spoke with HCP brother aida on phone. Discussed results of stress test and options regarding med management vs cath/pci. Discussed risks/benefits of each approach. HCP decided he wanted the pt to have conservative management with medications only, no cath/pci. Cont current meds. Pt ok for dc to snf.
[2017-08-27] MEDS ORDERED: APIXABAN 5 MG TABLET PO SCH (13:15)
[2017-08-27 16:04] VITALS: BP 131/63; TEMP 98.6
== END 2017-08-27 16:56 | DRG 193 ==
LOC: JER 21:49 → JERBED 23:57 → J4S 08-19 11:54
PROVIDERS: ADMIT Internal Medicine; ATTEND Internal Medicine
PROC: 5A09457 Assistance with Respiratory Ventilation, 24-96 Consecutive Hours, Continuous Positive Airway Pressure (ICD-10-PCS; principal; 2017-08-17)
DX: J10.00 Influenza due to other identified influenza virus with unspecified type of pneumonia (principal); J96.01 Acute respiratory failure with hypoxia; I21.A1 Myocardial infarction type 2; J81.0 Acute pulmonary edema; N17.9 Acute kidney failure, unspecified; I48.2 Chronic atrial fibrillation; I25.10 Atherosclerotic heart disease of native coronary artery without angina pectoris; I73.89 Other specified peripheral vascular diseases; N32.81 Overactive bladder; E78.5 Hyperlipidemia, unspecified; I11.0 Hypertensive heart disease with heart failure; E11.40 Type 2 diabetes mellitus with diabetic neuropathy, unspecified; F03.90 Unspecified dementia, unspecified severity, without behavioral disturbance, psychotic disturbance, mood disturbance, and anxiety; I44.7 Left bundle-branch block, unspecified; E87.5 Hyperkalemia; R74.8 Abnormal levels of other serum enzymes; D72.823 Leukemoid reaction; E66.8 Other obesity; Z68.26 Body mass index [BMI] 26.0-26.9, adult; Z79.4 Long term (current) use of insulin; Z95.0 Presence of cardiac pacemaker; Z85.840 Personal history of malignant neoplasm of eye; Z87.891 Personal history of nicotine dependence
CPT/HCPCS: 36415; 36600; 71045-TC-FY; 78452-TC; 80048; 80053; 80162; 81003; 81015; 82375; 82436; 82550; 82803; 82962; 83036; 83050; 83605; 83735; 83880; 84133; 84300; 84484; 85025; 85027; 85610; 87040; 87070; 87077; 87086; 87205; 87324; 87449; 87804; 87899; 93005; 93010; 93017; 93306-TC; 94640; 94660; 97116-GP; 97161-GP; 99285-25; A9502; J2785

== ENCOUNTER 2017-10-11 16:47 | Inpatient (IN) | payer OTHER ==
[2017-10-11] MEDS ORDERED: FUROSEMIDE 40 MG/4 ML INJECTABLE VIAL IVPUSH ONE (16:59)
[2017-10-11] MEDS ORDERED: ASPIRIN 81 MG CHEWABLE TABLETS PO ONE (16:59)
--- NOTE | 2017-10-11 17:01 | PDOC ---
History of Present Illness - General Chief Complaint: Shortness of Breath Stated Complaint: CHF Time Seen by Provider: 10/11/17 16:55 Past History - Past Medical History Allergies/Adverse Reactions: Allergies Allergy/AdvReac Type Severity Reaction Status Date / Time dabigatran etexilate mesylate Allergy Intermediate GUM Verified 08/17/17 22:06 [From Pradaxa] BLEEDING Home Medications: Ambulatory Orders Aspirin [Aspirin EC] 81 mg PO DAILY 03/26/15 Digoxin [Lanoxin -] 0.25 mg PO DAILY 03/26/15 Insulin Glargine,Hum.rec.anlog [Lantus Solostar PEN -] 15 units SQ HS 03/26/15 Sitagliptin Phosphate [Januvia] 100 mg PO DAILY 03/26/15 metFORMIN HCL [Glucophage] 1,000 mg PO BID 03/26/15 Acetaminophen 650 mg PO Q6H PRN 08/18/17 Brimonidine Tartrate [Alphagan P 0.1% -] 1 drop OU BID 08/18/17 Cholecalciferol (Vitamin D3) [Vitamin D3] 1,000 unit PO DAILY 08/18/17 Metoprolol Tartrate [Lopressor -] 25 mg PO DAILY 08/18/17 Multivitamins [Multivit ([facility] Formulary)] 1 tab PO DAILY 08/18/17 Simvastatin [Zocor -] 20 mg PO HS 08/18/17 Tolterodine Tartrate [Detrol LA] 4 mg PO DAILY 08/18/17 Vit A/Vitamin D3/E/Aloe V/Zinc [Periguard Ointment] 0 gm TP QSHIFT 08/18/17 Apixaban [Eliquis] 5 mg PO BID #0 tab 08/26/17 Anemia: No Asthma: No Cancer: Yes (RIGHT LOWER LID) Cardiac Disorders: Yes (A-FIB,PACEMAKER,ANGINA) CVA: No COPD: No CHF: No Dementia: No (FORGETFUL) Diabetes: Yes (TYPE 2) GI Disorders: No Disorders: Yes (RECENT UTI-COMPLETED A/B THERAPY) HTN: Yes Hypercholesterolemia: Yes Liver Disease: No Seizures: No Thyroid Disease: No - Surgical History Abdominal Surgery: Yes (OPEN CHOLEY) Appendectomy: No Cardiac Surgery: Yes (PACEMAKER-2005,REPLACED 12/2013) Cholecystectomy: Yes (OPEN-1974) Lung Surgery: No Neurologic Surgery: No Orthopedic Surgery: Yes (RIGHT CARPAL TUNNEL RELEASE) - Immunization History Immunization Up to Date: Yes - Suicide/Smoking/Psychosocial Hx Smoking History: Former smoker Have you smoked in the past 12 months: No Number of Cigarettes Smoked Daily: 20 If you are a former smoker, when did you quit?: 1987 Hx Alcohol Use: Yes (SOCIALLY) Drug/Substance Use Hx: No Substance Use Type: Alcohol Hx Substance Use Treatment: No
[2017-10-11 17:10] VITALS: BMI 23.7
[2017-10-11] MEDS ORDERED: ASPIRIN 81 MG CHEWABLE TABLETS ONE (17:12)
[2017-10-11] MEDS ORDERED: FUROSEMIDE 40 MG/4 ML INJECTABLE VIAL ONE (17:12)
[2017-10-11 17:31] LABS: BASO % 0.7 % (0-2.0); EOS % 1.5 % (0-4.5); HEMATOCRIT 41.8 % (35.4-49); HEMOGLOBIN 13.9 GM/dL (11.7-16.9); LYMPH % 6.5 % (8-40); MCH 32.8 pg (25.7-33.7); MCHC 33.2 g/dl (32.0-35.9); MEAN CELL VOLUME 98.6 fl (80-96); MEAN PLT VOLUME 9.3 fl (7.5-11.1); MONO % 4.9 % (3.8-10.2); PLATELET COUNT 390 K/MM3 (134-434); RBC 4.24 M/mm3 (4.00-5.60); RDW 14.9 % (11.9-15.9); WHITE BLOOD COUNT 22.5 K/mm3 (4.0-10.0)
--- NOTE | 2017-10-11 17:51 | PDOC ---
Attending Attestation - HPI HPI: 10/11/17 18:27 The patient is a 89 year old male with significant history of hypertension, hyperlipidemia, diabetes, CAD, PVD, eyelid CA, a. fib s/p pacemaker (on Eliquis ) sent from [place] for shortness of breath. Per [place] home records, patient fell approximately 1.5 hours prior to arrival. Per his PCP, patient was noted to be SOB. Fluid was suctioned out his mouth with improvement in his symptoms. Patient answers questions nodding yes or no and is unable to provide remainder of history. PCP: Dr. Carranza - Medical Decision Making 10/11/17 18:34 Documentation prepared by Flakita Smith, acting as medical assistant dermatology for Selina Macedo MD. <Flakita Smith - Last Filed: 10/11/17 18:27> - Resident Resident Name: ChristyRemington - ED Attending Attestation I have performed the following: I have examined & evaluated the patient, The case was reviewed & discussed with the resident, I agree w/resident's findings & plan, Exceptions are as noted - Physicial Exam PE: 10/11/17 18:49 slender ,alert 89 yo male who presented in severe respiratory distress ands was placed on BIPAP shortly after arrival -PCP [facility] Carranza from [facility] report he was found on the floor ,had vomitus on him and they suctioned him,so there is concern for aspiration pneumonia head ncat lungs diffuse rales -cvs [id number] Neuro patient is alert and oriented 3, moving all of his extremities musculoskeketal no tenderness ,no deformities Extremities - no pitting edema. Abdominal exam -no rebound,no guarding 10/11/17 19:58 - Medical Decision Making 10/11/17 19:02 pt improved with BIPAP and received ABX for asp pneumonia. pt to be admitted diff CHF,afib,pna 10/11/17 20:01 ct scan head no acute intracranial pathology cxr + congestion <Selina Macedo - Last Filed: 10/11/17 20:01>
[2017-10-11 17:52] LABS: INR 1.48 (0.82-1.09); PROTHROMBIN TIME (PATIENT) 16.7 SEC (9.98-11.88)
--- NOTE | 2017-10-11 17:58 | PDOC ---
History of Present Illness - General Chief Complaint: Shortness of Breath Stated Complaint: CHF Time Seen by Provider: 10/11/17 16:55 History Source: Patient Exam Limitations: No Limitations - History of Present Illness Initial Comments: 10/11/17 17:51 Patient is 89M with history of dementia, PVD, CAD, overactive bladder, falls, metabolic encephalopathy, eyelid CA, afib (s/p pacemaker, eliquis), HTN, HLD, diabetes (with nephropathy) here today complaining of shortness of breath. Patient is unable to provide history beyond nodding his head yes or no. EMS reports that the patient fell in his half-way 1.5 hours prior to presentation, with no injuries appreciated. He was placed back into his bed when it was noticed he was having difficultly breathing. Patient is DNR/DNI. Past History - Past Medical History Allergies/Adverse Reactions: Allergies Allergy/AdvReac Type Severity Reaction Status Date / Time dabigatran etexilate mesylate Allergy Intermediate GUM Verified 08/17/17 22:06 [From Pradaxa] BLEEDING Home Medications: Ambulatory Orders Acetaminophen 650 mg PO BID 10/11/17 Apixaban [Eliquis] 5 mg PO BID 10/11/17 Ascorbic Acid [Vitamin C] 500 mg PO DAILY 10/11/17 Aspirin [Aspirin EC] 81 mg PO DAILY 10/11/17 Brimonidine Tartrate [Alphagan 0.15% -] 1 drop OD TID 10/11/17 Cholecalciferol (Vitamin D3) [Vitamin D3] 1,000 unit PO DAILY 10/11/17 Collagenase Clostridium Hist. [Santyl] 1 applic TP BID 10/11/17 Digoxin 0.5 mg PO DAILY 10/11/17 Insulin Glargine,Hum.rec.anlog [Lantus Solostar] 10 unit SQ HS 10/11/17 Metformin HCl [Metformin HCl ER] 1,000 mg PO BID 10/11/17 Metoprolol Tartrate 25 mg PO DAILY 10/11/17 Multivitamin [Multiple Vitamins] 1 each PO DAILY 10/11/17 Silver Sulfadiazine 1% Top Cr [Silvadene -] 1 applic TP BID 10/11/17 Simvastatin 20 mg PO HS 10/11/17 Sitagliptin Phosphate [Januvia] 100 mg PO DAILY 10/11/17 Tolterodine Tartrate [Tolterodine Tartrate ER] 4 mg PO DAILY 10/11/17 Zinc Oxide 20% Topical Oint 454 gm TD BID 10/11/17 Zinc Sulfate 220 mg PO DAILY 10/11/17 Anemia: No Asthma: No Cancer: Yes (RIGHT LOWER LID) Cardiac Disorders: Yes (A-FIB,PACEMAKER,ANGINA) CVA: No COPD: No CHF: No Dementia: No (FORGETFUL) Diabetes: Yes (TYPE 2) GI Disorders: No Disorders: Yes (RECENT UTI-COMPLETED A/B THERAPY) HTN: Yes Hypercholesterolemia: Yes Liver Disease: No Seizures: No Thyroid Disease: No - Surgical History Abdominal Surgery: Yes (OPEN CHOLEY) Appendectomy: No Cardiac Surgery: Yes (PACEMAKER-2005,REPLACED 12/2013) Cholecystectomy: Yes (OPEN-1974) Lung Surgery: No Neurologic Surgery: No Orthopedic Surgery: Yes (RIGHT CARPAL TUNNEL RELEASE) - Immunization History Immunization Up to Date: Yes - Suicide/Smoking/Psychosocial Hx Smoking History: Former smoker Have you smoked in the past 12 months: No Number of Cigarettes Smoked Daily: 20 If you are a former smoker, when did you quit?: 1987 Information on smoking cessation initiated: No Hx Alcohol Use: Yes (SOCIALLY) Drug/Substance Use Hx: No Substance Use Type: Alcohol Hx Substance Use Treatment: No Review of Systems - Review of Systems Able to Perform ROS?: No (2/2 clinical condition) *Physical Exam - Vital Signs Last Vital Signs Temp Pulse Resp BP Pulse Ox 97.7 F 48 L 38 H 186/83 90 L 10/11/17 16:47 10/11/17 16:47 10/11/17 16:47 10/11/17 16:47 10/11/17 16:47 - Physical Exam Comments: 10/11/17 17:53 GENERAL: Awake, alert, in severe distress HEAD: No signs of trauma, normocephalic, atraumatic EYES: PERRLA, EOMI, sclera anicteric, conjunctiva clear ENT: Auricles normal inspection, hearing grossly normal, nares patent, oropharynx clear without exudates. Moist mucosa NECK: Normal ROM, supple, no lymphadenopathy, JVD, or masses LUNGS: Severe distress, audible crackles without stethoscope, rales bilaterally HEART: Regular rate and rhythm, normal S1 and S2, no murmurs, rubs or gallops, peripheral pulses normal and equal bilaterally. ABDOMEN: Soft, nontender, normoactive bowel sounds. No guarding, no rebound. No masses EXTREMITIES: Normal inspection, Normal range of motion, trace edema. No clubbing or cyanosis. NEUROLOGICAL: Cranial nerves II through XII grossly intact. Moving all four extremities. SKIN: Warm, Dry, normal turgor, no rashes or lesions noted. ED Treatment Course - LABORATORY CBC & Chemistry Diagram: 10/11/17 17:00 10/11/17 17:00 - ADDITIONAL ORDERS Additional order review: 10/11/17 17:00 RBC 4.24 D MCV 98.6 H MCHC 33.2 RDW 14.9 MPV 9.3 Neutrophils % 86.4 H Lymphocytes % 6.5 L D Monocytes % 4.9 Eosinophils % 1.5 Basophils % 0.7 - RADIOLOGY Radiology Studies Ordered: Category Date Time Status HEAD CT WITHOUT CONTRAST [CT] Stat CT Scan 10/11/17 17:16 Ordered CHEST X-RAY PORTABLE* [RAD] Stat Radiology 10/11/17 17:00 Completed - Medications Given in the ED: ED Medications Discontinued Medications Generic Name Dose Route Start Last Admin Trade Name Freq PRN Reason Stop Dose Admin Aspirin 162 mg 10/11/17 16:59 10/11/17 17:20 Asa - PO 10/11/17 17:00 162 mg ONCE ONE Administration Furosemide 40 mg 10/11/17 16:59 10/11/17 17:20 Lasix Injection - IVPUSH 10/11/17 17:00 40 mg ONCE ONE Administration Medical Decision Making - Critical Care Time Total Critical Care Time (minutes): 60 Critical Care Statement: The care of this patient involved high complexity decision making to prevent further life threatening deterioration of the patient 's condition and/or to evaluate & treat vital organ system(s) failure or risk of failure. - Medical Decision Making 10/11/17 17:55 Patient is 89M with history of dementia, PVD, CAD, overactive bladder, falls, metabolic encephalopathy, eyelid CA, afib (s/p pacemaker, eliquis), HTN, HLD, diabetes (with nephropathy) here today complaining of shortness of breath. Vital signs notable for tachypnea. HR listed at 48 in triage, believe this is in error as patient has been in 80s the entire time I've evaluated the patient. HR was taken through pulse ox, do not believe it was accurate. Patient started on bipap, settings currently 14/8. Patient's respiratory status improved. Will evaluate with cardiac workup, bnp, digoxin level, and head ct. No apparent injury noted on head, will attempt to improve patient's respiratory status before attempting to get head ct. 10/11/17 18:07 EKG shows afib with LBBB. LBBB present in EKG in 08/29. Sgarbossa negative. T wave inversions in lateral leads. Rate 94. QRS wided to 148. QTc normal. 10/11/17 18:08 Laboratory Tests 10/11/17 17:00 WBC 22.5 H D Hgb 13.9 D Hct 41.8 D Plt Count 390 D CBC shows leukocytosis. Patient not on steroids per half-way medication list. CXR shows infiltrate vs pneumonia, will draw blood cultures, lactic acid, ua, uc then start vanc and zosyn for hospital acquired pneumonia. 10/11/17 18:34 Dr Tucker called regarding patient. He states that patient apparently aspirated, had large amount of fluid suctioned from lungs after fall. Will hold fluid status management for now. 10/11/17 19:20 Laboratory Tests 10/11/17 10/11/17 10/11/17 17:00 17:00 17:00 Potassium 5.4 H D Troponin I 0.07 H D B-Natriuretic Peptide 2613.62 H Digoxin 0.1971 L Digoxin level low. BNP elevated. Troponin mildly elevated to 0.07. K slightly elevated. No EKG changes consistent with hyperkalemia. Patient reassessed, respiratory rate 20-25, breathing easier. 10/11/17 20:03 Patient trialled off bipap for ct, satting 77% on return, more tachypneic. Bipap restarted. Lactate 3.1. Holding fluids given chf changes. Will admit to tele. *DC/Admit/Observation/Transfer Diagnosis at time of Disposition: Pneumonia - Discharge Dispostion Condition at time of disposition: Stable Admit: Yes - Referrals Referrals: Aj Carranza MD [Primary Care Provider] - - Patient Instructions - Post Discharge Activity
[2017-10-11 18:05] LABS: ALBUMIN 2.7 g/dl (3.4-5.0); ANION GAP 10 (8-16); BILIRUBIN,TOTAL 0.2 mg/dL (0.2-1.0); BLOOD UREA NITROGEN 36 mg/dL (7-18); CALCIUM 8.6 mg/dL (8.5-10.1); CHLORIDE 105 mmol/L (98-107); CO2 21 mmol/L (21-32); CREATININE 1.2 mg/dL (0.7-1.3); GLUCOSE,RANDOM 230 mg/dL (74-106); POTASSIUM 5.4 mmol/L (3.5-5.1); SGOT/AST 26 U/L (15-37); SGPT/ALT 13 U/L (12-78); SODIUM 136 mmol/L (136-145); TOT PROT 6.6 g/dl (6.4-8.2)
[2017-10-11] MEDS ORDERED: VANCOMYCIN 1,000 MG in DEXTROSE 5%-WATER - 250 ML IVPB ONE (18:05)
[2017-10-11] MEDS ORDERED: PIPERACIL/TAZOB 3.375 GM 3.375 GM/50 ML PREMIX IVPB ONE (18:06)
[2017-10-11 18:08] LABS: ALK PHOS 94 U/L (45-117)
[2017-10-11] MEDS ORDERED: PIPERACILLIN/TAZOB 3.375 GM 3.375 GM/50 ML BAG IVPB ONE (18:38)
[2017-10-11] MEDS ORDERED: VANCOMYCIN 1 GRAM (PRE-DOCKED) 1,000 MG/250 ML BAG IVPB ONE (18:38)
--- NOTE | 2017-10-11 20:27 | HP ---
Admitting History and Physical - Primary Care Physician PCP: Leslie Carranza - Admission Chief Complaint: SOB, s/p Fall History of Present Illness: This is a 89 y/o man with a PMHx of: Dementia, Cataracts, PVD, CAD, Over active Bladder, hx of Falls, Metabolic Encephalopathy, Eyelid Ca, Afib (s/p PM, on Eliquis), HTN, HLD, Diabetes Mellitus (with Nephroathy). Who presents to the ED from [facility] with SOB, s/p Fall. History Source: Medical Record, Transfer Record Limitations to Obtaining History: Dementia - Past Medical History EXPORT SPECIALIST: Yes: Dementia, Other (Metabolic Encephalopathy) Cardiovascular: Yes: AFIB, CAD, HTN, Hyperlipdemia Renal/: Yes: Renal Inusuff Heme/Onc: Yes: Other (eyelid cancer) Endocrine: Yes: Diabetes Mellitus Dermatology: Yes: Other (Eyelid Ca) - Past Surgical History Past Surgical History: Yes: Cholecystectomy, Permanent Pacemaker Additional Past Surgical History: Right Carpal Tunnel Release - Smoking History Smoking history: Former smoker Have you smoked in the past 12 months: No Aproximately how many cigarettes per day: 20 If you are a former smoker, when did you quit?: 1987 - Alcohol/Substance Use Hx Alcohol Use: Yes (SOCIALLY) History of Substance Use: reports: None - Social History Usual Living Arrangement: Yes: Assisted ADL: Support Services Occupation: Retired [employer] Officer History of Recent Travel: No Home Medications - Allergies Allergies/Adverse Reactions: Allergies Allergy/AdvReac Type Severity Reaction Status Date / Time dabigatran etexilate mesylate Allergy Intermediate GUM Verified 08/17/17 22:06 [From Pradaxa] BLEEDING - Home Medications Home Medications: Ambulatory Orders Acetaminophen 650 mg PO BID 10/11/17 Apixaban [Eliquis] 5 mg PO BID 10/11/17 Ascorbic Acid [Vitamin C] 500 mg PO DAILY 10/11/17 Aspirin [Aspirin EC] 81 mg PO DAILY 10/11/17 Brimonidine Tartrate [Alphagan 0.15% -] 1 drop OD TID 10/11/17 Cholecalciferol (Vitamin D3) [Vitamin D3] 1,000 unit PO DAILY 10/11/17 Collagenase Clostridium Hist. [Santyl] 1 applic TP BID 10/11/17 Digoxin 0.5 mg PO DAILY 10/11/17 Insulin Glargine,Hum.rec.anlog [Lantus Solostar] 10 unit SQ HS 10/11/17 Metformin HCl [Metformin HCl ER] 1,000 mg PO BID 10/11/17 Metoprolol Tartrate 25 mg PO DAILY 10/11/17 Multivitamin [Multiple Vitamins] 1 each PO DAILY 10/11/17 Silver Sulfadiazine 1% Top Cr [Silvadene -] 1 applic TP BID 10/11/17 Simvastatin 20 mg PO HS 10/11/17 Sitagliptin Phosphate [Januvia] 100 mg PO DAILY 10/11/17 Tolterodine Tartrate [Tolterodine Tartrate ER] 4 mg PO DAILY 10/11/17 Zinc Oxide 20% Topical Oint 454 gm TD BID 10/11/17 Zinc Sulfate 220 mg PO DAILY 10/11/17 Family Disease History - Family Disease History Family History: Unable to Obtain Review of Systems Unable to obtain ROS, reason: Dementia Physical Examination Vital Signs: Vital Signs Temperature 97.8 F 10/11/17 19:06 Pulse Rate 62 10/11/17 20:10 Respiratory Rate 18 10/11/17 20:10 Blood Pressure 124/82 10/11/17 20:10 O2 Sat by Pulse Oximetry (%) 98 10/11/17 20:10 Labs: CBC, BMP 10/11/17 17:00 10/11/17 17:00 Imaging - Results Chest X-ray: Report Reviewed, Image Reviewed Cat Scan: Report Reviewed, Image Reviewed Problem List - Problems (1) Pneumonia Code(s): J18.9 - PNEUMONIA, UNSPECIFIED ORGANISM (2) Respiratory failure with hypoxia Code(s): J96.91 - RESPIRATORY FAILURE, UNSPECIFIED WITH HYPOXIA (3) Fall at long term Code(s): W19.XXXA - UNSPECIFIED FALL, INITIAL ENCOUNTER; Y92.129 - UNSP PLACE [facility] (4) A-fib Code(s): I48.91 - UNSPECIFIED ATRIAL FIBRILLATION Qualifiers: Atrial fibrillation type: permanent Qualified Code(s): I48.2 - Chronic atrial fibrillation (5) HTN (hypertension) Code(s): I10 - ESSENTIAL (PRIMARY) HYPERTENSION (6) Diabetes mellitus Code(s): E11.9 - TYPE 2 DIABETES MELLITUS WITHOUT COMPLICATIONS (7) Decubitus ulcer Code(s): L89.90 - PRESSURE ULCER OF UNSPECIFIED SITE, UNSPECIFIED STAGE (8) OAB (overactive bladder) Code(s): N32.81 - OVERACTIVE BLADDER (9) HLD (hyperlipidemia) Code(s): E78.5 - HYPERLIPIDEMIA, UNSPECIFIED (10) History of pacemaker Code(s): Z95.0 - PRESENCE OF CARDIAC PACEMAKER (11) DVT prophylaxis Code(s): [id number] - Assessment/Plan This is a 89 y/o man with a PMHx of: Dementia, Cataracts, PVD, CAD, OAB, hx of Falls, Meatbolic Encephalopathy, Eyelid Ca, Afib (s/p PM, on Eliquis), HTN, HLD , DM (with Nephropathy). Admitted to Telemetry for Acute on Chronic Respiratory failure, Hypoxia secondary to Aspiration Pneumonia, s/p Fall at [place] Plan: 1. Pulm: Acute on chronic Respiratory Failure, Hypoxemia, Aspiration Pnuemonia - Admit to tele - Continue Bipap - ABG ordered- patient refused, will order VBG instead - Will adjust settings accordingly - [id number] Score 3 - SIRS Criteria MET IV - Chest Xray- small bilateral pleural effusions, B/L opacities, secondary to Pulm Edema - Blood cultures-pending - Rapid Influenza Swab-pending - Urine Culture, Urine Legionella-pending - Vancomycin and Zosyn given in ED, will continue - Appreciate ID consult - Appreciate Pulm consult - WBC 22.5, LA 3.1 - Repeat CBC, BMP in am 2. Card: CHF Exacerbation, HTN, HLD, Afib - CXR reviewed - Lasix given in ED, will continue - Continue cardiac monitoring - Appreciate Cardiology consult - EKG-Afib - [id number] - Continue Eliquis - strict INOs - Daily weight - Monitor BMP - Continue home meds 3. Endocrinology: Diabetes Mellitus - BGMs - ISS - Hold metformin 2/2 Lactic Acidemia - Hold Januvia 2/2 HF 4. Psych: Dementia - Continue home med - Fall precautions 5. Metabolic Encephalopathy - Likely secondary to CHF vs advanced Dementia - Fall precautions - Neurochecks 6. FEN - Fluid Restrictions - Replete lytes prn - NPO while on Bipap 7. DVT ppx - SCDs - Continue Eliquis Code Status: DNR/DNI Dispo: Requires Inpatient Care Visit type - Emergency Visit Emergency Visit: Yes ED Registration Date: 10/11/17 Care time: The patient presented to the Emergency Department on the above date and was hospitalized for further evaluation of their emergent condition. - New Patient This patient is new to me today: Yes Date on this admission: 10/11/17 - Critical Care Critical Care patient: No Hospitalist Screening - Colonoscopy Questionnaire Colonoscopy Questionnaire: Colonoscopy Questionnaire - Patient: 50 - 75 years old and never had a screening colonoscopy: Unknown History of colon or rectal polyps, or CA: Unknown History of IBD, Crohn's disease or UC: Unknown History of abdominal radiation therapy as a child: Unknown - Relative: 1 with colon or rectal CA, or polyps at age 60 or younger: Unknown Colon or rectal CA diagnosed at age 45 or younger: Unknown Multiple relatives with colon or rectal CA: Unknown - Outcome: Screening Result: Negative Screen
[2017-10-11 21:55] LABS: NEUT % 86.4 % (42.8-82.8)
[2017-10-11 23:29] LABS: VENOUS PC02 41.9 mmHg (38-52); VENOUS PH 7.34 (7.32-7.42); VENOUS PO2 29.9 mmHg (28-48)
[2017-10-12] MEDS: APIXABAN 5 MG TABLET PO SCH ×3 (01:56→21:33)
[2017-10-12] MEDS: BRIMONIDINE TARTRATE 0.15% OPHTHALMIC 5 ML BOTTLE OU SCH ×3 (02:00→21:34)
[2017-10-12 06:51] LABS: HEMATOCRIT 34.9 % (35.4-49); MCH 33.5 pg (25.7-33.7); MCHC 34.5 g/dl (32.0-35.9); MEAN CELL VOLUME 97.3 fl (80-96); MEAN PLT VOLUME 9.4 fl (7.5-11.1); PLATELET COUNT 306 K/MM3 (134-434); RBC 3.59 M/mm3 (4.00-5.60); RDW 14.3 % (11.9-15.9); WHITE BLOOD COUNT 21.3 K/mm3 (4.0-10.0)
[2017-10-12 07:27] LABS: CHLORIDE 106 mmol/L (98-107); POTASSIUM 5.3 mmol/L (3.5-5.1); SODIUM 138 mmol/L (136-145)
[2017-10-12 07:32] LABS: ANION GAP 10 (8-16); BLOOD UREA NITROGEN 44 mg/dL (7-18); CALCIUM 8.5 mg/dL (8.5-10.1); CO2 22 mmol/L (21-32); CREATININE 1.2 mg/dL (0.7-1.3); GLUCOSE,RANDOM 177 mg/dL (74-106); MAGNESIUM 1.9 mg/dL (1.8-2.4); PHOSPHOROUS 4.9 mg/dL (2.5-4.9)
[2017-10-12] MEDS ORDERED: VANCOMYCIN 1,000 MG in DEXTROSE 5%-WATER - 250 ML IVPB ONE (09:00)
--- NOTE | 2017-10-12 09:54 | PN ---
Progress Note (short form) - Note Progress Note: ID Consult dictated HCAP , possible aspiration R/O sepsis secondary to pneumonia Leukocytosis Lactic acidosis CHF Await cultures Empiric zosyn
[2017-10-12] MEDS ORDERED: PIPERACILLIN/TAZOB 3.375 GM 3.375 GM in DEXTROSE 5%-WATER - 50 ML IVPB ONE (10:00)
[2017-10-12] MEDS ORDERED: DIGOXIN PO SCH (10:00)
[2017-10-12] MEDS ORDERED: PIPERACIL/TAZOB 3.375 GM 3.375 GM/50 ML PREMIX IVPB SCH (10:00)
[2017-10-12] MEDS ORDERED: VANCOMYCIN 1,000 MG in DEXTROSE 5%-WATER - 250 ML IVPB SCH (10:00)
--- NOTE | 2017-10-12 10:10 | EKG ---
Test Reason : Blood Pressure : / mmHG Vent. Rate : 094 BPM Atrial Rate : 120 BPM P-R Int : 000 ms QRS Dur : 148 ms QT Int : 376 ms P-R-T Axes : 000 -15 143 degrees QTc Int : 470 ms POOR DATA QUALITY, INTERPRETATION MAY BE ADVERSELY AFFECTED ATRIAL FIBRILLATION LEFT BUNDLE BRANCH BLOCK ABNORMAL ECG Confirmed by Pepe Masterson MD ([id number]) on 10/12/2017 10:10:19 AM Referred By: Confirmed By:Pepe Masterson MD
[2017-10-12] MEDS ORDERED: PT OWN MED DRAWER 7, Y5N ONE (10:11)
[2017-10-12] MEDS ORDERED: PIPERACILLIN/TAZOBACTAM 3.375 GM VIAL IVPB ONE ×2 (10:11→18:22)
[2017-10-12] MEDS ORDERED: DEXTROSE 5%-WATER - 50 ML IVPB ONE ×2 (10:12→18:22)
[2017-10-12] MEDS: SILVER SULFADIAZINE 1% TOP CREAM 50 GM JAR TP SCH ×2 (10:19→22:27)
[2017-10-12] MEDS: CHOLECALCIFEROL (VITAMIN D3) 1,000 UNIT TABLET (FP) PO SCH (10:28)
[2017-10-12] MEDS: METOPROLOL TARTRATE 25 MG TABLET (FP) PO SCH (10:29)
[2017-10-12] MEDS: ASPIRIN COATED 81 MG TABLET.EC PO SCH (10:29)
[2017-10-12] MEDS: MULTIVITAMINS (DAILY MVI) TABLET (FP) PO SCH (10:29)
[2017-10-12] MEDS: ASCORBIC ACID 500 MG TABLET (FP) PO SCH (10:29)
[2017-10-12] MEDS: TOLTERODINE TARTRATE LA 4 MG CAP.SR.24H (FP) PO SCH ×2 (10:30→12:20)
[2017-10-12] MEDS: PIPERACILLIN/TAZOB 3.375 GM 3.375 GM in DEXTROSE 5%-WATER - 50 ML IVPB SCH ×2 (10:30→18:20)
--- NOTE | 2017-10-12 10:36 | PN ---
Progress Note, Physician Chief Complaint: Events noted No complaints has no SOB coughing+ - Current Medication List Current Medications: Active Medications Apixaban (Eliquis -) 5 mg PO BID [facility] Last Admin: 10/12/17 10:29 Dose: 5 mg Ascorbic Acid (Vitamin C -) 500 mg PO DAILY [facility] Last Admin: 10/12/17 10:29 Dose: 500 mg Aspirin (Ecotrin -) 81 mg PO DAILY [facility] Last Admin: 10/12/17 10:29 Dose: 81 mg Atorvastatin Calcium (Lipitor -) 10 mg PO HS [facility] Brimonidine Tartrate (Alphagan 0.15% -) 1 drop OU BID [facility] Last Admin: 10/12/17 10:30 Dose: Not Given Cholecalciferol (Vitamin D3 -) 1,000 unit PO DAILY [facility] Last Admin: 10/12/17 10:28 Dose: 1,000 unit Collagenase (Santyl -) 1 applic TP BID [facility] Piperacillin Sod/Tazobactam (Sod 3.375 gm/ Dextrose) 50 mls @ 100 mls/hr IVPB Q8H-IV [facility] PRN Reason: Protocol Last Admin: 10/12/17 10:30 Dose: 100 mls/hr Metoprolol Tartrate (Lopressor -) 25 mg PO DAILY [facility] Last Admin: 10/12/17 10:29 Dose: 25 mg Multivitamins/Minerals/Vitamin C (Tab-A-Vit -) 1 tab PO DAILY [facility] Last Admin: 10/12/17 10:29 Dose: 1 tab Non-Formulary Medication (Digoxin [Digoxin]) 0.5 ml PO DAILY [facility] Silver Sulfadiazine (Silvadene -) 1 applic TP BID [facility] Tolterodine Tartrate (Detrol La -) 4 mg PO DAILY [facility] Last Admin: 10/12/17 10:30 Dose: Not Given - Objective Vital Signs: Vital Signs Temperature 98.4 F 10/12/17 06:14 Pulse Rate 73 10/12/17 06:14 Respiratory Rate 20 10/12/17 06:14 Blood Pressure 105/53 10/12/17 06:14 O2 Sat by Pulse Oximetry (%) 99 10/12/17 06:00 Constitutional: Yes: No Distress Cardiovascular: Yes: Pulse Irregular Respiratory: Yes: Diminished, Rhonchi Gastrointestinal: Yes: Normal Bowel Sounds, Soft. No: Tenderness Edema: No Labs: CBC, BMP 10/12/17 06:25 10/12/17 06:25 INR, PTT INR 1.48 (0.82-1.09) H 10/11/17 17:00 Problem List - Problems (1) CHF exacerbation Code(s): I50.9 - HEART FAILURE, UNSPECIFIED (2) Diabetes mellitus Code(s): E11.9 - TYPE 2 DIABETES MELLITUS WITHOUT COMPLICATIONS (3) Pneumonia Code(s): J18.9 - PNEUMONIA, UNSPECIFIED ORGANISM (4) Troponin I above reference range Code(s): R74.8 - ABNORMAL LEVELS OF OTHER SERUM ENZYMES (5) A-fib Code(s): I48.91 - UNSPECIFIED ATRIAL FIBRILLATION Qualifiers: Atrial fibrillation type: permanent Qualified Code(s): I48.2 - Chronic atrial fibrillation (6) Respiratory failure with hypoxia Code(s): J96.91 - RESPIRATORY FAILURE, UNSPECIFIED WITH HYPOXIA Assessment/Plan PLAN IV antibiotics troponins flat Lasix iv Telemetry check daily weights Cardiology and Pulmomary eval noted continue with meds Rate is controlled On eliquis for Afib
--- NOTE | 2017-10-12 11:04 | CONS ---
INFECTIOUS DISEASE CONSULTATION DATE OF CONSULTATION: DATE OF DICTATION: 10/12/2017 The patient is an 89-year-old male evaluated for aspiration pneumonia. History was obtained from the chart. He is an 89-year-old male with a history of dementia, [facility] with shortness of breath. The patient had apparently fallen. According to the patient, he slipped from his wheelchair onto the floor. He was found to be on the floor with vomitus and copious amounts of oropharyngeal secretions. He was transferred to the hospital where he was placed on BiPAP mask. His chest x-ray showed increased markings, right lung field. He was also noted to have a markedly elevated white blood cell count. Cultures were obtained. He was empirically treated with vancomycin and Zosyn. A CAT scan of the head was performed and was negative. At the present time, he is awake and alert. He has no focal complaint. He denies any chest pain. Denies any shortness of breath, cough, or sputum production. Denies any vomiting. His breathing appears non-labored at rest in bed on nasal cannula O2. Patient was hospitalized at [facility] in August 2017 with acute influenza A. He denies any purulent sputum production, hemoptysis, chest pain. No complaints of abdominal pain, recurrent vomiting, or diarrhea. No complaints of dysuria or hematuria. PAST MEDICAL HISTORY: Positive for dementia, coronary artery disease, peripheral vascular disease, atrial fibrillation, congestive heart failure, diabetes mellitus, hypertension, hyperlipidemia. ALLERGIES: PRADAXA. MEDICATIONS: Include Eliquis, digoxin, metformin, insulin, metoprolol, simvastatin, and Januvia. SOCIAL HISTORY: He is a jail resident. He is a former smoker. No history of alcohol abuse. SYSTEMS REVIEW: Neurologic: Positive for dementia. Cardiac: Positive for coronary artery disease, atrial fibrillation. Respiratory: As per HPI. Gastrointestinal: As per HPI. Genitourinary: Negative for urinary tract infection. LABORATORY DATA: White count 21.3, with 86 neutrophils, 6 lymphocytes, 4 monocytes; hematocrit 34.9; platelet count 306. BUN 44, creatinine 1.2. Lactic acid 2.7. Blood cultures pending. Rapid influenza swab negative. Chest x-ray shows increased markings, right lung field; small bilateral pleural effusions. PHYSICAL EXAMINATION: General: The patient is supine in bed, awake and alert. He is not acutely toxic appearing, in no acute respiratory distress. Vital Signs: Temperature 98.4; blood pressure 105/53; pulse 73, regular; respirations 20 per minute. HEENT: Sclerae are anicteric. Heart: Sounds irregular. S1, S2. A 2/6 pansystolic murmur. Lungs: Crepitations, left base. Scattered rhonchi, right lung field. Abdomen: Soft. No tenderness elicited. No mass, rebound, or rigidity. Extremities: Edema 1+. IMPRESSION: 1. senior living acquired pneumonia, possible aspiration. 2. Rule out sepsis secondary to pneumonia. 3. Leukocytosis. 4. Lactic acidosis. 5. Congestive heart failure. 6. Status post recent acute influenza. Patient has been given vancomycin and Zosyn. We will obtain sputum culture, await urine legionella and pneumococcal antigens. Empiric antibiotic coverage with Zosyn. Will follow. Thank you for the kind referral. BRENDEN BARBOSA M.D. [id number]
[2017-10-12 11:44] LABS: PLATELET ESTIMATE ADEQUATE
--- NOTE | 2017-10-12 11:44 | CON.CARD ---
Cardiology Consult (text) - Consultation Consultation Note: cc: [facility] hpi: 89 m hx cad s/p nstemi 08/2017, dementia, ppm, afib, hld, dm, htn, [facility] [place] [facility]. Hx from chart pt with dementia. History unclear but appears to have presented with complaints of sob and was noted to be in respiatory distress in ER. May have had slipped off of wheelchair during transfer, but unclear if he had a fall. currently patient denies sob, cp, palps, dizziness, orthopnea, pnd, le edema. no f/c/s, n/v/d, cough, congestion, h/a, visual disturbances. s/p lasix 40 mg IV x 1 and abx. pmh: per hpi psh: ppm, cholecystectomy social: ex tob fam: unknown ros: unable to obtain 2/2 dementia meds: Ambulatory Orders Acetaminophen 650 mg PO BID 10/11/17 Apixaban [Eliquis] 5 mg PO BID 10/11/17 Ascorbic Acid [Vitamin C] 500 mg PO DAILY 10/11/17 Aspirin [Aspirin EC] 81 mg PO DAILY 10/11/17 Brimonidine Tartrate [Alphagan 0.15% -] 1 drop OD TID 10/11/17 Cholecalciferol (Vitamin D3) [Vitamin D3] 1,000 unit PO DAILY 10/11/17 Collagenase Clostridium Hist. [Santyl] 1 applic TP BID 10/11/17 Digoxin 0.5 mg PO DAILY 10/11/17 Insulin Glargine,Hum.rec.anlog [Lantus Solostar] 10 unit SQ HS 10/11/17 Metformin HCl [Metformin HCl ER] 1,000 mg PO BID 10/11/17 Metoprolol Tartrate 25 mg PO DAILY 10/11/17 Multivitamin [Multiple Vitamins] 1 each PO DAILY 10/11/17 Silver Sulfadiazine 1% Top Cr [Silvadene -] 1 applic TP BID 10/11/17 Simvastatin 20 mg PO HS 10/11/17 Sitagliptin Phosphate [Januvia] 100 mg PO DAILY 10/11/17 Tolterodine Tartrate [Tolterodine Tartrate ER] 4 mg PO DAILY 10/11/17 Zinc Oxide 20% Topical Oint 454 gm TD BID 10/11/17 Zinc Sulfate 220 mg PO DAILY 10/11/17 Current Medications Apixaban (Eliquis -) 5 mg PO BID [facility] Last Admin: 10/12/17 10:29 Dose: 5 mg Ascorbic Acid (Vitamin C -) 500 mg PO DAILY [facility] Last Admin: 10/12/17 10:29 Dose: 500 mg Aspirin (Ecotrin -) 81 mg PO DAILY [facility] Last Admin: 10/12/17 10:29 Dose: 81 mg Atorvastatin Calcium (Lipitor -) 10 mg PO HS [facility] Brimonidine Tartrate (Alphagan 0.15% -) 1 drop OU BID [facility] Last Admin: 10/12/17 10:30 Dose: Not Given Cholecalciferol (Vitamin D3 -) 1,000 unit PO DAILY [facility] Last Admin: 10/12/17 10:28 Dose: 1,000 unit Collagenase (Santyl -) 1 applic TP BID [facility] Piperacillin Sod/Tazobactam (Sod 3.375 gm/ Dextrose) 50 mls @ 100 mls/hr IVPB Q8H-IV [facility] PRN Reason: Protocol Last Admin: 10/12/17 10:30 Dose: 100 mls/hr Metoprolol Tartrate (Lopressor -) 25 mg PO DAILY [facility] Last Admin: 10/12/17 10:29 Dose: 25 mg Multivitamins/Minerals/Vitamin C (Tab-A-Vit -) 1 tab PO DAILY [facility] Last Admin: 10/12/17 10:29 Dose: 1 tab Non-Formulary Medication (Digoxin [Digoxin]) 0.5 ml PO DAILY [facility] Silver Sulfadiazine (Silvadene -) 1 applic TP BID [facility] Tolterodine Tartrate (Detrol La -) 4 mg PO DAILY [facility] Last Admin: 10/12/17 10:30 Dose: Not Given pe: Vital Signs - 24 hr 10/11/17 10/11/17 10/11/17 16:47 17:20 18:00 Temperature 97.7 F Pulse Rate 48 L Pulse Rate [ 85 Apical] Respiratory 38 H 26 H Rate Blood Pressure 186/83 Blood Pressure 113/65 [Right Arm] O2 Sat by Pulse 90 L 100 99 Oximetry (%) 10/11/17 10/11/17 10/11/17 18:41 19:06 20:10 Temperature 97.8 F Pulse Rate Pulse Rate [ 62 Apical] Respiratory 18 Rate Blood Pressure Blood Pressure 124/82 [Right Arm] O2 Sat by Pulse 97 98 Oximetry (%) 10/11/17 10/11/17 10/12/17 21:45 23:15 01:41 Temperature 97.7 F Pulse Rate Pulse Rate [ 74 Apical] Respiratory 18 Rate Blood Pressure Blood Pressure 134/79 [Right Arm] O2 Sat by Pulse 98 100 98 Oximetry (%) 10/12/17 10/12/17 10/12/17 02:03 06:00 06:14 Temperature 97.9 F 98.4 F Pulse Rate 88 73 Pulse Rate [ Apical] Respiratory 20 20 Rate Blood Pressure 106/50 105/53 Blood Pressure [Right Arm] O2 Sat by Pulse 98 99 Oximetry (%) Intake & Output 10/10/17 10/11/17 10/12/17 10/13/17 07:59 07:59 07:59 07:59 Intake Total 10 Balance 10 Weight 147 lb nad no jvd jvd flat, irreg, s1s2 2/6 sys murmur at sternal border decreased bs at right base, nl effort no le e/c/c abd nt nd pos bs no jaundice diaphoresis diminshed dp pt awake alert CBC, BMP 10/12/17 06:25 10/12/17 06:25 Laboratory Tests 08/17/17 08/18/17 10/11/17 22:00 06:32 17:00 Lactic Acid Magnesium Creatine Kinase 35 L Troponin I 0.61 H* D 0.07 H D B-Natriuretic Peptide 4683.30 H Albumin 2.7 L D Digoxin 10/11/17 10/11/17 10/11/17 17:00 17:00 18:02 Lactic Acid 3.1 H* Magnesium Creatine Kinase Troponin I B-Natriuretic Peptide 2613.62 H Albumin Digoxin 0.1971 L 10/11/17 10/11/17 10/12/17 23:00 23:00 06:25 Lactic Acid 2.7 H* Magnesium 1.9 Creatine Kinase 37 L Troponin I 0.22 H D B-Natriuretic Peptide Albumin Digoxin 10/12/17 12:35 Lactic Acid Magnesium Creatine Kinase 23 L Troponin I 0.12 H D B-Natriuretic Peptide Albumin Digoxin ekg: afib, vr 94 bpm. LBBB. tele: demand vpacing, undelrying afib. head ct: no acue pathology. cxr: small bilateral pleural effusions. bilateral mixed reticular and airspace oopacities possibly 2/2 pulmonary edema, although infection/inflammation can't be excluded. echo 08/2017: nl lv size/fn. tds rwma. rv not well seen. valves not well seen, no gross pathology stress test 08/24/17: moderate sized, severe intensity + ischemia in mid anterior wall to apex and inferoapical wall. TID 1.22 A/p 89 m hx cad s/p nstemi 08/2017, dementia, ppm, afib, hld, dm, htn, [place] [facility] [place] [facility]. resp distress, pna, vs acute chf: -possibly multifactorial with infection and chf contributing - BNP decreased from priors and lactate elevated without other signs of cardiogenic shock so would pursue pulmonary/infecctious etiology. However, cxr c/w mild congestion. Agree with trial of lasix 40 mg IV daily with close monitoring. - degree of on last admit was unclear. may have had repeat echo in office. will review. borderline increased troponins/known cad with hx of prior nstemi - flat trend and down from 08/2017 (when he had nstemi/demand in the setting of respiratory distress --> medically managed at that time per patient/family preference) Currently trop borderline elevated with flat/decreasing trend. Likely demand in the setting of underlying cad. no suspicion for acs. ekg lbbb. - con't med mgm't with statin, bb, ac with asa (for now). afib: -rate controlled on dig (level ok), and bb. con't. -cont ac with eliquis ppm: -routine outpt monitoring hld: -cont statin htn: -stable
--- NOTE | 2017-10-12 12:03 | PN ---
Progress Note (short form) - Note Progress Note: PULMONARY CONSULTATION DICTATED IMP ACUTE HYPOXEMIC RESPIRATORY FAILURE LIKELY PNEUMONIA CHF +TROPONINS LIKELY DEMAND ISCHEMIA ELEVATED LACTATE LEVEL AFIB S/P PPM PVD HLD H/O EYELID CA PLAN ABX PER ID O2 NIPPV IF PT DEVELOPES INCREASED RESPIRATORY DISTRESS INHALED BRONCHODILATORS TREND LACTATE TREND TROPONINS CULTURES ECHO F/U CHEST X-RAYS DR ECHOLS Problem List - Problems (1) Lactate blood increase Code(s): R79.89 - OTHER SPECIFIED ABNORMAL FINDINGS OF BLOOD CHEMISTRY (2) DVT prophylaxis Code(s): CVM4437 - (3) Fall at senior living Code(s): W19.XXXA - UNSPECIFIED FALL, INITIAL ENCOUNTER; Y92.129 - UNSP PLACE IN [facility]ACE (4) HLD (hyperlipidemia) Code(s): E78.5 - HYPERLIPIDEMIA, UNSPECIFIED (5) HTN (hypertension) Code(s): I10 - ESSENTIAL (PRIMARY) HYPERTENSION (6) History of pacemaker Code(s): Z95.0 - PRESENCE OF CARDIAC PACEMAKER (7) Pneumonia Code(s): J18.9 - PNEUMONIA, UNSPECIFIED ORGANISM (8) A-fib Code(s): I48.91 - UNSPECIFIED ATRIAL FIBRILLATION Qualifiers: Atrial fibrillation type: permanent Qualified Code(s): I48.2 - Chronic atrial fibrillation (9) Acute hypoxemic respiratory failure Code(s): J96.01 - ACUTE RESPIRATORY FAILURE WITH HYPOXIA (10) Elevated troponin I level Code(s): R74.8 - ABNORMAL LEVELS OF OTHER SERUM ENZYMES (11) Respiratory failure with hypoxia Code(s): J96.91 - RESPIRATORY FAILURE, UNSPECIFIED WITH HYPOXIA (12) Troponin I above reference range Code(s): R74.8 - ABNORMAL LEVELS OF OTHER SERUM ENZYMES
[2017-10-12] MEDS ORDERED: ALBUTEROL SO4 2.5/IPRATROPIUM 0.5 INH SOL 3 ML VIAL.NEB. NEB PRN (12:06)
[2017-10-12] MEDS: COLLAGENASE CLOSTRIDIUM HIST. 30 GRAMS TUBE TP SCH ×2 (12:18→22:27)
--- NOTE | 2017-10-12 12:46 | CONS ---
PULMONARY CONSULTATION DATE OF CONSULTATION: 10/12/2017 REFERRING PHYSICIAN: Mary Boateng MD The patient is an 89-year-old white male with a past medical history which includes atrial fibrillation status post permanent pacemaker, hypertension, hyperlipidemia, diabetes, ASHD, peripheral vascular disease, eyelid CA, [facility] resident transferred to [facility] with increasing shortness of breath and chest congestion. According to the patient and the chart, the patient was sitting in his wheelchair approximately 1-1/2 hours prior to admission. At the time, he apparently slipped out of his chair. He denied any loss of consciousness. Apparently, after this, he started developing increasing respiratory distress, and he had fluid suctioned out of his mouth with some improvement. He started developing progressive respiratory distress. At which time, he was brought into the emergency room. In the ER, he was found in acute respiratory distress, placed on BiPAP with good clinical response. He had chest x-ray performed which revealed bilateral pneumonia. He was transferred to the medical floor for further management. He was evaluated by Infectious Disease, placed on broad-spectrum antibiotics. The patient has a history of smoking many years ago. He denies any history of recent travel. There is no history of DVT or PE in the past. He denies history of COPD or asthma in the past. Of note is that he was noted on admission to have elevated lactate level and positive troponins. He was evaluated by Dr. Pineda for cardiology consultation. PAST MEDICAL HISTORY: Again includes atrial fibrillation status post permanent pacemaker, hypertension, ASHD, peripheral vascular disease, eyelid CA, hyperlipidemia, and diabetes. REVIEW OF SYSTEMS: Positive shortness of breath. Positive cough. Positive chest congestion. No fever. No chills. No nausea. No hemoptysis. No abdominal pain. No lower extremity edema. CURRENT MEDICATIONS: Include digoxin, Alphagan eye drops, piperacillin, Eliquis, Lopressor, Detrol, Lipitor, Silvadene, vitamin C, Ecotrin, Santyl, vitamin C, vitamin D3. PHYSICAL EXAMINATION: General: The patient is an elderly white male, well developed, awake, alert, in no acute distress. Vital Signs: He is currently afebrile. Blood pressure 105/53, respiratory rate is 20, O2 saturation is 97% on nasal O2. HEENT: Normocephalic, atraumatic. Neck: Supple. Heart: Irregular, irregular. Normal S1, S2. Chest: Bilateral crackles. Abdomen: Soft. Bowel sounds are positive. Extremities: No cyanosis or edema. LABORATORY DATA: BUN is 44, creatinine 1.2. Potassium 5.3. Lactate level last was 2.7. Troponin 0.22. BNP is 2613. WBC is 21.3, hemoglobin 12.0, hematocrit 34.9 with a platelet count of 306,000. INR is 1.48. Venous blood gas showed pH of 7.34, pCO2 of 41, and pO2 of 29. Chest x-ray with bilateral infiltrates, small bilateral pleural effusions, increased pulmonary vascular markings bilaterally. IMPRESSION: 1. Acute respiratory failure secondary to possible aspiration pneumonia. 2. Mild congestive heart failure. 3. Positive troponins. 4. Elevated lactate level. 5. Peripheral vascular disease. 6. Atrial fibrillation status post permanent pacemaker. PLAN: Continue antibiotic therapy as per Infectious Disease, obtain followup chest x-rays, inhaled bronchodilators, supplemental O2, echo, Jeffry p.r.n., trend troponins, trend lactate. MELODY ECHOLS M.D. [id number]
[2017-10-12] MEDS ORDERED: ACETAMINOPHEN 325 MG TABLET (FP) ONE (16:28)
[2017-10-12] MEDS: FUROSEMIDE 40 MG/4 ML INJECTABLE VIAL IVPUSH SCH (18:20)
[2017-10-12] MEDS ORDERED: ACETAMINOPHEN 325 MG TABLET (FP) PO ONE (20:30)
[2017-10-12] MEDS: ATORVASTATIN CA 10 MG TABLET (FP) PO SCH (21:33)
[2017-10-12] MEDS: DIGOXIN 250 MCG/5 ML LIQUID PO SCH (22:24)
[2017-10-13] MEDS: PIPERACILLIN/TAZOB 3.375 GM 3.375 GM in DEXTROSE 5%-WATER - 50 ML IVPB SCH ×3 (02:17→17:26)
[2017-10-13] MEDS: INSULIN SLIDING SCALE (NOVOLOG) 1 VIAL SQ SCH ×4 (06:08→21:49)
[2017-10-13 07:34] LABS: EOS % 6.2 % (0-4.5); HEMATOCRIT 29.7 % (35.4-49); HEMOGLOBIN 10.3 GM/dL (11.7-16.9); LYMPH % 17.1 % (8-40); MCH 33.5 pg (25.7-33.7); MCHC 34.6 g/dl (32.0-35.9); MEAN CELL VOLUME 96.9 fl (80-96); MEAN PLT VOLUME 9.2 fl (7.5-11.1); MONO % 10.2 % (3.8-10.2); NEUT % 65.5 % (42.8-82.8); PLATELET COUNT 261 K/MM3 (134-434); RBC 3.07 M/mm3 (4.00-5.60); RDW 14.3 % (11.9-15.9); WHITE BLOOD COUNT 9.1 K/mm3 (4.0-10.0)
[2017-10-13 07:58] LABS: ANION GAP 7 (8-16); BLOOD UREA NITROGEN 42 mg/dL (7-18); CALCIUM 8.1 mg/dL (8.5-10.1); CHLORIDE 105 mmol/L (98-107); CO2 27 mmol/L (21-32); GLUCOSE,RANDOM 125 mg/dL (74-106); POTASSIUM 4.3 mmol/L (3.5-5.1); SODIUM 139 mmol/L (136-145)
[2017-10-13 08:00] LABS: CREATININE 1.2 mg/dL (0.7-1.3)
[2017-10-13] MEDS ORDERED: PIPERACILLIN/TAZOBACTAM 3.375 GM VIAL IVPB ONE (08:34)
[2017-10-13] MEDS ORDERED: DEXTROSE 5%-WATER - 50 ML IVPB ONE (08:35)
--- NOTE | 2017-10-13 10:34 | PN ---
Progress Note, Physician Chief Complaint: feels better No SOB Mild cough - Current Medication List Current Medications: Active Medications Albuterol/Ipratropium (Duoneb -) 1 amp NEB Q4H PRN PRN Reason: SHORTNESS OF BREATH Apixaban (Eliquis -) 5 mg PO BID [facility] Last Admin: 10/12/17 21:33 Dose: 5 mg Ascorbic Acid (Vitamin C -) 500 mg PO DAILY [facility] Last Admin: 10/12/17 10:29 Dose: 500 mg Aspirin (Ecotrin -) 81 mg PO DAILY [facility] Last Admin: 10/12/17 10:29 Dose: 81 mg Atorvastatin Calcium (Lipitor -) 10 mg PO HS [facility] Last Admin: 10/12/17 21:33 Dose: 10 mg Brimonidine Tartrate (Alphagan 0.15% -) 1 drop OU BID [facility] Last Admin: 10/12/17 21:34 Dose: 1 drop Cholecalciferol (Vitamin D3 -) 1,000 unit PO DAILY [facility] Last Admin: 10/12/17 10:28 Dose: 1,000 unit Collagenase (Santyl -) 1 applic TP BID [facility] Last Admin: 10/12/17 22:27 Dose: 1 applic Digoxin (Lanoxin Oral Solution -) 250 mcg PO DAILY [facility] Last Admin: 10/12/17 22:24 Dose: 250 mcg Furosemide (Lasix Injection -) 40 mg IVPUSH DAILY [facility] Last Admin: 10/12/17 18:20 Dose: 40 mg Piperacillin Sod/Tazobactam (Sod 3.375 gm/ Dextrose) 50 mls @ 100 mls/hr IVPB Q8H-IV [facility] PRN Reason: Protocol Last Admin: 10/13/17 02:17 Dose: 100 mls/hr Insulin Aspart (Novolog Vial Sliding Scale -) 1 vial SQ ACHS [facility] PRN Reason: Protocol Last Admin: 10/13/17 06:08 Dose: Not Given Metoprolol Tartrate (Lopressor -) 25 mg PO DAILY [facility] Last Admin: 10/12/17 10:29 Dose: 25 mg Multivitamins/Minerals/Vitamin C (Tab-A-Vit -) 1 tab PO DAILY [facility] Last Admin: 10/12/17 10:29 Dose: 1 tab Silver Sulfadiazine (Silvadene -) 1 applic TP BID [facility] Last Admin: 10/12/17 22:27 Dose: 1 applic Tolterodine Tartrate (Detrol La -) 4 mg PO DAILY [facility] Last Admin: 10/12/17 12:20 Dose: 4 mg - Objective Vital Signs: Vital Signs Temperature 98.6 F 10/13/17 08:45 Pulse Rate 60 10/13/17 08:45 Respiratory Rate 18 10/13/17 08:45 Blood Pressure 100/44 10/13/17 08:45 O2 Sat by Pulse Oximetry (%) 95 10/13/17 08:45 Constitutional: Yes: No Distress Cardiovascular: Yes: Pulse Irregular Respiratory: Yes: Diminished Gastrointestinal: Yes: Normal Bowel Sounds, Soft. No: Tenderness Edema: No Labs: CBC, BMP 10/13/17 07:04 10/13/17 07:04 INR, PTT INR 1.48 (0.82-1.09) H 10/11/17 17:00 Problem List - Problems (1) CHF exacerbation Code(s): I50.9 - HEART FAILURE, UNSPECIFIED (2) Diabetes mellitus Code(s): E11.9 - TYPE 2 DIABETES MELLITUS WITHOUT COMPLICATIONS (3) Pneumonia Code(s): J18.9 - PNEUMONIA, UNSPECIFIED ORGANISM (4) Troponin I above reference range Code(s): R74.8 - ABNORMAL LEVELS OF OTHER SERUM ENZYMES (5) A-fib Code(s): I48.91 - UNSPECIFIED ATRIAL FIBRILLATION Qualifiers: Atrial fibrillation type: permanent Qualified Code(s): I48.2 - Chronic atrial fibrillation (6) Respiratory failure with hypoxia Code(s): J96.91 - RESPIRATORY FAILURE, UNSPECIFIED WITH HYPOXIA Assessment/Plan PLAN CHF -- IV Lasix -- Monitor renal function -- check daily weights Pneumonia -- iv antibiotics -- Nebs as needed -- BIPAP on standby, pt has not used it last night Afib -- on Eliquis -- Rate is controlled . om Digoxin and Lopressor PT eval
--- NOTE | 2017-10-13 10:43 | PN ---
Progress Note (short form) - Note Progress Note: s: no cp sob palps dizzy o: Vital Signs Period Temp Pulse Resp BP Sys/Hernandez Pulse Ox Last 24 Hr 97.5 F-100.4 F 60-71 16-20 100-109/44-57 85-95 nad no jvd jvd flat, irreg, s1s2 2/6 sys murmur at sternal border decreased bs at right base, nl effort no le e/c/c abd nt nd pos bs no jaundice diaphoresis awake alert Current Medications Generic Name Dose Route Start Last Admin Trade Name Freq PRN Reason Stop Dose Admin Albuterol/Ipratropium 1 amp 10/12/17 12:06 Duoneb - NEB Q4H PRN SHORTNESS OF BREATH Apixaban 5 mg 10/11/17 22:30 10/12/17 21:33 Eliquis - PO 5 mg BID [facility] Administration Ascorbic Acid 500 mg 10/12/17 10:00 10/12/17 10:29 Vitamin C - PO 500 mg DAILY [facility] Administration Aspirin 81 mg 10/12/17 10:00 10/12/17 10:29 Ecotrin - PO 81 mg DAILY [facility] Administration Atorvastatin Calcium 10 mg 10/12/17 22:00 10/12/17 21:33 Lipitor - PO 10 mg HS [facility] Administration Brimonidine Tartrate 1 drop 10/11/17 22:30 10/12/17 21:34 Alphagan 0.15% - OU 1 drop BID [facility] Administration Cholecalciferol 1,000 unit 10/12/17 10:00 10/12/17 10:28 Vitamin D3 - PO 1,000 unit DAILY [facility] Administration Collagenase 1 applic 10/12/17 10:00 10/12/17 22:27 Santyl - TP 1 applic BID [facility] Administration Digoxin 250 mcg 10/12/17 21:45 10/12/17 22:24 Lanoxin Oral Solution - PO 250 mcg DAILY [facility] Administration Furosemide 40 mg 10/12/17 18:30 10/12/17 18:20 Lasix Injection - IVPUSH 40 mg DAILY [facility] Administration Piperacillin Sod/Tazobactam 50 mls @ 100 mls/hr 10/12/17 10:00 10/13/17 02:17 Sod 3.375 gm/ Dextrose IVPB 100 mls/hr Q8H-IV [facility] Administration Protocol Insulin Aspart 1 vial 10/13/17 07:00 10/13/17 06:08 Novolog Vial Sliding Scale - SQ Not Given ACHS [facility] Protocol Metoprolol Tartrate 25 mg 10/12/17 10:00 10/12/17 10:29 Lopressor - PO 25 mg DAILY [facility] Administration Multivitamins/Minerals/Vitamin C 1 tab 10/12/17 10:00 10/12/17 10:29 Tab-A-Vit - PO 1 tab DAILY [facility] Administration Silver Sulfadiazine 1 applic 10/12/17 10:00 10/12/17 22:27 Silvadene - TP 1 applic BID [facility] Administration Tolterodine Tartrate 4 mg 10/12/17 10:00 10/12/17 12:20 Detrol La - PO 4 mg DAILY [facility] Administration Laboratory Last Values WBC 9.1 K/mm3 (4.0-10.0) D 10/13/17 07:04 RBC 3.07 M/mm3 (4.00-5.60) L 10/13/17 07:04 Hgb 10.3 GM/dL (11.7-16.9) L D 10/13/17 07:04 Hct 29.7 % (35.4-49) L 10/13/17 07:04 MCV 96.9 fl (80-96) H 10/13/17 07:04 MCH 33.5 pg (25.7-33.7) 10/13/17 07:04 MCHC 34.6 g/dl (32.0-35.9) 10/13/17 07:04 RDW 14.3 % (11.9-15.9) 10/13/17 07:04 Plt Count 261 K/MM3 (134-434) 10/13/17 07:04 MPV 9.2 fl (7.5-11.1) 10/13/17 07:04 Neutrophils % 65.5 % (42.8-82.8) D 10/13/17 07:04 Neutrophils % (Manual) 84.0 % (42.8-82.8) H 10/12/17 06:25 Band Neutrophils % 3.0 % 10/12/17 06:25 Lymphocytes % 17.1 % (8-40) D 10/13/17 07:04 Lymphocytes % (Manual) 7.0 % (8-40) L 10/12/17 06:25 Monocytes % 10.2 % (3.8-10.2) D 10/13/17 07:04 Monocytes % (Manual) 4 % (3.8-10.2) 10/12/17 06:25 Eosinophils % 6.2 % (0-4.5) H D 10/13/17 07:04 Eosinophils % (Manual) 2.0 % (0-4.5) 10/12/17 06:25 Basophils % 1.0 % (0-2.0) 10/13/17 07:04 Platelet Estimate Adequate 10/12/17 06:25 Platelet Comment No clumping noted 10/12/17 06:25 PT with INR 16.70 SEC (9.98-11.88) H 10/11/17 17:00 INR 1.48 (0.82-1.09) H 10/11/17 17:00 VBG pH 7.34 (7.32-7.42) 10/11/17 23:00 POC VBG pCO2 41.9 mmHg (38-52) 10/11/17 23:00 POC VBG pO2 29.9 mmHg (28-48) 10/11/17 23:00 Mixed VBG HCO3 22.4 meq/L (19-25) 10/11/17 23:00 Sodium 139 mmol/L (136-145) 10/13/17 07:04 Potassium 4.3 mmol/L (3.5-5.1) 10/13/17 07:04 Chloride 105 mmol/L (98-107) 10/13/17 07:04 Carbon Dioxide 27 mmol/L (21-32) D 10/13/17 07:04 Anion Gap 7 (8-16) L 10/13/17 07:04 BUN 42 mg/dL (7-18) H 10/13/17 07:04 Creatinine 1.2 mg/dL (0.7-1.3) 10/13/17 07:04 Creat Clearance w eGFR 57.01 (>60) 10/11/17 17:00 POC Glucometer 147 UNITS (80-120) 10/13/17 05:32 Random Glucose 125 mg/dL (74-106) H D 10/13/17 07:04 Lactic Acid 1.9 mmol/L (0.0-2.0) 10/12/17 12:35 Calcium 8.1 mg/dL (8.5-10.1) L 10/13/17 07:04 Phosphorus 4.9 mg/dL (2.5-4.9) 10/12/17 06:25 Magnesium 1.9 mg/dL (1.8-2.4) 10/12/17 06:25 Total Bilirubin 0.2 mg/dL (0.2-1.0) D 10/11/17 17:00 AST 26 U/L (15-37) D 10/11/17 17:00 ALT 13 U/L (12-78) D 10/11/17 17:00 Alkaline Phosphatase 94 U/L (45-117) D 10/11/17 17:00 Creatine Kinase 23 IU/L (39-308) L 10/12/17 12:35 Troponin I 0.12 ng/ml (0.00-0.05) H D 10/12/17 12:35 B-Natriuretic Peptide 2613.62 pg/ml (5-450) H 10/11/17 17:00 Total Protein 6.6 g/dl (6.4-8.2) D 10/11/17 17:00 Albumin 2.7 g/dl (3.4-5.0) L D 10/11/17 17:00 Vancomycin Pre-Dose 8.930 ug/ml (5.0-10.0) 10/12/17 09:30 Digoxin 0.1971 ng/ml (0.8-2.0) L 10/11/17 17:00 ekg: afib, vr 94 bpm. LBBB. tele: demand vpacing, undelrying afib. head ct: no acue pathology. cxr: small bilateral pleural effusions. bilateral mixed reticular and airspace oopacities possibly 2/2 pulmonary edema, although infection/inflammation can't be excluded. echo 08/2017: nl lv size/fn. tds rwma. rv not well seen. valves not well seen, no gross pathology echo 09/2017: nl lv/rv, mild thuan, mild ar, mod as, mild tr, nl rvsp stress test 08/24/17: moderate sized, severe intensity + ischemia in mid anterior wall to apex and inferoapical wall. TID 1.22 A/p 89 m hx cad s/p nstemi 08/2017, dementia, ppm, afib, hld, dm, htn, sent from [place] for sob. resp distress, pna, vs acute chf: -possibly multifactorial with infection and chf contributing - BNP decreased from priors and lactate elevated without other signs of cardiogenic shock so would pursue pulmonary/infecctious etiology. However, cxr c/w mild congestion. Agree with trial of lasix 40 mg IV daily with close monitoring. mod as: -stable borderline increased troponins/known cad with hx of prior nstemi - flat trend and down from 08/2017 (when he had nstemi/demand in the setting of respiratory distress --> medically managed at that time per patient/family preference) Currently trop borderline elevated with flat/decreasing trend. Likely demand in the setting of underlying cad. no suspicion for acs. ekg lbbb. - con't med mgm't with statin, bb, ac with asa (for now). afib: -rate controlled on dig (level ok), and bb. con't. -cont ac with eliquis ppm: -routine outpt monitoring, has appt for check in office (ppm brand is LETICIA/Huey) hld: -cont statin htn: -stable
[2017-10-13] MEDS: METOPROLOL TARTRATE 25 MG TABLET (FP) PO SCH (10:48)
[2017-10-13] MEDS: CHOLECALCIFEROL (VITAMIN D3) 1,000 UNIT TABLET (FP) PO SCH (10:48)
[2017-10-13] MEDS: COLLAGENASE CLOSTRIDIUM HIST. 30 GRAMS TUBE TP SCH ×2 (10:48→23:24)
[2017-10-13] MEDS: APIXABAN 5 MG TABLET PO SCH ×2 (10:48→23:24)
[2017-10-13] MEDS: MULTIVITAMINS (DAILY MVI) TABLET (FP) PO SCH (10:48)
[2017-10-13] MEDS: ASPIRIN COATED 81 MG TABLET.EC PO SCH (10:48)
[2017-10-13] MEDS: ASCORBIC ACID 500 MG TABLET (FP) PO SCH (10:48)
[2017-10-13] MEDS: SILVER SULFADIAZINE 1% TOP CREAM 50 GM JAR TP SCH ×2 (10:48→23:24)
[2017-10-13] MEDS: DIGOXIN 250 MCG/5 ML LIQUID PO SCH (10:49)
[2017-10-13] MEDS: TOLTERODINE TARTRATE LA 4 MG CAP.SR.24H (FP) PO SCH (10:49)
[2017-10-13] MEDS: FUROSEMIDE 40 MG/4 ML INJECTABLE VIAL IVPUSH SCH (10:49)
[2017-10-13] MEDS: BRIMONIDINE TARTRATE 0.15% OPHTHALMIC 5 ML BOTTLE OU SCH ×2 (10:49→23:24)
--- NOTE | 2017-10-13 11:43 | PN ---
Progress Note, Physician History of Present Illness: PULMONARY ALERT,COMFORTABLE ON NASAL O2,FEELING BETTER,SOB IMPROVING - Current Medication List Current Medications: Active Medications Albuterol/Ipratropium (Duoneb -) 1 amp NEB Q4H PRN PRN Reason: SHORTNESS OF BREATH Apixaban (Eliquis -) 5 mg PO BID [facility] Last Admin: 10/13/17 10:48 Dose: 5 mg Ascorbic Acid (Vitamin C -) 500 mg PO DAILY [facility] Last Admin: 10/13/17 10:48 Dose: 500 mg Aspirin (Ecotrin -) 81 mg PO DAILY [facility] Last Admin: 10/13/17 10:48 Dose: 81 mg Atorvastatin Calcium (Lipitor -) 10 mg PO HS [facility] Last Admin: 10/12/17 21:33 Dose: 10 mg Brimonidine Tartrate (Alphagan 0.15% -) 1 drop OU BID [facility] Last Admin: 10/13/17 10:49 Dose: 1 drop Cholecalciferol (Vitamin D3 -) 1,000 unit PO DAILY [facility] Last Admin: 10/13/17 10:48 Dose: 1,000 unit Collagenase (Santyl -) 1 applic TP BID [facility] Last Admin: 10/13/17 10:48 Dose: 1 applic Digoxin (Lanoxin Oral Solution -) 250 mcg PO DAILY [facility] Last Admin: 10/13/17 10:49 Dose: 250 mcg Furosemide (Lasix Injection -) 40 mg IVPUSH DAILY [facility] Last Admin: 10/13/17 10:49 Dose: 40 mg Piperacillin Sod/Tazobactam (Sod 3.375 gm/ Dextrose) 50 mls @ 100 mls/hr IVPB Q8H-IV [facility] PRN Reason: Protocol Last Admin: 10/13/17 10:44 Dose: 100 mls/hr Insulin Aspart (Novolog Vial Sliding Scale -) 1 vial SQ ACHS [facility] PRN Reason: Protocol Last Admin: 10/13/17 06:08 Dose: Not Given Metoprolol Tartrate (Lopressor -) 25 mg PO DAILY [facility] Last Admin: 10/13/17 10:48 Dose: 25 mg Multivitamins/Minerals/Vitamin C (Tab-A-Vit -) 1 tab PO DAILY [facility] Last Admin: 10/13/17 10:48 Dose: 1 tab Silver Sulfadiazine (Silvadene -) 1 applic TP BID [facility] Last Admin: 10/13/17 10:48 Dose: 1 applic Tolterodine Tartrate (Detrol La -) 4 mg PO DAILY [facility] Last Admin: 10/13/17 10:49 Dose: 4 mg - Objective Vital Signs: Vital Signs Temperature 98.6 F 10/13/17 08:45 Pulse Rate 62 10/13/17 10:49 Respiratory Rate 18 10/13/17 08:45 Blood Pressure 100/44 10/13/17 08:45 O2 Sat by Pulse Oximetry (%) 95 10/13/17 08:45 Constitutional: Yes: Well Nourished, Calm Eyes: Yes: WNL HENT: Yes: WNL Neck: Yes: WNL Cardiovascular: Yes: Pulse Irregular, S1, S2 Respiratory: Yes: Rales, Rhonchi (BIBASILAR RALES AND FEW RHONCHI) Gastrointestinal: Yes: Normal Bowel Sounds, Soft Extremities: Yes: WNL Edema: No Labs: CBC, BMP 10/13/17 07:04 10/13/17 07:04 INR, PTT INR 1.48 (0.82-1.09) H 10/11/17 17:00 Problem List - Problems (1) Lactate blood increase Code(s): R79.89 - OTHER SPECIFIED ABNORMAL FINDINGS OF BLOOD CHEMISTRY (2) DVT prophylaxis Code(s): FTC7166 - (3) Fall at detention Code(s): W19.XXXA - UNSPECIFIED FALL, INITIAL ENCOUNTER; Y92.129 - UN[facility] PLACE IN [facility] (4) HLD (hyperlipidemia) Code(s): E78.5 - HYPERLIPIDEMIA, UNSPECIFIED (5) HTN (hypertension) Code(s): I10 - ESSENTIAL (PRIMARY) HYPERTENSION (6) History of pacemaker Code(s): Z95.0 - PRESENCE OF CARDIAC PACEMAKER (7) Pneumonia Code(s): J18.9 - PNEUMONIA, UNSPECIFIED ORGANISM (8) A-fib Code(s): I48.91 - UNSPECIFIED ATRIAL FIBRILLATION Qualifiers: Atrial fibrillation type: permanent Qualified Code(s): I48.2 - Chronic atrial fibrillation (9) Acute hypoxemic respiratory failure Code(s): J96.01 - ACUTE RESPIRATORY FAILURE WITH HYPOXIA (10) Elevated troponin I level Code(s): R74.8 - ABNORMAL LEVELS OF OTHER SERUM ENZYMES (11) Respiratory failure with hypoxia Code(s): J96.91 - RESPIRATORY FAILURE, UNSPECIFIED WITH HYPOXIA (12) Troponin I above reference range Code(s): R74.8 - ABNORMAL LEVELS OF OTHER SERUM ENZYMES (13) CHF exacerbation Code(s): I50.9 - HEART FAILURE, UNSPECIFIED Assessment/Plan IMP ACUTE HYPOXEMIC RESPIRATORY FAILURE LIKELY PNEUMONIA CHF +TROPONINS LIKELY DEMAND ISCHEMIA ELEVATED LACTATE LEVEL NORMAL AFIB S/P PPM PVD HLD H/O EYELID CA PLAN ABX PER ID O2 NIPPV IF PT DEVELOPES INCREASED RESPIRATORY DISTRESS INHALED BRONCHODILATORS LASIX PER CARDIOLOGY ECHO CHEST CT DR ECHOLS Problem List - Problems (1) Lactate blood increase Code(s): R79.89 - OTHER SPECIFIED ABNORMAL FINDINGS OF BLOOD CHEMISTRY (2) DVT prophylaxis Code(s): BMF8802 - (3) Fall at detention Code(s): W19.XXXA - UNSPECIFIED FALL, INITIAL ENCOUNTER; Y92.129 - [facility]ACE [facility] (4) HLD (hyperlipidemia) Code(s): E78.5 - HYPERLIPIDEMIA, UNSPECIFIED (5) HTN (hypertension) Code(s): I10 - ESSENTIAL (PRIMARY) HYPERTENSION (6) History of pacemaker Code(s): Z95.0 - PRESENCE OF CARDIAC PACEMAKER (7) Pneumonia Code(s): J18.9 - PNEUMONIA, UNSPECIFIED ORGANISM (8) A-fib Code(s): I48.91 - UNSPECIFIED ATRIAL FIBRILLATION Qualifiers: Atrial fibrillation type: permanent Qualified Code(s): I48.2 - Chronic atrial fibrillation (9) Acute hypoxemic respiratory failure Code(s): J96.01 - ACUTE RESPIRATORY FAILURE WITH HYPOXIA (10) Elevated troponin I level Code(s): R74.8 - ABNORMAL LEVELS OF OTHER SERUM ENZYMES (11) Respiratory failure with hypoxia Code(s): J96.91 - RESPIRATORY FAILURE, UNSPECIFIED WITH HYPOXIA (12) Troponin I above reference range Code(s): R74.8 - ABNORMAL LEVELS OF OTHER SERUM ENZYMES
--- NOTE | 2017-10-13 17:31 | PN ---
Progress Note, Physician History of Present Illness: Reports productive cough No c/o chest pain/ dyspnea Temps, WBC improved - Current Medication List Current Medications: Active Medications Albuterol/Ipratropium (Duoneb -) 1 amp NEB Q4H PRN PRN Reason: SHORTNESS OF BREATH Apixaban (Eliquis -) 5 mg PO BID [facility] Last Admin: 10/13/17 10:48 Dose: 5 mg Ascorbic Acid (Vitamin C -) 500 mg PO DAILY [facility] Last Admin: 10/13/17 10:48 Dose: 500 mg Aspirin (Ecotrin -) 81 mg PO DAILY [facility] Last Admin: 10/13/17 10:48 Dose: 81 mg Atorvastatin Calcium (Lipitor -) 10 mg PO HS [facility] Last Admin: 10/12/17 21:33 Dose: 10 mg Brimonidine Tartrate (Alphagan 0.15% -) 1 drop OU BID [facility] Last Admin: 10/13/17 10:49 Dose: 1 drop Cholecalciferol (Vitamin D3 -) 1,000 unit PO DAILY [facility] Last Admin: 10/13/17 10:48 Dose: 1,000 unit Collagenase (Santyl -) 1 applic TP BID [facility] Last Admin: 10/13/17 10:48 Dose: 1 applic Digoxin (Lanoxin Oral Solution -) 250 mcg PO DAILY [facility] Last Admin: 10/13/17 10:49 Dose: 250 mcg Furosemide (Lasix Injection -) 40 mg IVPUSH DAILY [facility] Last Admin: 10/13/17 10:49 Dose: 40 mg Piperacillin Sod/Tazobactam (Sod 3.375 gm/ Dextrose) 50 mls @ 100 mls/hr IVPB Q8H-IV [facility] PRN Reason: Protocol Last Admin: 10/13/17 17:26 Dose: 100 mls/hr Insulin Aspart (Novolog Vial Sliding Scale -) 1 vial SQ ACHS [facility] PRN Reason: Protocol Last Admin: 10/13/17 17:25 Dose: Not Given Metoprolol Tartrate (Lopressor -) 25 mg PO DAILY [facility] Last Admin: 10/13/17 10:48 Dose: 25 mg Multivitamins/Minerals/Vitamin C (Tab-A-Vit -) 1 tab PO DAILY [facility] Last Admin: 10/13/17 10:48 Dose: 1 tab Silver Sulfadiazine (Silvadene -) 1 applic TP BID [facility] Last Admin: 10/13/17 10:48 Dose: 1 applic Tolterodine Tartrate (Detrol La -) 4 mg PO DAILY [facility] Last Admin: 10/13/17 10:49 Dose: 4 mg - Objective Vital Signs: Vital Signs Temperature 98.4 F 10/13/17 14:42 Pulse Rate 59 L 10/13/17 14:42 Respiratory Rate 18 10/13/17 14:42 Blood Pressure 122/42 10/13/17 14:42 O2 Sat by Pulse Oximetry (%) 95 10/13/17 08:45 Constitutional: Yes: No Distress Eyes: Yes: Conjunctiva Clear Cardiovascular: Yes: Regular Rate and Rhythm, S1, S2 Respiratory: Yes: Diminished Gastrointestinal: Yes: Normal Bowel Sounds, Soft Labs: CBC, BMP 10/13/17 07:04 10/13/17 07:04 INR, PTT INR 1.48 (0.82-1.09) H 10/11/17 17:00 Assessment/Plan R/O HCAP Fever/ leukocytosis- improved Lactic acidosis- resolved CHF Await c/s Continue zosyn
--- NOTE | 2017-10-13 22:31 | PN ---
Progress Note, Physician Chief Complaint: Reports productive cough - Current Medication List Current Medications: Active Medications Albuterol/Ipratropium (Duoneb -) 1 amp NEB Q4H PRN PRN Reason: SHORTNESS OF BREATH Apixaban (Eliquis -) 5 mg PO BID [facility] Last Admin: 10/13/17 10:48 Dose: 5 mg Ascorbic Acid (Vitamin C -) 500 mg PO DAILY [facility] Last Admin: 10/13/17 10:48 Dose: 500 mg Aspirin (Ecotrin -) 81 mg PO DAILY [facility] Last Admin: 10/13/17 10:48 Dose: 81 mg Atorvastatin Calcium (Lipitor -) 10 mg PO HS [facility] Last Admin: 10/12/17 21:33 Dose: 10 mg Brimonidine Tartrate (Alphagan 0.15% -) 1 drop OU BID [facility] Last Admin: 10/13/17 10:49 Dose: 1 drop Cholecalciferol (Vitamin D3 -) 1,000 unit PO DAILY [facility] Last Admin: 10/13/17 10:48 Dose: 1,000 unit Collagenase (Santyl -) 1 applic TP BID [facility] Last Admin: 10/13/17 10:48 Dose: 1 applic Digoxin (Lanoxin Oral Solution -) 250 mcg PO DAILY [facility] Last Admin: 10/13/17 10:49 Dose: 250 mcg Furosemide (Lasix Injection -) 40 mg IVPUSH DAILY [facility] Last Admin: 10/13/17 10:49 Dose: 40 mg Piperacillin Sod/Tazobactam (Sod 3.375 gm/ Dextrose) 50 mls @ 100 mls/hr IVPB Q8H-IV [facility] PRN Reason: Protocol Last Admin: 10/13/17 17:26 Dose: 100 mls/hr Insulin Aspart (Novolog Vial Sliding Scale -) 1 vial SQ ACHS BHAVIN PRN Reason: Protocol Last Admin: 10/13/17 21:49 Dose: Not Given Metoprolol Tartrate (Lopressor -) 25 mg PO DAILY [facility] Last Admin: 10/13/17 10:48 Dose: 25 mg Multivitamins/Minerals/Vitamin C (Tab-A-Vit -) 1 tab PO DAILY [facility] Last Admin: 10/13/17 10:48 Dose: 1 tab Silver Sulfadiazine (Silvadene -) 1 applic TP BID [facility] Last Admin: 10/13/17 10:48 Dose: 1 applic Tolterodine Tartrate (Detrol La -) 4 mg PO DAILY [facility]AVIN Last Admin: 10/13/17 10:49 Dose: 4 mg - Objective Vital Signs: Vital Signs Temperature 98.3 F 10/13/17 19:45 Pulse Rate 63 10/13/17 19:45 Respiratory Rate 20 10/13/17 19:45 Blood Pressure 101/44 10/13/17 19:45 O2 Sat by Pulse Oximetry (%) 95 10/13/17 20:45 Labs: CBC, BMP 10/13/17 07:04 10/13/17 07:04 INR, PTT INR 1.48 (0.82-1.09) H 10/11/17 17:00
[2017-10-13] MEDS: ATORVASTATIN CA 10 MG TABLET (FP) PO SCH (23:24)
[2017-10-14] MEDS ORDERED: DEXTROSE 5%-WATER - 50 ML IVPB ONE ×2 (01:05→09:55)
[2017-10-14] MEDS ORDERED: PIPERACILLIN/TAZOBACTAM 3.375 GM VIAL IVPB ONE ×2 (01:05→09:55)
[2017-10-14] MEDS: PIPERACILLIN/TAZOB 3.375 GM 3.375 GM in DEXTROSE 5%-WATER - 50 ML IVPB SCH ×2 (01:11→10:08)
[2017-10-14] MEDS: INSULIN SLIDING SCALE (NOVOLOG) 1 VIAL SQ SCH ×4 (06:41→21:49)
[2017-10-14 07:10] LABS: BASO % 0.9 % (0-2.0); EOS % 7.7 % (0-4.5); HEMATOCRIT 33.5 % (35.4-49); HEMOGLOBIN 11.2 GM/dL (11.7-16.9); LYMPH % 17.4 % (8-40); MCH 32.9 pg (25.7-33.7); MCHC 33.5 g/dl (32.0-35.9); MEAN PLT VOLUME 8.7 fl (7.5-11.1); MONO % 9.3 % (3.8-10.2); NEUT % 64.7 % (42.8-82.8); PLATELET COUNT 262 K/MM3 (134-434); RBC 3.42 M/mm3 (4.00-5.60); RDW 14.4 % (11.9-15.9); WHITE BLOOD COUNT 8.9 K/mm3 (4.0-10.0)
[2017-10-14 07:51] LABS: CHLORIDE 103 mmol/L (98-107); POTASSIUM 4.5 mmol/L (3.5-5.1); SODIUM 141 mmol/L (136-145)
[2017-10-14 07:57] LABS: ANION GAP 12 (8-16); BLOOD UREA NITROGEN 33 mg/dL (7-18); CALCIUM 8.9 mg/dL (8.5-10.1); CO2 26 mmol/L (21-32); CREATININE 1.2 mg/dL (0.7-1.3); GLUCOSE,RANDOM 127 mg/dL (74-106)
[2017-10-14] MEDS ORDERED: PT OWN MED DRAWER 7, Y5N ONE ×3 (09:54→21:32)
[2017-10-14] MEDS: MULTIVITAMINS (DAILY MVI) TABLET (FP) PO SCH (10:09)
[2017-10-14] MEDS: METOPROLOL TARTRATE 25 MG TABLET (FP) PO SCH (10:09)
[2017-10-14] MEDS: ASPIRIN COATED 81 MG TABLET.EC PO SCH (10:09)
[2017-10-14] MEDS: APIXABAN 5 MG TABLET PO SCH ×2 (10:09→21:42)
[2017-10-14] MEDS: CHOLECALCIFEROL (VITAMIN D3) 1,000 UNIT TABLET (FP) PO SCH (10:09)
[2017-10-14] MEDS: ASCORBIC ACID 500 MG TABLET (FP) PO SCH (10:09)
[2017-10-14] MEDS: TOLTERODINE TARTRATE LA 4 MG CAP.SR.24H (FP) PO SCH (10:10)
[2017-10-14] MEDS: DIGOXIN 250 MCG/5 ML LIQUID PO SCH (10:10)
[2017-10-14] MEDS: BRIMONIDINE TARTRATE 0.15% OPHTHALMIC 5 ML BOTTLE OU SCH ×2 (10:12→21:42)
[2017-10-14] MEDS: FUROSEMIDE 40 MG/4 ML INJECTABLE VIAL IVPUSH SCH (10:41)
--- NOTE | 2017-10-14 10:44 | PN ---
Progress Note (short form) - Note Progress Note: s: no cp sob palps dizzy o: Vital Signs Period Temp Pulse Resp BP Sys/Hernandez Pulse Ox Last 24 Hr 97.4 F-98.5 F 59-67 18-20 100-131/42-68 95-96 nad no jvd jvd flat, irreg, s1s2 2/6 sys murmur at sternal border decreased bs at right base, nl effort no le e/c/c abd nt nd pos bs no jaundice diaphoresis awake alert Current Medications Generic Name Dose Route Start Last Admin Trade Name Freq PRN Reason Stop Dose Admin Albuterol/Ipratropium 1 amp 10/12/17 12:06 Duoneb - NEB Q4H PRN SHORTNESS OF BREATH Apixaban 5 mg 10/11/17 22:30 10/14/17 10:09 Eliquis - PO 5 mg BID [facility] Administration Ascorbic Acid 500 mg 10/12/17 10:00 10/14/17 10:09 Vitamin C - PO 500 mg DAILY [facility] Administration Aspirin 81 mg 10/12/17 10:00 10/14/17 10:09 Ecotrin - PO 81 mg DAILY [facility] Administration Atorvastatin Calcium 10 mg 10/12/17 22:00 10/13/17 23:24 Lipitor - PO 10 mg HS [facility] Administration Brimonidine Tartrate 1 drop 10/11/17 22:30 10/14/17 10:12 Alphagan 0.15% - OU 1 drop BID [facility] Administration Cholecalciferol 1,000 unit 10/12/17 10:00 10/14/17 10:09 Vitamin D3 - PO 1,000 unit DAILY [facility] Administration Collagenase 1 applic 10/12/17 10:00 10/13/17 23:24 Santyl - TP 1 applic BID [facility] Administration Digoxin 250 mcg 10/12/17 21:45 10/14/17 10:10 Lanoxin Oral Solution - PO Not Given DAILY [facility] Furosemide 40 mg 10/12/17 18:30 10/14/17 10:41 Lasix Injection - IVPUSH 40 mg DAILY [facility] Administration Piperacillin Sod/Tazobactam 50 mls @ 100 mls/hr 10/12/17 10:00 10/14/17 10:08 Sod 3.375 gm/ Dextrose IVPB 100 mls/hr Q8H-IV [facility] Administration Protocol Insulin Aspart 1 vial 10/13/17 07:00 10/14/17 06:41 Novolog Vial Sliding Scale - SQ 2 units ACHS [facility] Administration Protocol Metoprolol Tartrate 25 mg 10/12/17 10:00 10/14/17 10:09 Lopressor - PO 25 mg DAILY [facility] Administration Multivitamins/Minerals/Vitamin C 1 tab 10/12/17 10:00 10/14/17 10:09 Tab-A-Vit - PO 1 tab DAILY [facility] Administration Silver Sulfadiazine 1 applic 10/12/17 10:00 10/13/17 23:24 Silvadene - TP 1 applic BID [facility] Administration Tolterodine Tartrate 4 mg 10/12/17 10:00 10/14/17 10:10 Detrol La - PO 4 mg DAILY [facility] Administration CBC, BMP 10/14/17 05:35 10/14/17 05:35 ekg: afib, vr 94 bpm. LBBB. tele: demand vpacing, undelrying afib. head ct: no acue pathology. cxr: small bilateral pleural effusions. bilateral mixed reticular and airspace oopacities possibly 2/2 pulmonary edema, although infection/inflammation can't be excluded. echo 08/2017: nl lv size/fn. tds rwma. rv not well seen. valves not well seen, no gross pathology echo 09/2017: nl lv/rv, mild thuan, mild ar, mod as, mild tr, nl rvsp stress test 08/24/17: moderate sized, severe intensity + ischemia in mid anterior wall to apex and inferoapical wall. TID 1.22 A/p 89 m hx cad s/p nstemi 08/2017, dementia, ppm, afib, hld, dm, htn, sent from [facility] for sob. resp distress, pna, vs acute chf: -possibly multifactorial with infection and chf contributing - improving with abx and iv lasix, continue mod as: -stable borderline increased troponins/known cad with hx of prior nstemi - flat trend and down from 08/2017 (when he had nstemi/demand in the setting of respiratory distress --> medically managed at that time per patient/family preference) Currently trop borderline elevated with flat/decreasing trend. Likely demand in the setting of underlying cad. no suspicion for acs. ekg lbbb. - con't med mgm't with statin, bb, ac with asa. afib: -rate controlled on dig (level ok), and bb. con't. -cont ac with eliquis ppm: -routine outpt monitoring, has appt for check in office (ppm brand is LETICIA/Huey) hld: -cont statin htn: -stable
--- NOTE | 2017-10-14 12:10 | PN ---
Progress Note, Physician Chief Complaint: feels better No SOB Mild cough - Current Medication List Current Medications: Active Medications Albuterol/Ipratropium (Duoneb -) 1 amp NEB Q4H PRN PRN Reason: SHORTNESS OF BREATH Apixaban (Eliquis -) 5 mg PO BID [facility] Last Admin: 10/14/17 10:09 Dose: 5 mg Ascorbic Acid (Vitamin C -) 500 mg PO DAILY [facility] Last Admin: 10/14/17 10:09 Dose: 500 mg Aspirin (Ecotrin -) 81 mg PO DAILY [facility] Last Admin: 10/14/17 10:09 Dose: 81 mg Atorvastatin Calcium (Lipitor -) 10 mg PO HS [facility] Last Admin: 10/13/17 23:24 Dose: 10 mg Brimonidine Tartrate (Alphagan 0.15% -) 1 drop OU BID [facility] Last Admin: 10/14/17 10:12 Dose: 1 drop Cholecalciferol (Vitamin D3 -) 1,000 unit PO DAILY [facility] Last Admin: 10/14/17 10:09 Dose: 1,000 unit Collagenase (Santyl -) 1 applic TP BID [facility] Last Admin: 10/13/17 23:24 Dose: 1 applic Digoxin (Lanoxin Oral Solution -) 250 mcg PO DAILY [facility] Last Admin: 10/14/17 10:10 Dose: Not Given Furosemide (Lasix Injection -) 40 mg IVPUSH DAILY [facility] Last Admin: 10/14/17 10:41 Dose: 40 mg Piperacillin Sod/Tazobactam (Sod 3.375 gm/ Dextrose) 50 mls @ 100 mls/hr IVPB Q8H-IV [facility] PRN Reason: Protocol Last Admin: 10/14/17 10:08 Dose: 100 mls/hr Insulin Aspart (Novolog Vial Sliding Scale -) 1 vial SQ ACHS [facility] PRN Reason: Protocol Last Admin: 10/14/17 06:41 Dose: 2 units Metoprolol Tartrate (Lopressor -) 25 mg PO DAILY [facility] Last Admin: 10/14/17 10:09 Dose: 25 mg Multivitamins/Minerals/Vitamin C (Tab-A-Vit -) 1 tab PO DAILY [facility] Last Admin: 10/14/17 10:09 Dose: 1 tab Silver Sulfadiazine (Silvadene -) 1 applic TP BID [facility] Last Admin: 10/13/17 23:24 Dose: 1 applic Tolterodine Tartrate (Detrol La -) 4 mg PO DAILY [facility] Last Admin: 10/14/17 10:10 Dose: 4 mg - Objective Vital Signs: Vital Signs Temperature 97.8 F 10/14/17 10:23 Pulse Rate 59 L 10/14/17 10:23 Respiratory Rate 20 10/14/17 10:23 Blood Pressure 131/60 10/14/17 10:23 O2 Sat by Pulse Oximetry (%) 96 10/14/17 09:00 Constitutional: Yes: No Distress Cardiovascular: Yes: Pulse Irregular Respiratory: Yes: Diminished. No: Rales, Rhonchi Gastrointestinal: Yes: Normal Bowel Sounds, Soft. No: Tenderness Edema: No Labs: CBC, BMP 10/14/17 05:35 10/14/17 05:35 INR, PTT INR 1.48 (0.82-1.09) H 10/11/17 17:00 Problem List - Problems (1) CHF exacerbation Code(s): I50.9 - HEART FAILURE, UNSPECIFIED (2) Diabetes mellitus Code(s): E11.9 - TYPE 2 DIABETES MELLITUS WITHOUT COMPLICATIONS (3) Pneumonia Code(s): J18.9 - PNEUMONIA, UNSPECIFIED ORGANISM (4) Troponin I above reference range Code(s): R74.8 - ABNORMAL LEVELS OF OTHER SERUM ENZYMES (5) A-fib Code(s): I48.91 - UNSPECIFIED ATRIAL FIBRILLATION Qualifiers: Atrial fibrillation type: permanent Qualified Code(s): I48.2 - Chronic atrial fibrillation (6) Respiratory failure with hypoxia Code(s): J96.91 - RESPIRATORY FAILURE, UNSPECIFIED WITH HYPOXIA Assessment/Plan PLAN CHF -- IV Lasix--> change to PO -- Monitor renal function -- check daily weights Pneumonia -- iv antibiotics -- Nebs as needed -- BIPAP on standby, pt has not used it last night Afib -- on Eliquis -- Rate is controlled . om Digoxin and Lopressor PT eval better dc planning
[2017-10-14] MEDS: COLLAGENASE CLOSTRIDIUM HIST. 30 GRAMS TUBE TP SCH ×2 (12:19→21:42)
[2017-10-14] MEDS: SILVER SULFADIAZINE 1% TOP CREAM 50 GM JAR TP SCH ×2 (12:19→21:43)
--- NOTE | 2017-10-14 12:48 | PN ---
Progress Note (short form) - Note Progress Note: PULMONARY States breathing is improving. Less cough. No fevers. Last Vital Signs Temp Pulse Resp BP Pulse Ox 97.8 F 59 L 20 131/60 96 10/14/17 10:23 10/14/17 10:23 10/14/17 10:23 10/14/17 10:23 10/14/17 09:00 Gen: NAD at rest Heart: RRR Lung: decreased breath sounds at the bases Abd: soft, nontender Ext: no edema CBC, BMP 10/14/17 05:35 10/14/17 05:35 Active Medications Albuterol/Ipratropium (Duoneb -) 1 amp NEB Q4H PRN PRN Reason: SHORTNESS OF BREATH Apixaban (Eliquis -) 5 mg PO BID [facility] Last Admin: 10/14/17 10:09 Dose: 5 mg Ascorbic Acid (Vitamin C -) 500 mg PO DAILY [facility] Last Admin: 10/14/17 10:09 Dose: 500 mg Aspirin (Ecotrin -) 81 mg PO DAILY [facility] Last Admin: 10/14/17 10:09 Dose: 81 mg Atorvastatin Calcium (Lipitor -) 10 mg PO HS [facility] Last Admin: 10/13/17 23:24 Dose: 10 mg Brimonidine Tartrate (Alphagan 0.15% -) 1 drop OU BID [facility] Last Admin: 10/14/17 10:12 Dose: 1 drop Cholecalciferol (Vitamin D3 -) 1,000 unit PO DAILY [facility] Last Admin: 10/14/17 10:09 Dose: 1,000 unit Collagenase (Santyl -) 1 applic TP BID [facility] Last Admin: 10/14/17 12:19 Dose: 1 applic Digoxin (Lanoxin Oral Solution -) 250 mcg PO DAILY [facility] Last Admin: 10/14/17 10:10 Dose: Not Given Furosemide (Lasix Injection -) 40 mg IVPUSH DAILY [facility] Piperacillin Sod/Tazobactam (Sod 3.375 gm/ Dextrose) 50 mls @ 100 mls/hr IVPB Q8H-IV [facility] PRN Reason: Protocol Last Admin: 10/14/17 10:08 Dose: 100 mls/hr Insulin Aspart (Novolog Vial Sliding Scale -) 1 vial SQ ACHS [facility] PRN Reason: Protocol Last Admin: 10/14/17 12:16 Dose: 2 units Metoprolol Tartrate (Lopressor -) 25 mg PO DAILY [facility] Last Admin: 10/14/17 10:09 Dose: 25 mg Multivitamins/Minerals/Vitamin C (Tab-A-Vit -) 1 tab PO DAILY [facility] Last Admin: 10/14/17 10:09 Dose: 1 tab Silver Sulfadiazine (Silvadene -) 1 applic TP BID [facility] Last Admin: 10/14/17 12:19 Dose: 1 applic Tolterodine Tartrate (Detrol La -) 4 mg PO DAILY [facility] Last Admin: 10/14/17 10:10 Dose: 4 mg A/P Acute Hypoxic Respirtory Failure Pneumonia CHF Atrial Fibrillation +Troponins likely Demand Ischemia Lactic Acidosis resolved PAD Hyperlipidemia - continue antibiotics - continue lasix - monitor urine output, creatinine - O2 to keep Spo2 >90% - echocardiogram - rate controlled - continue anticoagulation - DVT prophylaxis
--- NOTE | 2017-10-14 15:32 | PN ---
Progress Note, Physician History of Present Illness: Awake but confused Supine in bed Reports productive cough No c/o chest pain/ dyspnea Temps, WBC improved Afebrile WBC WNL BC no growth Sputum yeast - Current Medication List Current Medications: Active Medications Albuterol/Ipratropium (Duoneb -) 1 amp NEB Q4H PRN PRN Reason: SHORTNESS OF BREATH Apixaban (Eliquis -) 5 mg PO BID [facility] Last Admin: 10/14/17 10:09 Dose: 5 mg Ascorbic Acid (Vitamin C -) 500 mg PO DAILY [facility] Last Admin: 10/14/17 10:09 Dose: 500 mg Aspirin (Ecotrin -) 81 mg PO DAILY [facility] Last Admin: 10/14/17 10:09 Dose: 81 mg Atorvastatin Calcium (Lipitor -) 10 mg PO HS [facility] Last Admin: 10/13/17 23:24 Dose: 10 mg Brimonidine Tartrate (Alphagan 0.15% -) 1 drop OU BID [facility] Last Admin: 10/14/17 10:12 Dose: 1 drop Cholecalciferol (Vitamin D3 -) 1,000 unit PO DAILY [facility] Last Admin: 10/14/17 10:09 Dose: 1,000 unit Collagenase (Santyl -) 1 applic TP BID [facility] Last Admin: 10/14/17 12:19 Dose: 1 applic Digoxin (Lanoxin Oral Solution -) 250 mcg PO DAILY [facility] Last Admin: 10/14/17 10:10 Dose: Not Given Furosemide (Lasix Injection -) 40 mg IVPUSH DAILY [facility] Piperacillin Sod/Tazobactam (Sod 3.375 gm/ Dextrose) 50 mls @ 100 mls/hr IVPB Q8H-IV [facility] PRN Reason: Protocol Last Admin: 10/14/17 10:08 Dose: 100 mls/hr Insulin Aspart (Novolog Vial Sliding Scale -) 1 vial SQ ACHS [facility] PRN Reason: Protocol Last Admin: 10/14/17 12:16 Dose: 2 units Metoprolol Tartrate (Lopressor -) 25 mg PO DAILY [facility] Last Admin: 10/14/17 10:09 Dose: 25 mg Multivitamins/Minerals/Vitamin C (Tab-A-Vit -) 1 tab PO DAILY [facility] Last Admin: 10/14/17 10:09 Dose: 1 tab Silver Sulfadiazine (Silvadene -) 1 applic TP BID [facility] Last Admin: 10/14/17 12:19 Dose: 1 applic Tolterodine Tartrate (Detrol La -) 4 mg PO DAILY [facility] Last Admin: 10/14/17 10:10 Dose: 4 mg - Objective Vital Signs: Vital Signs Temperature 97.8 F 10/14/17 10:23 Pulse Rate 59 L 10/14/17 10:23 Respiratory Rate 20 10/14/17 10:23 Blood Pressure 131/60 10/14/17 10:23 O2 Sat by Pulse Oximetry (%) 96 10/14/17 09:00 Constitutional: Yes: No Distress Eyes: Yes: Conjunctiva Clear Cardiovascular: Yes: Regular Rate and Rhythm, Murmur, S1, S2 Respiratory: Yes: Diminished Gastrointestinal: Yes: Normal Bowel Sounds, Soft. No: Tenderness Edema: No Labs: CBC, BMP 10/14/17 05:35 10/14/17 05:35 INR, PTT INR 1.48 (0.82-1.09) H 10/11/17 17:00 Assessment/Plan R/O HCAP Fever/ leukocytosis- improved Lactic acidosis- resolved CHF Substitute ceftriaxone No treatment for yeast in sputum
[2017-10-14] MEDS: CEFTRIAXONE IN IS-OSM DEXTROSE 2 GM/50 ML BAG IVPB SCH (17:14)
[2017-10-14] MEDS: ATORVASTATIN CA 10 MG TABLET (FP) PO SCH (21:42)
[2017-10-15] MEDS: INSULIN SLIDING SCALE (NOVOLOG) 1 VIAL SQ SCH ×4 (06:07→22:17)
[2017-10-15] MEDS ORDERED: PT OWN MED DRAWER 7, Y5N ONE (08:49)
[2017-10-15] MEDS: METOPROLOL TARTRATE 25 MG TABLET (FP) PO SCH (09:06)
[2017-10-15] MEDS: DIGOXIN 250 MCG/5 ML LIQUID PO SCH (09:20)
[2017-10-15] MEDS: APIXABAN 5 MG TABLET PO SCH ×2 (09:20→22:16)
[2017-10-15] MEDS: BRIMONIDINE TARTRATE 0.15% OPHTHALMIC 5 ML BOTTLE OU SCH ×2 (09:20→22:17)
[2017-10-15] MEDS: MULTIVITAMINS (DAILY MVI) TABLET (FP) PO SCH (09:20)
[2017-10-15] MEDS: ASCORBIC ACID 500 MG TABLET (FP) PO SCH (09:20)
[2017-10-15] MEDS: CHOLECALCIFEROL (VITAMIN D3) 1,000 UNIT TABLET (FP) PO SCH (09:20)
[2017-10-15] MEDS: TOLTERODINE TARTRATE LA 4 MG CAP.SR.24H (FP) PO SCH (09:20)
[2017-10-15] MEDS: ASPIRIN COATED 81 MG TABLET.EC PO SCH (09:21)
[2017-10-15] MEDS: CEFTRIAXONE IN IS-OSM DEXTROSE 2 GM/50 ML BAG IVPB SCH (09:21)
[2017-10-15] MEDS ORDERED: FUROSEMIDE 40 MG TABLET (FP) PO SCH (10:00)
[2017-10-15] MEDS ORDERED: FUROSEMIDE 40 MG/4 ML INJECTABLE VIAL IVPUSH SCH (10:00)
--- NOTE | 2017-10-15 11:20 | PN ---
Progress Note, Physician History of Present Illness: PULMONARY ALERT,FEELING BETTER,-RESP DISTRESS - Current Medication List Current Medications: Active Medications Albuterol/Ipratropium (Duoneb -) 1 amp NEB Q4H PRN PRN Reason: SHORTNESS OF BREATH Apixaban (Eliquis -) 5 mg PO BID [facility] Last Admin: 10/15/17 09:20 Dose: 5 mg Ascorbic Acid (Vitamin C -) 500 mg PO DAILY [facility] Last Admin: 10/15/17 09:20 Dose: 500 mg Aspirin (Ecotrin -) 81 mg PO DAILY [facility] Last Admin: 10/15/17 09:21 Dose: 81 mg Atorvastatin Calcium (Lipitor -) 10 mg PO HS [facility] Last Admin: 10/14/17 21:42 Dose: 10 mg Brimonidine Tartrate (Alphagan 0.15% -) 1 drop OU BID [facility] Last Admin: 10/15/17 09:20 Dose: 1 drop Cholecalciferol (Vitamin D3 -) 1,000 unit PO DAILY [facility] Last Admin: 10/15/17 09:20 Dose: 1,000 unit Collagenase (Santyl -) 1 applic TP BID [facility] Last Admin: 10/14/17 21:42 Dose: 1 applic Digoxin (Lanoxin Oral Solution -) 250 mcg PO DAILY [facility] Last Admin: 10/15/17 09:20 Dose: 250 mcg Furosemide (Lasix Injection -) 40 mg IVPUSH DAILY [facility] Last Admin: 10/15/17 09:20 Dose: 40 mg CEFTRIAXONE IN IS-OSM DEXTROSE (Ceftriaxone 2 Gm-D5w Bag) 2 gm in 50 mls @ 100 mls/hr IVPB DAILY [facility] Last Admin: 10/15/17 09:21 Dose: 100 mls/hr Insulin Aspart (Novolog Vial Sliding Scale -) 1 vial SQ ACHS [facility] PRN Reason: Protocol Last Admin: 10/15/17 06:07 Dose: Not Given Metoprolol Tartrate (Lopressor -) 25 mg PO DAILY [facility] Last Admin: 10/15/17 09:06 Dose: Not Given Multivitamins/Minerals/Vitamin C (Tab-A-Vit -) 1 tab PO DAILY [facility] Last Admin: 10/15/17 09:20 Dose: 1 tab Silver Sulfadiazine (Silvadene -) 1 applic TP BID [facility] Last Admin: 10/14/17 21:43 Dose: 1 applic Tolterodine Tartrate (Detrol La -) 4 mg PO DAILY [facility] Last Admin: 10/15/17 09:20 Dose: 4 mg - Objective Vital Signs: Vital Signs Temperature 97.9 F 10/15/17 09:00 Pulse Rate 60 10/15/17 09:20 Respiratory Rate 20 10/15/17 09:00 Blood Pressure 105/46 10/15/17 09:00 O2 Sat by Pulse Oximetry (%) 99 10/15/17 09:00 Constitutional: Yes: Well Nourished, Calm Eyes: Yes: WNL HENT: Yes: WNL Neck: Yes: WNL Cardiovascular: Yes: Pulse Irregular, S1, S2 Respiratory: Yes: Rales (FEW BIBASIALR RALES) Gastrointestinal: Yes: Normal Bowel Sounds, Soft Extremities: Yes: WNL Edema: No Labs: CBC, BMP Problem List - Problems (1) Lactate blood increase Code(s): R79.89 - OTHER SPECIFIED ABNORMAL FINDINGS OF BLOOD CHEMISTRY (2) DVT prophylaxis Code(s): [id number] - (3) Fall at halfway Code(s): W19.XXXA - UNSPECIFIED FALL, INITIAL ENCOUNTER; Y92.129 - UNSP PLACE IN [facility] (4) HLD (hyperlipidemia) Code(s): E78.5 - HYPERLIPIDEMIA, UNSPECIFIED (5) HTN (hypertension) Code(s): I10 - ESSENTIAL (PRIMARY) HYPERTENSION (6) History of pacemaker Code(s): Z95.0 - PRESENCE OF CARDIAC PACEMAKER (7) Pneumonia Code(s): J18.9 - PNEUMONIA, UNSPECIFIED ORGANISM (8) A-fib Code(s): I48.91 - UNSPECIFIED ATRIAL FIBRILLATION Qualifiers: Atrial fibrillation type: permanent Qualified Code(s): I48.2 - Chronic atrial fibrillation (9) Acute hypoxemic respiratory failure Code(s): J96.01 - ACUTE RESPIRATORY FAILURE WITH HYPOXIA (10) Elevated troponin I level Code(s): R74.8 - ABNORMAL LEVELS OF OTHER SERUM ENZYMES (11) Respiratory failure with hypoxia Code(s): J96.91 - RESPIRATORY FAILURE, UNSPECIFIED WITH HYPOXIA (12) Troponin I above reference range Code(s): R74.8 - ABNORMAL LEVELS OF OTHER SERUM ENZYMES (13) CHF exacerbation Code(s): I50.9 - HEART FAILURE, UNSPECIFIED Assessment/Plan IMP ACUTE HYPOXEMIC RESPIRATORY FAILURE IMPROVED LIKELY PNEUMONIA CHF +TROPONINS LIKELY DEMAND ISCHEMIA ELEVATED LACTATE LEVEL NORMAL AFIB S/P PPM PVD HLD H/O EYELID CA PLAN ABX PER ID O2 NIPPV IF PT DEVELOPES INCREASED RESPIRATORY DISTRESS INHALED BRONCHODILATORS LASIX PER CARDIOLOGY DR ECHOLS Problem List - Problems (1) Lactate blood increase Code(s): R79.89 - OTHER SPECIFIED ABNORMAL FINDINGS OF BLOOD CHEMISTRY (2) DVT prophylaxis Code(s): [id number] - (3) Fall at halfway Code(s): W19.XXXA - UNSPECIFIED FALL, INITIAL ENCOUNTER; Y92.129 - UNSP PLACE IN [facility] (4) HLD (hyperlipidemia) Code(s): E78.5 - HYPERLIPIDEMIA, UNSPECIFIED (5) HTN (hypertension) Code(s): I10 - ESSENTIAL (PRIMARY) HYPERTENSION (6) History of pacemaker Code(s): Z95.0 - PRESENCE OF CARDIAC PACEMAKER (7) Pneumonia Code(s): J18.9 - PNEUMONIA, UNSPECIFIED ORGANISM (8) A-fib Code(s): I48.91 - UNSPECIFIED ATRIAL FIBRILLATION Qualifiers: Atrial fibrillation type: permanent Qualified Code(s): I48.2 - Chronic atrial fibrillation (9) Acute hypoxemic respiratory failure Code(s): J96.01 - ACUTE RESPIRATORY FAILURE WITH HYPOXIA (10) Elevated troponin I level Code(s): R74.8 - ABNORMAL LEVELS OF OTHER SERUM ENZYMES (11) Respiratory failure with hypoxia Code(s): J96.91 - RESPIRATORY FAILURE, UNSPECIFIED WITH HYPOXIA (12) Troponin I above reference range Code(s): R74.8 - ABNORMAL LEVELS OF OTHER SERUM ENZYMES
[2017-10-15] MEDS: COLLAGENASE CLOSTRIDIUM HIST. 30 GRAMS TUBE TP SCH (11:23)
[2017-10-15] MEDS: SILVER SULFADIAZINE 1% TOP CREAM 50 GM JAR TP SCH ×2 (11:24→22:22)
[2017-10-15] MEDS ORDERED: INSULIN (NOVOLOG) ASPART 100 UNITS/ML 10ML VIAL ONE ×2 (11:30→21:27)
--- NOTE | 2017-10-15 11:32 | PN ---
Progress Note (short form) - Note Progress Note: s: no cp sob palps dizzy o: Vital Signs Period Temp Pulse Resp BP Sys/Hernandez Pulse Ox Last 24 Hr 97.5 F-98.4 F 58-65 20-20 101-128/46-59 96-99 nad no jvd jvd flat, irreg, s1s2 2/6 sys murmur at sternal border decreased bs at right base, nl effort no le e/c/c abd nt nd pos bs no jaundice diaphoresis awake alert Current Medications Generic Name Dose Route Start Last Admin Trade Name Freq PRN Reason Stop Dose Admin Albuterol/Ipratropium 1 amp 10/12/17 12:06 Duoneb - NEB Q4H PRN SHORTNESS OF BREATH Apixaban 5 mg 10/11/17 22:30 10/15/17 09:20 Eliquis - PO 5 mg BID [facility] Administration Ascorbic Acid 500 mg 10/12/17 10:00 10/15/17 09:20 Vitamin C - PO 500 mg DAILY [facility] Administration Aspirin 81 mg 10/12/17 10:00 10/15/17 09:21 Ecotrin - PO 81 mg DAILY [facility] Administration Atorvastatin Calcium 10 mg 10/12/17 22:00 10/14/17 21:42 Lipitor - PO 10 mg HS [facility] Administration Brimonidine Tartrate 1 drop 10/11/17 22:30 10/15/17 09:20 Alphagan 0.15% - OU 1 drop BID [facility] Administration Cholecalciferol 1,000 unit 10/12/17 10:00 10/15/17 09:20 Vitamin D3 - PO 1,000 unit DAILY [facility] Administration Collagenase 1 applic 10/12/17 10:00 10/15/17 11:23 Santyl - TP Not Given BID [facility] Digoxin 250 mcg 10/12/17 21:45 10/15/17 09:20 Lanoxin Oral Solution - PO 250 mcg DAILY [facility] Administration Furosemide 40 mg 10/15/17 10:00 10/15/17 09:20 Lasix Injection - IVPUSH 40 mg DAILY [facility] Administration CEFTRIAXONE IN IS-OSM DEXTROSE 2 gm in 50 mls @ 100 mls/hr 10/14/17 16:30 12/27 09:21 Ceftriaxone 2 Gm-D5w Bag IVPB 100 mls/hr DAILY [facility] Administration Insulin Aspart 1 vial 10/13/17 07:00 10/15/17 06:07 Novolog Vial Sliding Scale - SQ Not Given ACHS [facility] Protocol Metoprolol Tartrate 25 mg 10/12/17 10:00 10/15/17 09:06 Lopressor - PO Not Given DAILY [facility] Multivitamins/Minerals/Vitamin C 1 tab 10/12/17 10:00 10/15/17 09:20 Tab-A-Vit - PO 1 tab DAILY [facility] Administration Silver Sulfadiazine 1 applic 10/12/17 10:00 10/15/17 11:24 Silvadene - TP 1 applic BID [facility] Administration Tolterodine Tartrate 4 mg 10/12/17 10:00 10/15/17 09:20 Detrol La - PO 4 mg DAILY [facility] Administration CBC, BMP 10/14/17 05:35 10/14/17 05:35 ekg: afib, vr 94 bpm. LBBB. tele: demand vpacing, undelrying afib. head ct: no acue pathology. cxr: small bilateral pleural effusions. bilateral mixed reticular and airspace oopacities possibly 2/2 pulmonary edema, although infection/inflammation can't be excluded. echo 08/2017: nl lv size/fn. tds rwma. rv not well seen. valves not well seen, no gross pathology echo 09/2017: nl lv/rv, mild thuan, mild ar, mod as, mild tr, nl rvsp stress test 08/24/17: moderate sized, severe intensity + ischemia in mid anterior wall to apex and inferoapical wall. TID 1.22 A/p 89 m hx cad s/p nstemi 08/2017, dementia, ppm, afib, hld, dm, htn, sent from [facility] for sob. resp distress, pna, vs acute chf: -possibly multifactorial with infection and chf contributing - improving with abx and iv lasix, continue-->will change to lasix 40 po qd for maintenance tomorrow mod as: -stable borderline increased troponins/known cad with hx of prior nstemi - flat trend and down from 08/2017 (when he had nstemi/demand in the setting of respiratory distress --> medically managed at that time per patient/family preference) Currently trop borderline elevated with flat/decreasing trend. Likely demand in the setting of underlying cad. no suspicion for acs. ekg lbbb. - con't med mgm't with statin, bb, ac with asa. afib: -rate controlled on dig (level ok), and bb. con't. -cont ac with eliquis ppm: -routine outpt monitoring, has appt for check in office (ppm brand is LETICIA/[facility]) hld: -cont statin htn: -stable
--- NOTE | 2017-10-15 11:44 | PN ---
Progress Note (short form) - Note Progress Note: awake/ comfortable cough + afebrile chart reviewed. all f/u noted. bc -ve so far yeast + sputum Vital Signs Temp 97.9 F 10/15/17 09:00 Pulse 60 10/15/17 09:20 Resp 20 10/15/17 09:00 BP 105/46 10/15/17 09:00 Pulse Ox 99 10/15/17 09:00 Intake & Output 10/14/17 10/14/17 10/15/17 11:59 23:59 11:59 Intake Total 520 250 Balance 520 250 Intake: IV 20 Left FA #20 10/11/17 10 Right AC #22 10/11/17 10 IVPB 100 Oral 400 250 Other: Voiding Method Incontinent Incontinent Diaper # Unmeasured Voids Void 2 2 Bowel Movement No Active Medications Albuterol/Ipratropium (Duoneb -) 1 amp NEB Q4H PRN PRN Reason: SHORTNESS OF BREATH Apixaban (Eliquis -) 5 mg PO BID [facility] Last Admin: 10/15/17 09:20 Dose: 5 mg Ascorbic Acid (Vitamin C -) 500 mg PO DAILY [facility] Last Admin: 10/15/17 09:20 Dose: 500 mg Aspirin (Ecotrin -) 81 mg PO DAILY [facility] Last Admin: 10/15/17 09:21 Dose: 81 mg Atorvastatin Calcium (Lipitor -) 10 mg PO HS [facility] Last Admin: 10/14/17 21:42 Dose: 10 mg Brimonidine Tartrate (Alphagan 0.15% -) 1 drop OU BID [facility] Last Admin: 10/15/17 09:20 Dose: 1 drop Cholecalciferol (Vitamin D3 -) 1,000 unit PO DAILY [facility] Last Admin: 10/15/17 09:20 Dose: 1,000 unit Collagenase (Santyl -) 1 applic TP BID [facility] Last Admin: 10/15/17 11:23 Dose: Not Given Digoxin (Lanoxin Oral Solution -) 250 mcg PO DAILY [facility] Last Admin: 10/15/17 09:20 Dose: 250 mcg Furosemide (Lasix Injection -) 40 mg IVPUSH DAILY [facility] Stop: 10/15/17 14:00 Last Admin: 10/15/17 09:20 Dose: 40 mg Furosemide (Lasix -) 40 mg PO DAILY [facility] CEFTRIAXONE IN IS-OSM DEXTROSE (Ceftriaxone 2 Gm-D5w Bag) 2 gm in 50 mls @ 100 mls/hr IVPB DAILY [facility] Last Admin: 10/15/17 09:21 Dose: 100 mls/hr Insulin Aspart (Novolog Vial Sliding Scale -) 1 vial SQ ACHS [facility] PRN Reason: Protocol Last Admin: 10/15/17 06:07 Dose: Not Given Metoprolol Tartrate (Lopressor -) 25 mg PO DAILY [facility] Last Admin: 10/15/17 09:06 Dose: Not Given Multivitamins/Minerals/Vitamin C (Tab-A-Vit -) 1 tab PO DAILY [facility] Last Admin: 10/15/17 09:20 Dose: 1 tab Silver Sulfadiazine (Silvadene -) 1 applic TP BID [facility] Last Admin: 10/15/17 11:24 Dose: 1 applic Tolterodine Tartrate (Detrol La -) 4 mg PO DAILY [facility] Last Admin: 10/15/17 09:20 Dose: 4 mg CBC, BMP 10/14/17 05:35 10/14/17 05:35 Microbiology 10/11/17 18:35 Blood Culture - Preliminary Blood - Peripheral Venous NO GROWTH OBTAINED AFTER 72 HOURS, INCUBATION TO CONTINUE FOR 2 DAYS. 10/11/17 18:35 Blood Culture - Preliminary Blood - Peripheral Venous NO GROWTH OBTAINED AFTER 72 HOURS, INCUBATION TO CONTINUE FOR 2 DAYS. 10/13/17 08:00 Gram Stain - Final Sputum - Expectorated Sputum Culture - Preliminary Yeast Like Organism Physical Constitutional: Yes: No Distress. awake. comfortable. Cardiovascular: Yes: Pulse Irregular Respiratory: Yes: Diminished. No: Rales, Rhonchi. Gastrointestinal: Yes: Normal Bowel Sounds, Soft. No: Tenderness Edema: No Problem List - Problems (1) CHF exacerbation Code(s): I50.9 - HEART FAILURE, UNSPECIFIED (2) Diabetes mellitus Code(s): E11.9 - TYPE 2 DIABETES MELLITUS WITHOUT COMPLICATIONS (3) Pneumonia Code(s): J18.9 - PNEUMONIA, UNSPECIFIED ORGANISM (4) Troponin I above reference range Code(s): R74.8 - ABNORMAL LEVELS OF OTHER SERUM ENZYMES (5) A-fib Code(s): I48.91 - UNSPECIFIED ATRIAL FIBRILLATION Qualifiers: Atrial fibrillation type: permanent Qualified Code(s): I48.2 - Chronic atrial fibrillation (6) Respiratory failure with hypoxia Code(s): J96.91 - RESPIRATORY FAILURE, UNSPECIFIED WITH HYPOXIA Assessment/Plan clinically stable continue abx continue other meds daily oob- chair pt discussed with nursing staf will follow
--- NOTE | 2017-10-15 17:33 | PN ---
Progress Note, Physician History of Present Illness: Awake but confused Supine in bed Reports productive cough Nurse reports blood-streaked sputum No c/o chest pain/ dyspnea Temps, WBC improved WBC WNL Afebrile BC no growth Sputum yeast - Current Medication List Current Medications: Active Medications Albuterol/Ipratropium (Duoneb -) 1 amp NEB Q4H PRN PRN Reason: SHORTNESS OF BREATH Apixaban (Eliquis -) 5 mg PO BID [facility] Last Admin: 10/15/17 09:20 Dose: 5 mg Ascorbic Acid (Vitamin C -) 500 mg PO DAILY [facility] Last Admin: 10/15/17 09:20 Dose: 500 mg Aspirin (Ecotrin -) 81 mg PO DAILY [facility] Last Admin: 10/15/17 09:21 Dose: 81 mg Atorvastatin Calcium (Lipitor -) 10 mg PO HS [facility] Last Admin: 10/14/17 21:42 Dose: 10 mg Brimonidine Tartrate (Alphagan 0.15% -) 1 drop OU BID [facility] Last Admin: 10/15/17 09:20 Dose: 1 drop Cholecalciferol (Vitamin D3 -) 1,000 unit PO DAILY [facility] Last Admin: 10/15/17 09:20 Dose: 1,000 unit Digoxin (Lanoxin Oral Solution -) 250 mcg PO DAILY [facility] Last Admin: 10/15/17 09:20 Dose: 250 mcg Furosemide (Lasix -) 40 mg PO DAILY [facility] CEFTRIAXONE IN IS-OSM DEXTROSE (Ceftriaxone 2 Gm-D5w Bag) 2 gm in 50 mls @ 100 mls/hr IVPB DAILY [facility] Last Admin: 10/15/17 09:21 Dose: 100 mls/hr Insulin Aspart (Novolog Vial Sliding Scale -) 1 vial SQ ACHS [facility] PRN Reason: Protocol Last Admin: 10/15/17 16:22 Dose: Not Given Metoprolol Tartrate (Lopressor -) 25 mg PO DAILY [facility] Last Admin: 10/15/17 09:06 Dose: Not Given Multivitamins/Minerals/Vitamin C (Tab-A-Vit -) 1 tab PO DAILY [facility] Last Admin: 10/15/17 09:20 Dose: 1 tab Silver Sulfadiazine (Silvadene -) 1 applic TP BID [facility] Last Admin: 10/15/17 11:24 Dose: 1 applic Tolterodine Tartrate (Detrol La -) 4 mg PO DAILY [facility] Last Admin: 10/15/17 09:20 Dose: 4 mg - Objective Vital Signs: Vital Signs Temperature 97.9 F 10/15/17 14:00 Pulse Rate 62 10/15/17 14:00 Respiratory Rate 20 10/15/17 09:00 Blood Pressure 110/63 10/15/17 14:00 O2 Sat by Pulse Oximetry (%) 98 10/15/17 16:44 Constitutional: Yes: No Distress Cardiovascular: Yes: Regular Rate and Rhythm, S1, S2 Respiratory: Yes: Diminished Gastrointestinal: Yes: Normal Bowel Sounds, Soft Labs: CBC, BMP 10/14/17 05:35 10/14/17 05:35 INR, PTT INR 1.48 (0.82-1.09) H 10/11/17 17:00 Assessment/Plan R/O HCAP Fever/ leukocytosis- improved Lactic acidosis- resolved CHF Continue ceftriaxone No treatment for yeast in sputum
[2017-10-15] MEDS: ATORVASTATIN CA 10 MG TABLET (FP) PO SCH (22:16)
[2017-10-16] MEDS ORDERED: INSULIN (NOVOLOG) ASPART 100 UNITS/ML 10ML VIAL ONE (04:43)
[2017-10-16] MEDS: INSULIN SLIDING SCALE (NOVOLOG) 1 VIAL SQ SCH ×4 (06:21→23:26)
--- NOTE | 2017-10-16 09:37 | PN ---
Progress Note, Physician History of Present Illness: PULMONARY ALERT,NAD,-SOB,-CP - Current Medication List Current Medications: Active Medications Albuterol/Ipratropium (Duoneb -) 1 amp NEB Q4H PRN PRN Reason: SHORTNESS OF BREATH Apixaban (Eliquis -) 5 mg PO BID [facility] Last Admin: 10/15/17 22:16 Dose: 5 mg Ascorbic Acid (Vitamin C -) 500 mg PO DAILY [facility] Last Admin: 10/15/17 09:20 Dose: 500 mg Aspirin (Ecotrin -) 81 mg PO DAILY [facility] Last Admin: 10/15/17 09:21 Dose: 81 mg Atorvastatin Calcium (Lipitor -) 10 mg PO HS [facility] Last Admin: 10/15/17 22:16 Dose: 10 mg Brimonidine Tartrate (Alphagan 0.15% -) 1 drop OU BID [facility] Last Admin: 10/15/17 22:17 Dose: 1 drop Cholecalciferol (Vitamin D3 -) 1,000 unit PO DAILY [facility] Last Admin: 10/15/17 09:20 Dose: 1,000 unit Digoxin (Lanoxin Oral Solution -) 250 mcg PO DAILY [facility] Last Admin: 10/15/17 09:20 Dose: 250 mcg Furosemide (Lasix -) 40 mg PO DAILY [facility] CEFTRIAXONE IN IS-OSM DEXTROSE (Ceftriaxone 2 Gm-D5w Bag) 2 gm in 50 mls @ 100 mls/hr IVPB DAILY [facility] Last Admin: 10/15/17 09:21 Dose: 100 mls/hr Insulin Aspart (Novolog Vial Sliding Scale -) 1 vial SQ ACHS [facility] PRN Reason: Protocol Last Admin: 10/16/17 06:21 Dose: 2 units Metoprolol Tartrate (Lopressor -) 25 mg PO DAILY [facility] Last Admin: 10/15/17 09:06 Dose: Not Given Multivitamins/Minerals/Vitamin C (Tab-A-Vit -) 1 tab PO DAILY [facility] Last Admin: 10/15/17 09:20 Dose: 1 tab Silver Sulfadiazine (Silvadene -) 1 applic TP BID [facility] Last Admin: 10/15/17 22:22 Dose: 1 applic Tolterodine Tartrate (Detrol La -) 4 mg PO DAILY [facility] Last Admin: 10/15/17 09:20 Dose: 4 mg - Objective Vital Signs: Vital Signs Temperature 97.8 F 10/16/17 08:49 Pulse Rate 60 04/07/18 08:49 Respiratory Rate 20 10/16/17 08:49 Blood Pressure 110/55 10/16/17 08:49 O2 Sat by Pulse Oximetry (%) 98 10/16/17 02:10 Constitutional: Yes: Well Nourished, Calm Eyes: Yes: WNL HENT: Yes: WNL Neck: Yes: WNL Cardiovascular: Yes: Pulse Irregular, S1, S2 Respiratory: Yes: Rales (FEW BIBASILAR RALES) Gastrointestinal: Yes: Normal Bowel Sounds, Soft Extremities: Yes: WNL Edema: No Labs: CBC, BMP Problem List - Problems (1) Lactate blood increase Code(s): R79.89 - OTHER SPECIFIED ABNORMAL FINDINGS OF BLOOD CHEMISTRY (2) DVT prophylaxis Code(s): [id number] - (3) Fall at correction Code(s): W19.XXXA - UNSPECIFIED FALL, INITIAL ENCOUNTER; Y92.129 - UNSP PLACE IN LONGTERM PLACE (4) HLD (hyperlipidemia) Code(s): E78.5 - HYPERLIPIDEMIA, UNSPECIFIED (5) HTN (hypertension) Code(s): I10 - ESSENTIAL (PRIMARY) HYPERTENSION (6) History of pacemaker Code(s): Z95.0 - PRESENCE OF CARDIAC PACEMAKER (7) Pneumonia Code(s): J18.9 - PNEUMONIA, UNSPECIFIED ORGANISM (8) A-fib Code(s): I48.91 - UNSPECIFIED ATRIAL FIBRILLATION Qualifiers: Atrial fibrillation type: permanent Qualified Code(s): I48.2 - Chronic atrial fibrillation (9) Acute hypoxemic respiratory failure Code(s): J96.01 - ACUTE RESPIRATORY FAILURE WITH HYPOXIA (10) Elevated troponin I level Code(s): R74.8 - ABNORMAL LEVELS OF OTHER SERUM ENZYMES (11) Respiratory failure with hypoxia Code(s): J96.91 - RESPIRATORY FAILURE, UNSPECIFIED WITH HYPOXIA (12) Troponin I above reference range Code(s): R74.8 - ABNORMAL LEVELS OF OTHER SERUM ENZYMES Assessment/Plan IMP ACUTE HYPOXEMIC RESPIRATORY FAILURE IMPROVED LIKELY PNEUMONIA CHF +TROPONINS LIKELY DEMAND ISCHEMIA ELEVATED LACTATE LEVEL NORMAL AFIB S/P PPM PVD HLD H/O EYELID CA PLAN ABX PER ID O2 INHALED BRONCHODILATORS BABATUNDE ECHOLS Problem List - Problems (1) Lactate blood increase Code(s): R79.89 - OTHER SPECIFIED ABNORMAL FINDINGS OF BLOOD CHEMISTRY (2) DVT prophylaxis Code(s): [id number] - (3) Fall at correction Code(s): W19.XXXA - UNSPECIFIED FALL, INITIAL ENCOUNTER; Y92.129 - UNSP PLACE IN LONGTERM PLACE (4) HLD (hyperlipidemia) Code(s): E78.5 - HYPERLIPIDEMIA, UNSPECIFIED (5) HTN (hypertension) Code(s): I10 - ESSENTIAL (PRIMARY) HYPERTENSION (6) History of pacemaker Code(s): Z95.0 - PRESENCE OF CARDIAC PACEMAKER (7) Pneumonia Code(s): J18.9 - PNEUMONIA, UNSPECIFIED ORGANISM (8) A-fib Code(s): I48.91 - UNSPECIFIED ATRIAL FIBRILLATION Qualifiers: Atrial fibrillation type: permanent Qualified Code(s): I48.2 - Chronic atrial fibrillation (9) Acute hypoxemic respiratory failure Code(s): J96.01 - ACUTE RESPIRATORY FAILURE WITH HYPOXIA (10) Elevated troponin I level Code(s): R74.8 - ABNORMAL LEVELS OF OTHER SERUM ENZYMES (11) Respiratory failure with hypoxia Code(s): J96.91 - RESPIRATORY FAILURE, UNSPECIFIED WITH HYPOXIA (12) Troponin I above reference range Code(s): R74.8 - ABNORMAL LEVELS OF OTHER SERUM ENZYMES
[2017-10-16] MEDS ORDERED: PT OWN MED DRAWER 7, Y5N ONE ×3 (09:39→21:25)
[2017-10-16] MEDS: METOPROLOL TARTRATE 25 MG TABLET (FP) PO SCH (09:41)
[2017-10-16] MEDS: ASCORBIC ACID 500 MG TABLET (FP) PO SCH (09:41)
[2017-10-16] MEDS: MULTIVITAMINS (DAILY MVI) TABLET (FP) PO SCH (09:41)
[2017-10-16] MEDS: CHOLECALCIFEROL (VITAMIN D3) 1,000 UNIT TABLET (FP) PO SCH (09:41)
[2017-10-16] MEDS: FUROSEMIDE 40 MG TABLET (FP) PO SCH (09:41)
[2017-10-16] MEDS: APIXABAN 5 MG TABLET PO SCH ×2 (09:41→22:24)
[2017-10-16] MEDS: ASPIRIN COATED 81 MG TABLET.EC PO SCH (09:41)
[2017-10-16] MEDS: BRIMONIDINE TARTRATE 0.15% OPHTHALMIC 5 ML BOTTLE OU SCH ×2 (09:42→22:05)
[2017-10-16] MEDS: TOLTERODINE TARTRATE LA 4 MG CAP.SR.24H (FP) PO SCH (09:42)
[2017-10-16] MEDS: DIGOXIN 250 MCG/5 ML LIQUID PO SCH (09:43)
[2017-10-16] MEDS: SILVER SULFADIAZINE 1% TOP CREAM 50 GM JAR TP SCH ×2 (09:44→22:05)
[2017-10-16] MEDS: CEFTRIAXONE 2 GM in DEXTROSE 5%-WATER - 100 ML IVPB SCH (12:12)
--- NOTE | 2017-10-16 13:35 | PN ---
Progress Note, Physician Chief Complaint: feels well No SOB Mild cough - Current Medication List Current Medications: Active Medications Albuterol/Ipratropium (Duoneb -) 1 amp NEB Q4H PRN PRN Reason: SHORTNESS OF BREATH Apixaban (Eliquis -) 5 mg PO BID [facility] Last Admin: 10/16/17 09:41 Dose: 5 mg Ascorbic Acid (Vitamin C -) 500 mg PO DAILY [facility] Last Admin: 10/16/17 09:41 Dose: 500 mg Aspirin (Ecotrin -) 81 mg PO DAILY [facility] Last Admin: 10/16/17 09:41 Dose: 81 mg Atorvastatin Calcium (Lipitor -) 10 mg PO HS [facility] Last Admin: 10/15/17 22:16 Dose: 10 mg Brimonidine Tartrate (Alphagan 0.15% -) 1 drop OU BID [facility] Last Admin: 10/16/17 09:42 Dose: 1 drop Cholecalciferol (Vitamin D3 -) 1,000 unit PO DAILY [facility] Last Admin: 10/16/17 09:41 Dose: 1,000 unit Digoxin (Lanoxin Oral Solution -) 250 mcg PO DAILY [facility] Last Admin: 10/16/17 09:43 Dose: 250 mcg Furosemide (Lasix -) 40 mg PO DAILY [facility] Last Admin: 10/16/17 09:41 Dose: 40 mg Ceftriaxone Sodium 2 gm/ (Dextrose) 100 mls @ 200 mls/hr IVPB DAILY [facility] Stop: 10/20/17 10:29 Last Admin: 10/16/17 12:12 Dose: 200 mls/hr Insulin Aspart (Novolog Vial Sliding Scale -) 1 vial SQ ACHS [facility] PRN Reason: Protocol Last Admin: 10/16/17 12:12 Dose: 4 units Metoprolol Tartrate (Lopressor -) 25 mg PO DAILY [facility] Last Admin: 10/16/17 09:41 Dose: 25 mg Multivitamins/Minerals/Vitamin C (Tab-A-Vit -) 1 tab PO DAILY [facility] Last Admin: 10/16/17 09:41 Dose: 1 tab Silver Sulfadiazine (Silvadene -) 1 applic TP BID [facility] Last Admin: 10/16/17 09:44 Dose: 1 applic Tolterodine Tartrate (Detrol La -) 4 mg PO DAILY [facility] Last Admin: 10/16/17 09:42 Dose: 4 mg - Objective Vital Signs: Vital Signs Temperature 97.8 F 10/16/17 08:49 Pulse Rate 60 10/16/17 09:43 Respiratory Rate 20 10/16/17 08:49 Blood Pressure 110/55 10/16/17 08:49 O2 Sat by Pulse Oximetry (%) 98 10/16/17 02:10 Constitutional: Yes: No Distress Cardiovascular: Yes: Pulse Irregular Respiratory: Yes: Diminished Gastrointestinal: Yes: Normal Bowel Sounds, Soft. No: Palpable Mass Edema: No Labs: CBC, BMP 10/14/17 05:35 10/14/17 05:35 INR, PTT INR 1.48 (0.82-1.09) H 10/11/17 17:00 Problem List - Problems (1) CHF exacerbation Code(s): I50.9 - HEART FAILURE, UNSPECIFIED (2) Diabetes mellitus Code(s): E11.9 - TYPE 2 DIABETES MELLITUS WITHOUT COMPLICATIONS (3) Pneumonia Code(s): J18.9 - PNEUMONIA, UNSPECIFIED ORGANISM (4) Troponin I above reference range Code(s): R74.8 - ABNORMAL LEVELS OF OTHER SERUM ENZYMES (5) A-fib Code(s): I48.91 - UNSPECIFIED ATRIAL FIBRILLATION Qualifiers: Atrial fibrillation type: permanent Qualified Code(s): I48.2 - Chronic atrial fibrillation (6) Respiratory failure with hypoxia Code(s): J96.91 - RESPIRATORY FAILURE, UNSPECIFIED WITH HYPOXIA Assessment/Plan PLAN CHF -- IV Lasix--> change to PO -- Monitor renal function-->stable -- check daily weights Pneumonia -- iv antibiotics -- Nebs as needed -- BIPAP on standby, pt has not used it since admission Afib -- on Eliquis -- Rate is controlled . om Digoxin and Lopressor PT eval better dc planning
--- NOTE | 2017-10-16 16:33 | PN ---
Progress Note (short form) - Note Progress Note: CC: s: no cp sob palps dizzy o: Current Medications Albuterol/Ipratropium (Duoneb -) 1 amp NEB Q4H PRN PRN Reason: SHORTNESS OF BREATH Apixaban (Eliquis -) 5 mg PO BID [facility] Last Admin: 10/16/17 09:41 Dose: 5 mg Ascorbic Acid (Vitamin C -) 500 mg PO DAILY [facility] Last Admin: 10/16/17 09:41 Dose: 500 mg Aspirin (Ecotrin -) 81 mg PO DAILY [facility] Last Admin: 10/16/17 09:41 Dose: 81 mg Atorvastatin Calcium (Lipitor -) 10 mg PO HS [facility] Last Admin: 10/15/17 22:16 Dose: 10 mg Brimonidine Tartrate (Alphagan 0.15% -) 1 drop OU BID [facility] Last Admin: 10/16/17 09:42 Dose: 1 drop Cholecalciferol (Vitamin D3 -) 1,000 unit PO DAILY [facility] Last Admin: 10/16/17 09:41 Dose: 1,000 unit Digoxin (Lanoxin Oral Solution -) 250 mcg PO DAILY [facility] Last Admin: 10/16/17 09:43 Dose: 250 mcg Furosemide (Lasix -) 40 mg PO DAILY [facility] Last Admin: 10/16/17 09:41 Dose: 40 mg Ceftriaxone Sodium 2 gm/ (Dextrose) 100 mls @ 200 mls/hr IVPB DAILY [facility] Stop: 10/20/17 10:29 Last Admin: 10/16/17 12:12 Dose: 200 mls/hr Insulin Aspart (Novolog Vial Sliding Scale -) 1 vial SQ ACHS [facility] PRN Reason: Protocol Last Admin: 10/16/17 12:12 Dose: 4 units Metoprolol Tartrate (Lopressor -) 25 mg PO DAILY [facility] Last Admin: 10/16/17 09:41 Dose: 25 mg Multivitamins/Minerals/Vitamin C (Tab-A-Vit -) 1 tab PO DAILY [facility] Last Admin: 10/16/17 09:41 Dose: 1 tab Silver Sulfadiazine (Silvadene -) 1 applic TP BID [facility] Last Admin: 10/16/17 09:44 Dose: 1 applic Tolterodine Tartrate (Detrol La -) 4 mg PO DAILY [facility] Last Admin: 10/16/17 09:42 Dose: 4 mg Vital Signs - 24 hr 10/15/17 10/15/17 10/15/17 16:44 17:00 20:30 Temperature 99.3 F 98.8 F Pulse Rate 61 61 Respiratory 20 18 Rate Blood Pressure 117/48 113/50 O2 Sat by Pulse 98 97 Oximetry (%) 10/15/17 10/16/17 10/16/17 21:45 01:31 02:10 Temperature 99.4 F Pulse Rate 60 Respiratory 20 Rate Blood Pressure 108/52 O2 Sat by Pulse 98 98 Oximetry (%) 10/16/17 10/16/17 10/16/17 05:00 08:49 09:00 Temperature 97.9 F 97.8 F Pulse Rate 61 60 Respiratory 18 20 20 Rate Blood Pressure 113/74 110/55 O2 Sat by Pulse 99 Oximetry (%) 10/16/17 10/16/17 09:43 14:00 Temperature 98.5 F Pulse Rate 60 60 Respiratory 20 Rate Blood Pressure 115/55 O2 Sat by Pulse Oximetry (%) Intake & Output 10/14/17 10/15/17 10/16/17 10/17/17 07:59 07:59 07:59 07:59 Intake Total 472 622 3810 Balance 125 807 5132 nad no jvd jvd flat, irreg, s1s2 2/6 sys murmur at sternal border decreased bs at right base, nl effort no le e/c/c abd nt nd pos bs no jaundice diaphoresis awake alert no CBC, BMP today 10/14/17 05:35 10/14/17 05:35 ekg: afib, vr 94 bpm. LBBB. tele: demand vpacing, undelrying afib. head ct: no acue pathology. cxr: small bilateral pleural effusions. bilateral mixed reticular and airspace oopacities possibly 2/2 pulmonary edema, although infection/inflammation can't be excluded. echo 08/2017: nl lv size/fn. tds rwma. rv not well seen. valves not well seen, no gross pathology echo 09/2017: nl lv/rv, mild thuan, mild ar, mod as, mild tr, nl rvsp stress test 08/24/17: moderate sized, severe intensity + ischemia in mid anterior wall to apex and inferoapical wall. TID 1.22 A/p 89 m hx cad s/p nstemi 08/2017, dementia, ppm, afib, hld, dm, htn, sent from [place] for sob. resp distress, pna, vs acute chf: -possibly multifactorial with infection and chf contributing - improving with abx and iv lasix, -->will changed to lasix 40 po qd for maintenance today. no repeat bmp on iv lasix, will repeat today. mod as: -stable borderline increased troponins/known cad with hx of prior nstemi - flat trend and down from 08/2017 (when he had nstemi/demand in the setting of respiratory distress --> medically managed at that time per patient/family preference) Currently trop borderline elevated with flat/decreasing trend. Likely demand in the setting of underlying cad. no suspicion for acs. ekg lbbb. - con't med mgm't with statin, bb, ac with asa. afib: -rate controlled on dig (level ok / - will repeat), and bb (will change tartrate to bid dosing) con't. -cont ac with eliquis. (Also on ASA for recent nstemi) ppm: -routine outpt monitoring, has appt for check in office (ppm brand is LETICIA/Huey) hld: -cont statin htn: -stable/runs on lower end. con't to monitor.
[2017-10-16 17:34] LABS: ANION GAP 8 (8-16); BLOOD UREA NITROGEN 32 mg/dL (7-18); CALCIUM 8.6 mg/dL (8.5-10.1); CHLORIDE 102 mmol/L (98-107); CO2 27 mmol/L (21-32); GLUCOSE,RANDOM 109 mg/dL (74-106); MAGNESIUM 2.1 mg/dL (1.8-2.4); POTASSIUM 4.4 mmol/L (3.5-5.1); SODIUM 137 mmol/L (136-145)
[2017-10-16] MEDS: CEFTRIAXONE IN IS-OSM DEXTROSE 2 GM/50 ML BAG IVPB SCH (20:00)
[2017-10-16] MEDS: ATORVASTATIN CA 10 MG TABLET (FP) PO SCH (22:24)
[2017-10-17] MEDS: INSULIN SLIDING SCALE (NOVOLOG) 1 VIAL SQ SCH ×4 (06:36→21:55)
[2017-10-17] MEDS: METOPROLOL TARTRATE 25 MG TABLET (FP) PO SCH ×2 (09:42→21:55)
[2017-10-17] MEDS: CEFTRIAXONE 2 GM in DEXTROSE 5%-WATER - 100 ML IVPB SCH (09:42)
[2017-10-17] MEDS: FUROSEMIDE 40 MG TABLET (FP) PO SCH (09:42)
[2017-10-17] MEDS: ASCORBIC ACID 500 MG TABLET (FP) PO SCH (09:42)
[2017-10-17] MEDS: SILVER SULFADIAZINE 1% TOP CREAM 50 GM JAR TP SCH ×2 (09:43→21:56)
[2017-10-17] MEDS: ASPIRIN COATED 81 MG TABLET.EC PO SCH (09:43)
[2017-10-17] MEDS: CHOLECALCIFEROL (VITAMIN D3) 1,000 UNIT TABLET (FP) PO SCH (09:43)
[2017-10-17] MEDS: APIXABAN 5 MG TABLET PO SCH ×2 (09:43→21:55)
[2017-10-17] MEDS: MULTIVITAMINS (DAILY MVI) TABLET (FP) PO SCH (09:43)
[2017-10-17] MEDS: BRIMONIDINE TARTRATE 0.15% OPHTHALMIC 5 ML BOTTLE OU SCH ×2 (09:43→21:54)
[2017-10-17] MEDS: DIGOXIN 250 MCG/5 ML LIQUID PO SCH (09:45)
[2017-10-17] MEDS: TOLTERODINE TARTRATE LA 4 MG CAP.SR.24H (FP) PO SCH (09:46)
--- NOTE | 2017-10-17 10:12 | PN ---
Progress Note, Physician History of Present Illness: PULMONARY ALERT,COMFORTABLE,-RESP DISTRESS - Current Medication List Current Medications: Active Medications Albuterol/Ipratropium (Duoneb -) 1 amp NEB Q4H PRN PRN Reason: SHORTNESS OF BREATH Apixaban (Eliquis -) 5 mg PO BID [facility] Last Admin: 10/17/17 09:43 Dose: 5 mg Ascorbic Acid (Vitamin C -) 500 mg PO DAILY [facility] Last Admin: 10/17/17 09:42 Dose: 500 mg Aspirin (Ecotrin -) 81 mg PO DAILY [facility] Last Admin: 10/17/17 09:43 Dose: 81 mg Atorvastatin Calcium (Lipitor -) 10 mg PO HS [facility] Last Admin: 10/16/17 22:24 Dose: 10 mg Brimonidine Tartrate (Alphagan 0.15% -) 1 drop OU BID [facility] Last Admin: 10/17/17 09:43 Dose: 1 drop Cholecalciferol (Vitamin D3 -) 1,000 unit PO DAILY [facility] Last Admin: 10/17/17 09:43 Dose: 1,000 unit Digoxin (Lanoxin Oral Solution -) 250 mcg PO DAILY [facility] Last Admin: 10/17/17 09:45 Dose: 250 mcg Furosemide (Lasix -) 40 mg PO DAILY [facility] Last Admin: 10/17/17 09:42 Dose: 40 mg Ceftriaxone Sodium 2 gm/ (Dextrose) 100 mls @ 200 mls/hr IVPB DAILY [facility] Stop: 10/20/17 10:29 Last Admin: 10/17/17 09:42 Dose: 200 mls/hr Insulin Aspart (Novolog Vial Sliding Scale -) 1 vial SQ ACHS [facility] PRN Reason: Protocol Last Admin: 10/17/17 06:36 Dose: Not Given Metoprolol Tartrate (Lopressor -) 12.5 mg PO BID [facility] Last Admin: 10/17/17 09:42 Dose: 12.5 mg Multivitamins/Minerals/Vitamin C (Tab-A-Vit -) 1 tab PO DAILY [facility] Last Admin: 10/17/17 09:43 Dose: 1 tab Silver Sulfadiazine (Silvadene -) 1 applic TP BID [facility] Last Admin: 10/17/17 09:43 Dose: 1 applic Tolterodine Tartrate (Detrol La -) 4 mg PO DAILY [facility] Last Admin: 10/17/17 09:46 Dose: 4 mg - Objective Vital Signs: Vital Signs Temperature 97.9 F 10/17/17 08:17 Pulse Rate 60 10/17/17 09:45 Respiratory Rate 18 10/17/17 08:17 Blood Pressure 120/54 10/17/17 08:17 O2 Sat by Pulse Oximetry (%) 96 10/17/17 05:56 Constitutional: Yes: Well Nourished, Calm Eyes: Yes: WNL HENT: Yes: WNL Neck: Yes: WNL Cardiovascular: Yes: Pulse Irregular, S1, S2 Respiratory: Yes: Diminished Gastrointestinal: Yes: Normal Bowel Sounds, Soft Extremities: Yes: WNL Edema: No Labs: CBC, BMP Problem List - Problems (1) Lactate blood increase Code(s): R79.89 - OTHER SPECIFIED ABNORMAL FINDINGS OF BLOOD CHEMISTRY (2) DVT prophylaxis Code(s): GHB2009 - (3) Fall at [facility] Code(s): W19.XXXA - UNSPECIFIED FALL, INITIAL ENCOUNTER; Y92.129 - UNSP PLACE IN CUSTODIAL PLACE (4) HLD (hyperlipidemia) Code(s): E78.5 - HYPERLIPIDEMIA, UNSPECIFIED (5) HTN (hypertension) Code(s): I10 - ESSENTIAL (PRIMARY) HYPERTENSION (6) History of pacemaker Code(s): Z95.0 - PRESENCE OF CARDIAC PACEMAKER (7) Pneumonia Code(s): J18.9 - PNEUMONIA, UNSPECIFIED ORGANISM (8) A-fib Code(s): I48.91 - UNSPECIFIED ATRIAL FIBRILLATION Qualifiers: Atrial fibrillation type: permanent Qualified Code(s): I48.2 - Chronic atrial fibrillation (9) Acute hypoxemic respiratory failure Code(s): J96.01 - ACUTE RESPIRATORY FAILURE WITH HYPOXIA (10) Elevated troponin I level Code(s): R74.8 - ABNORMAL LEVELS OF OTHER SERUM ENZYMES (11) Respiratory failure with hypoxia Code(s): J96.91 - RESPIRATORY FAILURE, UNSPECIFIED WITH HYPOXIA (12) Troponin I above reference range Code(s): R74.8 - ABNORMAL LEVELS OF OTHER SERUM ENZYMES Assessment/Plan IMP ACUTE HYPOXEMIC RESPIRATORY FAILURE IMPROVED LIKELY PNEUMONIA CLINICALLY IMPROVED CHF IN=MPROVED +TROPONINS LIKELY DEMAND ISCHEMIA ELEVATED LACTATE LEVEL NORMAL AFIB S/P PPM PVD HLD H/O EYELID CA PLAN ABX PER ID O2 INHALED BRONCHODILATORS PO LASIX CHEST X-RAY AM DR ECHOLS Problem List - Problems (1) Lactate blood increase Code(s): R79.89 - OTHER SPECIFIED ABNORMAL FINDINGS OF BLOOD CHEMISTRY (2) DVT prophylaxis Code(s): [id number] - (3) Fall at [facility] Code(s): W19.XXXA - UNSPECIFIED FALL, INITIAL ENCOUNTER; Y92.129 - UNSP PLACE IN CUSTODIAL PLACE (4) HLD (hyperlipidemia) Code(s): E78.5 - HYPERLIPIDEMIA, UNSPECIFIED (5) HTN (hypertension) Code(s): I10 - ESSENTIAL (PRIMARY) HYPERTENSION (6) History of pacemaker Code(s): Z95.0 - PRESENCE OF CARDIAC PACEMAKER (7) Pneumonia Code(s): J18.9 - PNEUMONIA, UNSPECIFIED ORGANISM (8) A-fib Code(s): I48.91 - UNSPECIFIED ATRIAL FIBRILLATION Qualifiers: Atrial fibrillation type: permanent Qualified Code(s): I48.2 - Chronic atrial fibrillation (9) Acute hypoxemic respiratory failure Code(s): J96.01 - ACUTE RESPIRATORY FAILURE WITH HYPOXIA (10) Elevated troponin I level Code(s): R74.8 - ABNORMAL LEVELS OF OTHER SERUM ENZYMES (11) Respiratory failure with hypoxia Code(s): J96.91 - RESPIRATORY FAILURE, UNSPECIFIED WITH HYPOXIA (12) Troponin I above reference range Code(s): R74.8 - ABNORMAL LEVELS OF OTHER SERUM ENZYMES
--- NOTE | 2017-10-17 11:28 | PN ---
Progress Note (short form) - Note Progress Note: s: no cp sob palps dizzy o: Vital Signs Period Temp Pulse Resp BP Sys/Hernandez Pulse Ox Last 24 Hr 97.8 F-99.1 F 60-63 17-20 96-120/44-56 96-96 nad no jvd jvd flat, irreg, s1s2 2/6 sys murmur at sternal border decreased bs at right base, nl effort no le e/c/c abd nt nd pos bs no jaundice diaphoresis awake alert Current Medications Generic Name Dose Route Start Last Admin Trade Name Freq PRN Reason Stop Dose Admin Albuterol/Ipratropium 1 amp 10/12/17 12:06 Duoneb - NEB Q4H PRN SHORTNESS OF BREATH Apixaban 5 mg 10/11/17 22:30 10/17/17 09:43 Eliquis - PO 5 mg BID [facility] Administration Ascorbic Acid 500 mg 10/12/17 10:00 10/17/17 09:42 Vitamin C - PO 500 mg DAILY [facility] Administration Aspirin 81 mg 10/12/17 10:00 10/17/17 09:43 Ecotrin - PO 81 mg DAILY [facility] Administration Atorvastatin Calcium 10 mg 10/12/17 22:00 10/16/17 22:24 Lipitor - PO 10 mg HS [facility] Administration Brimonidine Tartrate 1 drop 10/11/17 22:30 10/17/17 09:43 Alphagan 0.15% - OU 1 drop BID [facility] Administration Cholecalciferol 1,000 unit 10/12/17 10:00 10/17/17 09:43 Vitamin D3 - PO 1,000 unit DAILY [facility] Administration Digoxin 250 mcg 10/12/17 21:45 10/17/17 09:45 Lanoxin Oral Solution - PO 250 mcg DAILY [facility] Administration Furosemide 40 mg 10/16/17 10:00 10/17/17 09:42 Lasix - PO 40 mg DAILY [facility] Administration Ceftriaxone Sodium 2 gm/ 100 mls @ 200 mls/hr 10/16/17 10:00 10/17/17 09:42 Dextrose IVPB 10/20/17 10:29 200 mls/hr DAILY [facility] Administration Insulin Aspart 1 vial 10/13/17 07:00 10/17/17 11:26 Novolog Vial Sliding Scale - SQ 4 units ACHS [facility] Administration Protocol Metoprolol Tartrate 12.5 mg 10/17/17 10:00 10/17/17 09:42 Lopressor - PO 12.5 mg BID [facility] Administration Multivitamins/Minerals/Vitamin C 1 tab 10/12/17 10:00 10/17/17 09:43 Tab-A-Vit - PO 1 tab DAILY [facility] Administration Silver Sulfadiazine 1 applic 10/12/17 10:00 10/17/17 09:43 Silvadene - TP 1 applic BID [facility] Administration Tolterodine Tartrate 4 mg 10/12/17 10:00 10/17/17 09:46 Detrol La - PO 4 mg DAILY [facility] Administration CBC, BMP 10/14/17 05:35 10/16/17 16:50 ekg: afib, vr 94 bpm. LBBB. tele: demand vpacing, undelrying afib. head ct: no acue pathology. cxr: small bilateral pleural effusions. bilateral mixed reticular and airspace oopacities possibly 2/2 pulmonary edema, although infection/inflammation can't be excluded. echo 08/2017: nl lv size/fn. tds rwma. rv not well seen. valves not well seen, no gross pathology echo 09/2017: nl lv/rv, mild thuan, mild ar, mod as, mild tr, nl rvsp stress test 08/24/17: moderate sized, severe intensity + ischemia in mid anterior wall to apex and inferoapical wall. TID 1.22 A/p 89 m hx cad s/p nstemi 08/2017, dementia, ppm, afib, hld, dm, htn, sent from [facility] for sob. resp distress, pna, vs acute chf: -possibly multifactorial with infection and chf contributing - improving with abx and iv lasix, now on po lasix mod as: -stable borderline increased troponins/known cad with hx of prior nstemi - flat trend and down from 08/2017 (when he had nstemi/demand in the setting of respiratory distress --> medically managed at that time per patient/family preference) Currently trop borderline elevated with flat/decreasing trend. Likely demand in the setting of underlying cad. no suspicion for acs. ekg lbbb. - con't med mgm't with statin, bb, ac with asa. afib: -rate controlled on dig (level ok 10/11 - will repeat), and bb (will change tartrate to bid dosing) con't. -cont ac with eliquis. (Also on ASA for recent nstemi) ppm: -routine outpt monitoring, has appt for check in office (ppm brand is LETICIA/Huey) hld: -cont statin htn: -stable/runs on lower end. con't to monitor.
--- NOTE | 2017-10-17 11:52 | PN ---
Progress Note, Physician Chief Complaint: feels well No SOB Mild cough - Current Medication List Current Medications: Active Medications Albuterol/Ipratropium (Duoneb -) 1 amp NEB Q4H PRN PRN Reason: SHORTNESS OF BREATH Apixaban (Eliquis -) 5 mg PO BID [facility] Last Admin: 10/17/17 09:43 Dose: 5 mg Ascorbic Acid (Vitamin C -) 500 mg PO DAILY [facility] Last Admin: 10/17/17 09:42 Dose: 500 mg Aspirin (Ecotrin -) 81 mg PO DAILY [facility] Last Admin: 10/17/17 09:43 Dose: 81 mg Atorvastatin Calcium (Lipitor -) 10 mg PO HS [facility] Last Admin: 10/16/17 22:24 Dose: 10 mg Brimonidine Tartrate (Alphagan 0.15% -) 1 drop OU BID [facility] Last Admin: 10/17/17 09:43 Dose: 1 drop Cholecalciferol (Vitamin D3 -) 1,000 unit PO DAILY [facility] Last Admin: 10/17/17 09:43 Dose: 1,000 unit Digoxin (Lanoxin Oral Solution -) 250 mcg PO DAILY [facility] Last Admin: 10/17/17 09:45 Dose: 250 mcg Furosemide (Lasix -) 40 mg PO DAILY [facility] Last Admin: 10/17/17 09:42 Dose: 40 mg Ceftriaxone Sodium 2 gm/ (Dextrose) 100 mls @ 200 mls/hr IVPB DAILY [facility] Stop: 10/20/17 10:29 Last Admin: 10/17/17 09:42 Dose: 200 mls/hr Insulin Aspart (Novolog Vial Sliding Scale -) 1 vial SQ ACHS [facility] PRN Reason: Protocol Last Admin: 10/17/17 11:26 Dose: 4 units Metoprolol Tartrate (Lopressor -) 12.5 mg PO BID [facility] Last Admin: 10/17/17 09:42 Dose: 12.5 mg Multivitamins/Minerals/Vitamin C (Tab-A-Vit -) 1 tab PO DAILY [facility] Last Admin: 10/17/17 09:43 Dose: 1 tab Silver Sulfadiazine (Silvadene -) 1 applic TP BID [facility] Last Admin: 10/17/17 09:43 Dose: 1 applic Tolterodine Tartrate (Detrol La -) 4 mg PO DAILY [facility] Last Admin: 10/17/17 09:46 Dose: 4 mg - Objective Vital Signs: Vital Signs Temperature 97.9 F 10/17/17 08:17 Pulse Rate 60 10/17/17 09:45 Respiratory Rate 18 10/17/17 08:17 Blood Pressure 120/54 10/17/17 08:17 O2 Sat by Pulse Oximetry (%) 96 10/17/17 08:00 Constitutional: Yes: No Distress Cardiovascular: Yes: Pulse Irregular Respiratory: Yes: Diminished. No: Rales, Rhonchi Gastrointestinal: Yes: Normal Bowel Sounds, Soft. No: Tenderness Edema: No Labs: CBC, BMP 10/14/17 05:35 10/16/17 16:50 INR, PTT INR 1.48 (0.82-1.09) H 10/11/17 17:00 Problem List - Problems (1) CHF exacerbation Code(s): I50.9 - HEART FAILURE, UNSPECIFIED (2) Diabetes mellitus Code(s): E11.9 - TYPE 2 DIABETES MELLITUS WITHOUT COMPLICATIONS (3) Pneumonia Code(s): J18.9 - PNEUMONIA, UNSPECIFIED ORGANISM (4) Troponin I above reference range Code(s): R74.8 - ABNORMAL LEVELS OF OTHER SERUM ENZYMES (5) A-fib Code(s): I48.91 - UNSPECIFIED ATRIAL FIBRILLATION Qualifiers: Atrial fibrillation type: permanent Qualified Code(s): I48.2 - Chronic atrial fibrillation (6) Respiratory failure with hypoxia Code(s): J96.91 - RESPIRATORY FAILURE, UNSPECIFIED WITH HYPOXIA Assessment/Plan PLAN CHF -- IV Lasix--> change to PO -- Monitor renal function-->stable -- check daily weights Pneumonia -- iv antibiotics -- Nebs as needed -- BIPAP on standby, pt has not used it since admission Afib -- on Eliquis -- Rate is controlled . om Digoxin and Lopressor PT eval better dc planning
[2017-10-17] MEDS ORDERED: PT OWN MED DRAWER 7, Y5N ONE (21:54)
[2017-10-17] MEDS: ATORVASTATIN CA 10 MG TABLET (FP) PO SCH (21:55)
[2017-10-18] MEDS: INSULIN SLIDING SCALE (NOVOLOG) 1 VIAL SQ SCH ×2 (06:16→12:42)
[2017-10-18] MEDS ORDERED: PT OWN MED DRAWER 7, Y5N ONE (09:14)
[2017-10-18] MEDS: CHOLECALCIFEROL (VITAMIN D3) 1,000 UNIT TABLET (FP) PO SCH (09:41)
[2017-10-18] MEDS: METOPROLOL TARTRATE 25 MG TABLET (FP) PO SCH (09:42)
[2017-10-18] MEDS: FUROSEMIDE 40 MG TABLET (FP) PO SCH (09:42)
[2017-10-18] MEDS: APIXABAN 5 MG TABLET PO SCH (09:43)
[2017-10-18] MEDS: MULTIVITAMINS (DAILY MVI) TABLET (FP) PO SCH (09:43)
[2017-10-18] MEDS: ASPIRIN COATED 81 MG TABLET.EC PO SCH (09:44)
[2017-10-18] MEDS: CEFTRIAXONE 2 GM in DEXTROSE 5%-WATER - 100 ML IVPB SCH (09:44)
[2017-10-18] MEDS: TOLTERODINE TARTRATE LA 4 MG CAP.SR.24H (FP) PO SCH (09:44)
[2017-10-18] MEDS: BRIMONIDINE TARTRATE 0.15% OPHTHALMIC 5 ML BOTTLE OU SCH (09:44)
[2017-10-18] MEDS: DIGOXIN 250 MCG/5 ML LIQUID PO SCH (09:45)
[2017-10-18] MEDS: ASCORBIC ACID 500 MG TABLET (FP) PO SCH (09:45)
[2017-10-18] MEDS: SILVER SULFADIAZINE 1% TOP CREAM 50 GM JAR TP SCH (09:46)
--- NOTE | 2017-10-18 10:53 | PN ---
Progress Note, Physician History of Present Illness: pulmonary alert,-resp distress,+diarrhea - Current Medication List Current Medications: Active Medications Apixaban (Eliquis -) 5 mg PO BID [facility] Last Admin: 10/18/17 09:43 Dose: 5 mg Ascorbic Acid (Vitamin C -) 500 mg PO DAILY [facility] Last Admin: 10/18/17 09:45 Dose: 500 mg Aspirin (Ecotrin -) 81 mg PO DAILY [facility] Last Admin: 10/18/17 09:44 Dose: 81 mg Atorvastatin Calcium (Lipitor -) 10 mg PO HS [facility] Last Admin: 10/17/17 21:55 Dose: 10 mg Brimonidine Tartrate (Alphagan 0.15% -) 1 drop OU BID [facility] Last Admin: 10/18/17 09:44 Dose: 1 drop Cholecalciferol (Vitamin D3 -) 1,000 unit PO DAILY [facility] Last Admin: 10/18/17 09:41 Dose: 1,000 unit Digoxin (Lanoxin Oral Solution -) 250 mcg PO DAILY [facility] Last Admin: 10/18/17 09:45 Dose: 250 mcg Furosemide (Lasix -) 40 mg PO DAILY [facility] Last Admin: 10/18/17 09:42 Dose: 40 mg Ceftriaxone Sodium 2 gm/ (Dextrose) 100 mls @ 200 mls/hr IVPB DAILY [facility] Stop: 10/20/17 10:29 Last Admin: 10/18/17 09:44 Dose: 200 mls/hr Insulin Aspart (Novolog Vial Sliding Scale -) 1 vial SQ ACHS [facility] PRN Reason: Protocol Last Admin: 10/18/17 06:16 Dose: Not Given Metoprolol Tartrate (Lopressor -) 12.5 mg PO BID [facility] Last Admin: 10/18/17 09:42 Dose: 12.5 mg Multivitamins/Minerals/Vitamin C (Tab-A-Vit -) 1 tab PO DAILY [facility] Last Admin: 10/18/17 09:43 Dose: 1 tab Silver Sulfadiazine (Silvadene -) 1 applic TP BID [facility] Last Admin: 10/18/17 09:46 Dose: 1 applic Tolterodine Tartrate (Detrol La -) 4 mg PO DAILY [facility] Last Admin: 10/18/17 09:44 Dose: 4 mg - Objective Vital Signs: Vital Signs Temperature 97.6 F 10/18/17 10:00 Pulse Rate 61 10/18/17 10:00 Respiratory Rate 18 10/18/17 10:00 Blood Pressure 109/54 10/18/17 10:00 O2 Sat by Pulse Oximetry (%) 98 10/18/17 09:00 Constitutional: Yes: Well Nourished, Calm Eyes: Yes: WNL HENT: Yes: WNL Cardiovascular: Yes: Pulse Irregular, S1, S2 Respiratory: Yes: Rales (bilateral crackles 1/3 up) Gastrointestinal: Yes: Normal Bowel Sounds, Soft Extremities: Yes: WNL Edema: No Problem List - Problems (1) Lactate blood increase Code(s): R79.89 - OTHER SPECIFIED ABNORMAL FINDINGS OF BLOOD CHEMISTRY (2) DVT prophylaxis Code(s): [id number] - (3) Fall at [facility] Code(s): W19.XXXA - UNSPECIFIED FALL, INITIAL ENCOUNTER; Y92.129 - UNSP PLACE IN [facility] PLACE (4) HLD (hyperlipidemia) Code(s): E78.5 - HYPERLIPIDEMIA, UNSPECIFIED (5) HTN (hypertension) Code(s): I10 - ESSENTIAL (PRIMARY) HYPERTENSION (6) History of pacemaker Code(s): Z95.0 - PRESENCE OF CARDIAC PACEMAKER (7) Pneumonia Code(s): J18.9 - PNEUMONIA, UNSPECIFIED ORGANISM (8) A-fib Code(s): I48.91 - UNSPECIFIED ATRIAL FIBRILLATION Qualifiers: Atrial fibrillation type: permanent Qualified Code(s): I48.2 - Chronic atrial fibrillation (9) Acute hypoxemic respiratory failure Code(s): J96.01 - ACUTE RESPIRATORY FAILURE WITH HYPOXIA (10) Elevated troponin I level Code(s): R74.8 - ABNORMAL LEVELS OF OTHER SERUM ENZYMES (11) Respiratory failure with hypoxia Code(s): J96.91 - RESPIRATORY FAILURE, UNSPECIFIED WITH HYPOXIA (12) Troponin I above reference range Code(s): R74.8 - ABNORMAL LEVELS OF OTHER SERUM ENZYMES Assessment/Plan IMP ACUTE HYPOXEMIC RESPIRATORY FAILURE IMPROVED LIKELY PNEUMONIA CLINICALLY IMPROVED CHF IN=MPROVED +TROPONINS LIKELY DEMAND ISCHEMIA ELEVATED LACTATE LEVEL NORMAL AFIB S/P PPM PVD HLD H/O EYELID CA DIARRHEA PLAN ABX PER ID O2 INHALED BRONCHODILATORS PO LASIX STOOL FOR C-DIF CHEST X-RAY DR ECHOLS Problem List - Problems (1) Lactate blood increase Code(s): R79.89 - OTHER SPECIFIED ABNORMAL FINDINGS OF BLOOD CHEMISTRY (2) DVT prophylaxis Code(s): [id number] - (3) Fall at [facility] Code(s): W19.XXXA - UNSPECIFIED FALL, INITIAL ENCOUNTER; Y92.129 - UNSP PLACE IN [facility] PLACE (4) HLD (hyperlipidemia) Code(s): E78.5 - HYPERLIPIDEMIA, UNSPECIFIED (5) HTN (hypertension) Code(s): I10 - ESSENTIAL (PRIMARY) HYPERTENSION (6) History of pacemaker Code(s): Z95.0 - PRESENCE OF CARDIAC PACEMAKER (7) Pneumonia Code(s): J18.9 - PNEUMONIA, UNSPECIFIED ORGANISM (8) A-fib Code(s): I48.91 - UNSPECIFIED ATRIAL FIBRILLATION Qualifiers: Atrial fibrillation type: permanent Qualified Code(s): I48.2 - Chronic atrial fibrillation (9) Acute hypoxemic respiratory failure Code(s): J96.01 - ACUTE RESPIRATORY FAILURE WITH HYPOXIA (10) Elevated troponin I level Code(s): R74.8 - ABNORMAL LEVELS OF OTHER SERUM ENZYMES (11) Respiratory failure with hypoxia Code(s): J96.91 - RESPIRATORY FAILURE, UNSPECIFIED WITH HYPOXIA (12) Troponin I above reference range Code(s): R74.8 - ABNORMAL LEVELS OF OTHER SERUM ENZYMES
--- NOTE | 2017-10-18 10:54 | DS ---
Physical Examination Vital Signs: Vital Signs Temperature 97.6 F 10/18/17 10:00 Pulse Rate 61 10/18/17 10:00 Respiratory Rate 18 10/18/17 10:00 Blood Pressure 109/54 10/18/17 10:00 O2 Sat by Pulse Oximetry (%) 98 10/18/17 09:00 Constitutional: Yes: No Distress Eyes: Yes: Conjunctiva Clear Neck: Yes: Supple Cardiovascular: Yes: Pulse Irregular Respiratory: Yes: Diminished Gastrointestinal: Yes: Soft Labs: CBC, BMP 10/14/17 05:35 10/16/17 16:50 Discharge Summary Reason For Visit: PNEUMONIA Current Active Problems CHF exacerbation (Acute) DVT prophylaxis (Acute) Decubitus ulcer (Acute) Diabetes mellitus (Acute) Fall at care home (Acute) HLD (hyperlipidemia) (Acute) HTN (hypertension) (Acute) History of pacemaker (Acute) Lactate blood increase (Acute) OAB (overactive bladder) (Acute) Pneumonia (Acute) Troponin I above reference range (Acute) Hospital Course: dictated. Condition: Stable - Instructions Referrals: Aj Carranza MD [Primary Care Provider] - Disposition: [facility] - Home Medications Comprehensive Discharge Medication List: Ambulatory Orders Acetaminophen 650 mg PO BID 10/11/17 Apixaban [Eliquis] 5 mg PO BID 10/11/17 Ascorbic Acid [Vitamin C] 500 mg PO DAILY 10/11/17 Aspirin [Aspirin EC] 81 mg PO DAILY 10/11/17 Brimonidine Tartrate [Alphagan 0.15% -] 1 drop OD TID 10/11/17 Cholecalciferol (Vitamin D3) [Vitamin D3] 1,000 unit PO DAILY 10/11/17 Digoxin 0.5 mg PO DAILY 10/11/17 Insulin Glargine,Hum.rec.anlog [Lantus Solostar] 10 unit SQ HS 10/11/17 Metformin HCl [Metformin HCl ER] 1,000 mg PO BID 10/11/17 Metoprolol Tartrate 25 mg PO DAILY 10/11/17 Multivitamin [Multiple Vitamins] 1 each PO DAILY 10/11/17 Silver Sulfadiazine 1% Top Cr [Silvadene -] 1 applic TP BID 10/11/17 Simvastatin 20 mg PO HS 10/11/17 Sitagliptin Phosphate [Januvia] 100 mg PO DAILY 10/11/17 Tolterodine Tartrate [Tolterodine Tartrate ER] 4 mg PO DAILY 10/11/17 Zinc Oxide 20% Topical Oint 454 gm TD BID 10/11/17 Zinc Sulfate 220 mg PO DAILY 10/11/17 Albuterol 2.5/Ipratropium 0.5 [Duoneb -] 1 amp NEB Q4H PRN amp 10/18/17 Amoxicillin/Potassium Clav [Augmentin 875-125 Tablet] 1 each PO BID #10 tablet 10/18/17 Furosemide [Lasix -] 40 mg PO DAILY tablet 10/18/17 Insulin Sliding Scale [Novolog Vial Sliding Scale -] 1 vial SQ ACHS units 10/18 Multivitamins [Multivit ([facility] Formul[facility])] 1 tab PO DAILY tab 10/18/17
--- NOTE | 2017-10-18 12:14 | PN ---
Progress Note, Physician Chief Complaint: sob History of Present Illness: no sob--breathing much better no cp no leg swelling no palp - Current Medication List Current Medications: Active Medications Apixaban (Eliquis -) 5 mg PO BID [facility] Last Admin: 10/18/17 09:43 Dose: 5 mg Ascorbic Acid (Vitamin C -) 500 mg PO DAILY [facility] Last Admin: 10/18/17 09:45 Dose: 500 mg Aspirin (Ecotrin -) 81 mg PO DAILY [facility] Last Admin: 10/18/17 09:44 Dose: 81 mg Atorvastatin Calcium (Lipitor -) 10 mg PO HS [facility] Last Admin: 10/17/17 21:55 Dose: 10 mg Brimonidine Tartrate (Alphagan 0.15% -) 1 drop OU BID [facility] Last Admin: 10/18/17 09:44 Dose: 1 drop Cholecalciferol (Vitamin D3 -) 1,000 unit PO DAILY [facility] Last Admin: 10/18/17 09:41 Dose: 1,000 unit Digoxin (Lanoxin Oral Solution -) 250 mcg PO DAILY [facility] Last Admin: 10/18/17 09:45 Dose: 250 mcg Furosemide (Lasix -) 40 mg PO DAILY [facility] Last Admin: 10/18/17 09:42 Dose: 40 mg Ceftriaxone Sodium 2 gm/ (Dextrose) 100 mls @ 200 mls/hr IVPB DAILY [facility] Stop: 10/20/17 10:29 Last Admin: 10/18/17 09:44 Dose: 200 mls/hr Insulin Aspart (Novolog Vial Sliding Scale -) 1 vial SQ ACHS [facility] PRN Reason: Protocol Last Admin: 10/18/17 06:16 Dose: Not Given Metoprolol Tartrate (Lopressor -) 12.5 mg PO BID [facility] Last Admin: 10/18/17 09:42 Dose: 12.5 mg Multivitamins/Minerals/Vitamin C (Tab-A-Vit -) 1 tab PO DAILY [facility] Last Admin: 10/18/17 09:43 Dose: 1 tab Silver Sulfadiazine (Silvadene -) 1 applic TP BID [facility] Last Admin: 10/18/17 09:46 Dose: 1 applic Tolterodine Tartrate (Detrol La -) 4 mg PO DAILY [facility] Last Admin: 10/18/17 09:44 Dose: 4 mg - Objective Vital Signs: Vital Signs Temperature 97.6 F 10/18/17 10:00 Pulse Rate 61 10/18/17 10:00 Respiratory Rate 18 10/18/17 10:00 Blood Pressure 109/54 10/18/17 10:00 O2 Sat by Pulse Oximetry (%) 98 10/18/17 09:00 Constitutional: Yes: Well Nourished, No Distress, Calm Cardiovascular: Yes: Regular Rate and Rhythm (decr sounds), JVD, Murmur (soft FABIANA rusb), S1, S2. No: Gallop Respiratory: Yes: Regular, CTA Bilaterally. No: Accessory Muscle Use, Rales, Wheezes Extremities: No: Cold Edema: No Neurological: Yes: Alert. No: Seizure Psychiatric: No: Agitated Labs: CBC, BMP 10/14/17 05:35 10/16/17 16:50 INR, PTT INR 1.48 (0.82-1.09) H 10/11/17 17:00 Assessment/Plan ekg: afib, vr [address]: no acue pathology. cxr: small bilateral pleural effusions. bilateral mixed reticular and airspace oopacities possibly 2/2 pulmonary edema, although infection/inflammation can't be excluded. echo 09/2017: nl lv/rv, mild thuan, mild ar, mod as, mild tr, nl rvsp stress test 08/24/17: moderate sized, severe intensity + ischemia in mid anterior wall to apex and inferoapical wall. TID 1.22 tele: afib/flutter, V-paced (no tachy) A/p 89 m hx cad s/p nstemi 08/2017, dementia, ppm, afib, hld, dm, htn, sent [place] for sob. acute hypoxemic resp distress, pna; ? component of acute diast chf: -tx of probable PNA as doing per pulmonary -clinically improving -s/p iv lasix here, now on po. -JVD present, but no sob or edema. continue lasix 40 po qd as doing--incr to 40 bid if sob develops moderate as: -stable -routine outpt f/u borderline increased troponins/known cad with hx of prior nstemi - flat trend and down from 08/2017 (when he had nstemi/demand in the setting of respiratory distress --> medically managed at that time per patient/family preference) Currently trop borderline elevated with flat/decreasing trend. Likely demand in the setting of underlying cad. no suspicion for acs. ekg lbbb. - con't med mgm't with statin, bb, ac with asa. - rec low threshold to stop ASA if hgb trends down. o/w would complete 6 mo then stop it (and cont AC only at that time) afib: -rate controlled on dig (level ok 4/2 - will repeat), and bb (will change tartrate to bid dosing) con't. -cont ac with eliquis. ppm: -routine outpt monitoring, has appt for check in office (ppm brand is LETICIA/Huey) hld: -cont statin htn: -stable/runs on lower end. -same meds, observe bp trend
[2017-10-18 16:46] VITALS: BP 104/52; PULSE 60; TEMP 97.5
--- NOTE | 2017-10-19 00:52 | DS ---
DATE OF ADMISSION: 10/11/2017 DATE OF DISCHARGE: 10/18/2017 This patient is an 89-year-old gentleman with extensive past medical history of dementia, peripheral vascular disease, coronary artery disease, overactive bladder, atrial fibrillation, status post pacemaker, hypertension, hyperlipidemia, and diabetes was admitted to the hospital when he was sent to the emergency room from [facility] with shortness of breath and status post fall. Patient was admitted to telemetry for [id number] respiratory failure, hypoxia secondary to aspiration pneumonia. Patient treated with IV antibiotics, BiPAP, IV Lasix as he was also found in CHF exacerbation. Patient was followed by Cardiology as well as Pulmonary. Patient stabilized. During the course, the patient also had CT of the chest done on October 13, which showed improved pulmonary vascular congestion compared to previous chest x-ray. Follow up chest x-ray done today also showed marked improvement. PHYSICAL EXAMINATION: General: Patient is seen today, awake and comfortable. On examination, he was not in distress. Vital Signs: Stable. Lungs: Diminished breath sounds at the bases. Heart: Sounds irregular. Abdomen: Soft. Extremities: No edema. Neurologic: He was awake. ASSESSMENT AND PLAN: Patient stabilized, much improved. Patient discharged to retirement today. All of the medications were reconciled. It was also discussed with nursing staff. Fall precautions will be stressed at retirement. MIKE PATEL M.D. [id number]
== END 2017-10-18 15:37 | DRG 193 ==
LOC: SUPCPDRO 16:47 → JER 16:47 → JERBED 20:14 → J4W 10-12 01:50
PROVIDERS: ADMIT Internal Medicine; ATTEND Internal Medicine
DX: J18.9 Pneumonia, unspecified organism (principal); J96.01 Acute respiratory failure with hypoxia; G93.41 Metabolic encephalopathy; I50.31 Acute diastolic (congestive) heart failure; E87.2 Acidosis; I48.92 Unspecified atrial flutter; I24.8 Other forms of acute ischemic heart disease; I25.10 Atherosclerotic heart disease of native coronary artery without angina pectoris; N32.81 Overactive bladder; E78.5 Hyperlipidemia, unspecified; L89.312 Pressure ulcer of right buttock, stage 2; E11.21 Type 2 diabetes mellitus with diabetic nephropathy; E11.51 Type 2 diabetes mellitus with diabetic peripheral angiopathy without gangrene; F03.90 Unspecified dementia, unspecified severity, without behavioral disturbance, psychotic disturbance, mood disturbance, and anxiety; R74.8 Abnormal levels of other serum enzymes; I48.2 Chronic atrial fibrillation; I44.7 Left bundle-branch block, unspecified; Z66 Do not resuscitate; I35.0 Nonrheumatic aortic (valve) stenosis; D72.829 Elevated white blood cell count, unspecified; W18.30XA Fall on same level, unspecified, initial encounter; Y92.129 Unspecified place in nursing home as the place of occurrence of the external cause; I11.0 Hypertensive heart disease with heart failure; Z87.891 Personal history of nicotine dependence; Z95.0 Presence of cardiac pacemaker; Z85.840 Personal history of malignant neoplasm of eye
CPT/HCPCS: 36415; 70450-TC; 71045-TC-FY; 71250-TC; 80048; 80053; 80162; 82550; 82803; 82962; 83605; 83735; 83880; 84100; 84484; 85025; 85610; 87040; 87070; 87077; 87205; 87804; 93005; 93010; 94660; 94761; 97116-GP; 97161-GP; 99285-25; G0480